=== PATIENT | male | born 1955 | race Caucasian/White ===

== ENCOUNTER 2019-05-08 19:31 | Observation (INO) | payer OTHER ==
[2019-05-08 19:37] VITALS: BMI 27.7
--- NOTE | 2019-05-08 19:37 | PDOC ---
Rapid Medical Evaluation Time Seen by Provider: 05/08/19 19:33 Medical Evaluation: Allergies Allergy/AdvReac Type Severity Reaction Status Date / Time Penicillins Allergy Verified 03/04/16 08:59 05/08/19 19:34 CC: Abdominal pain with SOB x2 days PE: Scattered exp wheezes. Orders: labs, cxr, ekg Patient will proceed to ED for further evaluation. Discharge Disposition - Diagnosis SOB (shortness of breath) - Referrals - Patient Instructions - Post Discharge Activity
--- NOTE | 2019-05-08 20:37 | PDOC ---
Attending Attestation - Resident Resident Name: Virgilio Norris - ED Attending Attestation I have performed the following: I have examined & evaluated the patient, The case was reviewed & discussed with the resident, I agree w/resident's findings & plan - HPI HPI: 05/08/19 23:26 see resident hpi - Physicial Exam PE: 05/08/19 23:27 see resident exam - Medical Decision Making 05/08/19 23:28 64-year-old male with dyspnea, worsening as well as intermittent chest pain Patient does have an extensive history including valve replacement secondary to endocarditis/IV drug use Due to hypoxia a CTA of the chest has been ordered EKG shows a sinus rhythm at 75 bpm with a right bundle branch block Patient symptoms improved after albuterol We will admit to medical service for serial troponins and further management
--- NOTE | 2019-05-08 20:38 | PDOC ---
History of Present Illness - General Chief Complaint: Pain Stated Complaint: SOB Time Seen by Provider: 05/08/19 19:33 - History of Present Illness Initial Comments: 05/08/19 20:38 64 yo M with h/o DM, Mitral valve replacement, IV heroin abuse, Hep C who p/w SOB. Patient reports two days of intermittent sob at rest and with exertion. States that he feel likes he occasionally gasps for air, with no identifiable triggers. Also endorses intermittent lightheadedness at rest and with exertion. Recent evaluation at [facility] for epigastria pain. Patient denies MILNER, LOC, vision change, palpitations, cough, wheezing, PND, leg swelling/pain, N/V, F,C, CP, urinary complaints, hematuria, BPR, diarrhea, constipation, weakness, sensory changes. PMHx: as noted above. Denies h/Anibal, stent placement, CABG, PE/DVT. Denies hormone therapy, recent surgery, travel, or immobilization. ROS: as noted SHx: + daily tobacco use 1/4 ppd. Denies IVDA. Allergies: PCN PMD: Alli Ayers Past History - Past Medical History Allergies/Adverse Reactions: Allergies Allergy/AdvReac Type Severity Reaction Status Date / Time Penicillins Allergy Verified 05/08/19 19:37 Home Medications: Ambulatory Orders Famotidine [Pepcid] 40 mg PO DAILY #30 tablet 03/04/16 metFORMIN HCL [Metformin HCl ER] 1,000 mg PO BID 03/04/16 Aripiprazole [Abilify] 5 mg PO DAILY #30 tablet 03/29/18 Aripiprazole [Abilify] 5 mg PO DAILY #30 tablet 05/03/18 Buspirone HCl [Buspar -] 15 mg PO BID #60 tablet 05/03/18 Sertraline HCl [Zoloft -] 50 mg PO DAILY #30 tablet 05/03/18 Buspirone HCl [Buspar -] 15 mg PO BID #60 tablet 07/05/18 Sertraline HCl [Zoloft -] 50 mg PO DAILY #30 tablet 07/05/18 Aripiprazole [Abilify] 5 mg PO HS #30 tablet 08/16/18 Buspirone HCl [Buspar -] 15 mg PO BID #60 tablet 08/16/18 Sertraline HCl [Zoloft -] 50 mg PO DAILY #30 tablet 08/16/18 Aripiprazole [Abilify] 10 mg PO HS #30 tablet 09/13/18 Buspirone HCl [Buspar -] 15 mg PO BID #60 tablet 09/13/18 Sertraline HCl [Zoloft -] 50 mg PO DAILY #30 tablet 09/13/18 Buspirone HCl [Buspar -] 15 mg PO BID #60 tablet 11/08/18 Sertraline HCl [Zoloft -] 50 mg PO DAILY #30 tablet 11/08/18 Buspirone HCl [Buspar -] 15 mg PO BID #60 tablet 12/06/18 Sertraline HCl [Zoloft -] 50 mg PO DAILY #30 tablet 12/06/18 Buspirone HCl [Buspar -] 15 mg PO BID #60 tablet 01/03/19 Sertraline HCl [Zoloft -] 50 mg PO DAILY #30 tablet 01/03/19 Buspirone HCl [Buspar -] 15 mg PO BID #60 tablet 03/12/19 Sertraline HCl [Zoloft -] 50 mg PO DAILY #30 tablet 03/12/19 Asthma: Yes Cancer: No Cardiac Disorders: Yes (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 4 years ago [facility]) CVA: No COPD: Yes CHF: No Diabetes: Yes HTN: No Hypercholesterolemia: No Seizures: No Thyroid Disease: No - Surgical History Cardiac Surgery: Yes (PIV valve mitral 4 years ago) Orthopedic Surgery: Yes (Spinal fusion L2 L3) - Psycho Social/Smoking Cessation Hx Smoking History: Current every day smoker Have you smoked in the past 12 months: Yes Number of Cigarettes Smoked Daily: 3 Information on smoking cessation initiated: Yes 'Breaking Loose' booklet given: 03/04/16 Hx Alcohol Use: No Drug/Substance Use Hx: Yes (Methadone) Substance Use Type: None Review of Systems - Review of Systems Comments:: 05/08/19 20:38 GENERAL/CONSTITUTIONAL: No fever or chills. No weakness. HEAD, EYES, EARS, NOSE AND THROAT: No change in vision. No ear pain or discharge. No sore throat. CARDIOVASCULAR: No chest pain. RESPIRATORY: + SOB. No cough, wheezing, or hemoptysis. GASTROINTESTINAL: No nausea, vomiting, diarrhea or constipation. GENITOURINARY: No dysuria, frequency, or change in urination. MUSCULOSKELETAL: No joint or muscle swelling or pain. No neck or back pain. SKIN: No rash NEUROLOGIC: No headache, vertigo, loss of consciousness, or change in strength/sensation. ENDOCRINE: No increased thirst. No abnormal weight change HEMATOLOGIC/LYMPHATIC: No anemia, easy bleeding, or history of blood clots. ALLERGIC/IMMUNOLOGIC: No hives or skin allergy. *Physical Exam - Vital Signs Last Vital Signs Temp Pulse Resp BP Pulse Ox 98.1 F 84 18 145/76 92 L 05/08/19 19:34 05/08/19 19:34 05/08/19 19:34 05/08/19 19:34 05/08/19 19:34 - Physical Exam 05/08/19 20:38 GENERAL: Awake, alert, and fully oriented, in no acute distress HEAD: No signs of trauma, normocephalic, atraumatic EYES: PERRLA, EOMI, sclera anicteric, conjunctiva clear ENT: Auricles normal inspection, hearing grossly normal, nares patent, oropharynx clear without exudates. Moist mucosa NECK: Normal ROM, supple, no lymphadenopathy, JVD, or masses LUNGS: No distress, speaks full sentences, clear to auscultation bilaterally HEART: Regular rate and rhythm, normal S1 and S2, no murmurs, rubs or gallops, peripheral pulses normal and equal bilaterally. ABDOMEN: + nontender, midline abdominal portrusion. Soft, nontender, n ormoactive bowel sounds. No guarding, no rebound. EXTREMITIES : Normal inspection, Normal range of motion, no edema. No clubbing or cyanosis NEUROLOGICAL: Cranial nerves II through XII grossly intact. Normal speech, normal gait, no focal sensorimotor deficits SKIN: Warm, Dry, normal turgor, no rashes or lesions noted ED Treatment Course - LABORATORY CBC & Chemistry Diagram: 05/08/19 21:28 05/08/19 21:28 - ADDITIONAL ORDERS Additional order review: 05/09/19 00:52 Patient Information: : 1955 Order Type: Preliminary Name: DAJA SLOAN Sex: M Study Description: CT CTA CHEST Modality: CT Location: [facility] Referring Physician: BASIA GEE Comments: Abdi Veliz MD wrote on May 09, 2019 at 12:48 AM: Referring Physician: BASIA GEE Patient Name: LUTHER FARNSWORTH THIS IS A PRELIMINARY REPORT FROM [facility] DATE OF SERVICE: 2019-05-08 23:12:07 IMAGES: [id number] EXAM: CTA CHEST HISTORY: Rule out PE. COMPARISON: None. FINDINGS: Unremarkable imaged thyroid gland. Normal caliber aorta with atherosclerotic calcifications in the aorta, coronary arteries, and great vessels. Heart is the upper limits of normal in size with trace pericardial fluid versus pericardial thickening. Enlarged right atrium. Benign-appearing axillary, mediastinal, and hilar lymph nodes. Evaluation for PE very limited due to suboptimal opacification of the pulmonary arteries. No obvious filling defect seen in the pulmonary trunk and right and left main pulmonary arteries. CONFIDENTIALITY NOTICE: This information is intended only for the use of the recipient(s) named above. If you are not the intended recipient, or a person responsible for delivering it to the intended recipient, you are hereby notified that any disclosure, copying, distribution or use of any of the information contained in or attached to this transmission is STRICTLY PROHIBITED. If you have received this transmission in error, please immediately notify [facility] and destroy the original transmission and its attachments without saving them in any manner [address] [facility] [address] [place] [address] Phone: [phone] ([phone]) Fax: Email: [email or web address] Web: [email or web address] Patient Information: : 1955 Order Type: Preliminary Name: DAJA SLOAN Sex: M Study Description: CT CTA CHEST Modality: CT Location: [facility] Referring Physician: BASIA GEE Scattered areas of atelectasis versus scarring in both lungs. Biapical pleural/parenchymal scarring with emphysematous changes. No infiltrates or effusions. Bilateral renal cysts. Fatty replaced pancreas. No acute osseous changes. IMPRESSION: 1. Limited study for PE due to suboptimal opacification of the pulmonary arteries without any gross PE seen in the pulmonary trunk and right and left main pulmonary arteries. 2. ASVD. 3. Scattered areas of atelectasis versus scarring in both lungs. 4. Heart at the upper limits of normal in size with right atrial enlargement. Other findings as above. One or more of the following dose reduction techniques were used: automated exposure control, adjustment of the mA and/or kV according to patient size, use of iterative re constructive technique. THIS DOCUMENT HAS BEEN ELECTRONICALLY SIGNED Abdi Veliz MD 05/09/2019 00:47 EST M.D. Please call [facility] [phone]) with questions Medical Decision Making - Medical Decision Making 05/08/19 20:41 64 yo M with h/o DM, Mitral valve replacement, IV heroin abuse, Hep C who p/w SOB. 92 % O2 on RA, vitals otherwise wnl, AF, A&Ox3. Physical exam unremarkable. Patient Denies LOC, vision change, palpitations, cough, wheezing, leg swelling/pain, N/V, F,C, CP, urinary complaints, hematuria, BPR, diarrhea, constipation, weakness, sensory changes. ACS RI r/o. Will consider CHF, PNA, COPD/Asthma. Perc + PE based on O2 sat. Low risk PE per Wells criteria. Will reassess. Ed Course: EKG: RBBB, NSR with absent KIT, STD. QTc 495, Otherwise nml interval duration and axis. Nml R wave progression. Absent Q waves. Similar to interval EKG 2015. 05/09/19 00:52 CTAP IMPRESSION: 1. Limited study for PE due to suboptimal opacification of the pulmonary arteries without any gross PE seen in the pulmonary trunk and right and left main pulmonary arteries. 2. ASVD. 3. Scattered areas of atelectasis versus scarring in both lungs. 4. Heart at the upper limits of normal in size with right atrial enlargement. Other findings as above. One or more of the following dose reduction techniques were used: automated exposure control, adjustment of the mA and/or kV according to patient size, use of iterative reconstructive technique. 05/09/19 02:30 Patient endorsed to Alicia Yee NP. Admitted to tele. Discharge - Discharge Information Problems reviewed: Yes Clinical Impression/Diagnosis: SOB (shortness of breath), Chest pain at rest Dyspnea Qualifiers: Dyspnea type: unspecified Qualified Code(s): R06.00 - Dyspnea, unspecified Condition: Stable - Admission Yes - Follow up/Referral Referrals: Alli Ayers [Primary Care Provider] - - Patient Discharge Instructions Additional Instructions: Please return to the emergency department with any new or worsening symptoms or concerns. Please follow up with your primary care physician within 72 hours. - Post Discharge Activity
[2019-05-08] MEDS ORDERED: ALBUTEROL SO4 2.5/IPRATROPIUM 0.5 INH SOL 3 ML VIAL.NEB. NEB ONE (21:08)
[2019-05-08] MEDS: ALBUTEROL SO4 2.5/IPRATROPIUM 0.5 INH SOL 3 ML VIAL.NEB. NEB SCH ×4 (21:31→22:11)
[2019-05-08 21:42] LABS: BASO % 0.5 % (0-2.0); EOS % 0.4 % (0-4.5); HEMATOCRIT 41.1 % (35.4-49); HEMOGLOBIN 13.6 GM/dL (11.7-16.9); LYMPH % 17.5 % (8-40); MCH 30.4 pg (25.7-33.7); MEAN CELL VOLUME 91.9 fl (80-96); MEAN PLT VOLUME 9.3 fl (7.5-11.1); MONO % 8.6 % (3.8-10.2); PLATELET COUNT 145 K/MM3 (134-434); RBC 4.47 M/mm3 (4.00-5.60); RDW 13.3 % (11.9-15.9); WHITE BLOOD COUNT 10.8 K/mm3 (4.0-10.0)
[2019-05-08 22:18] LABS: ALBUMIN 3.3 g/dl (3.4-5.0); BILIRUBIN,TOTAL 0.5 mg/dL (0.2-1); CALCIUM 9.1 mg/dL (8.5-10.1); CREATININE 1.2 mg/dL (0.55-1.3); MAGNESIUM 2.1 mg/dL (1.8-2.4); POTASSIUM 4.2 mmol/L (3.5-5.1); TOT PROT 6.6 g/dl (6.4-8.2)
[2019-05-08] MEDS ORDERED: methylPREDNISolone NA SUCC 125 MG/2 ML VIAL IVPUSH ONE (23:38)
--- NOTE | 2019-05-09 02:33 | HP ---
Admitting History and Physical - Primary Care Physician PCP: Alli Ayers - Admission Chief Complaint: SOB History of Present Illness: This is a 64 y/o male with a PMHx of DM, Mitral Valve Replacement, IV heroin abuse, Hep C, Tobacco Smoker. Who presents to the ED with SOB x 2 days. Patient reports intermittent sob at rest and with exertion. He reports periods of gasping for air, with no identifiable triggers. He reports having intermittent lightheadedness at rest and with exertion. Recent evaluation at [facility] for epigastric pain. Patient denies visual changes, parasthesias, facial droop. Patient denies fever, chills, cough, MILNER, CP, palpitations, AP, N/V/D, constipation, dysuria. History Source: Patient Limitations to Obtaining History: No Limitations - Past Medical History Cardiovascular: Yes: Mitral Insufficiency (no AC) Pulmonary: Yes: COPD Hepatobiliary: Yes: Hepatitis C Endocrine: Yes: Diabetes Mellitus - Past Surgical History Past Surgical History: Yes: Valve Replacement - Smoking History Smoking history: Current every day smoker Have you smoked in the past 12 months: Yes Aproximately how many cigarettes per day: 5 - Alcohol/Substance Use Hx Alcohol Use: No History of Substance Use: reports: Heroin - Social History Usual Living Arrangement: Yes: Alone ADL: Independent History of Recent Travel: No Home Medications - Allergies Allergies/Adverse Reactions: Allergies Allergy/AdvReac Type Severity Reaction Status Date / Time Penicillins Allergy Verified 05/08/19 19:37 - Home Medications Home Medications: Ambulatory Orders Albuterol 0.083% Nebulizer Anastasia [Ventolin 0.083% Nebulizer Soln -] 1 amp NEB PRN PRN 05/09/19 Famotidine 20 mg PO DAILY 05/09/19 Methadone [Dolophine -] 60 mg PO DAILY 05/09/19 Sitagliptin Phosphate [Januvia -] 50 mg PO DAILY 05/09/19 Family Medical History Family Hx Cardiac Disorders: Father () Family Hx Respiratory Disorders: Mother (TB, ) Other Family History: Sister Alive and Well Review of Systems - Review of Systems Constitutional: reports: No Symptoms Eyes: reports: No Symptoms HENT: reports: No Symptoms Neck: reports: No Symptoms Cardiovascular: reports: Shortness of Breath Respiratory: reports: Orthopnea, SOB, SOB on Exertion Gastrointestinal: reports: No Symptoms Genitourinary: reports: No Symptoms Breasts: reports: No Symptoms Reported Musculoskeletal: reports: No Symptoms Integumentary: reports: No Symptoms Neurological: reports: Dizziness Endocrine: reports: No Symptoms Hematology/Lymphatic: reports: No Symptoms Psychiatric: reports: No Symptoms Physical Examination Vital Signs: Vital Signs Temperature 98.5 F 05/08/19 20:45 Pulse Rate 76 05/08/19 20:45 Respiratory Rate 21 H 05/08/19 20:45 Blood Pressure 122/91 05/08/19 20:45 O2 Sat by Pulse Oximetry (%) 100 05/08/19 20:45 Constitutional: Yes: No Distress, Anxious Eyes: Yes: WNL, Conjunctiva Clear, EOM Intact, PERRL HENT: Yes: WNL, Atraumatic, Normocephalic Neck: Yes: WNL, Supple, Trachea Midline Cardiovascular: Yes: WNL, Regular Rate and Rhythm, S1, S2 Respiratory: Yes: Diminished (bases) Gastrointestinal: Yes: Normal Bowel Sounds, Abdomen, Obese, Hernia ...Rectal Exam: Yes: Deferred Renal/: Yes: WNL Breast(s): Yes: WNL Musculoskeletal: Yes: WNL Extremities: Yes: WNL Edema: No Peripheral Pulses WNL: Yes Neurological: Yes: WNL, Alert, Oriented, Cran Nerves II-XII Intact ...Motor Strength: WNL Psychiatric: Yes: WNL, Alert, Oriented Labs: CBC, BMP 05/08/19 21:28 05/08/19 21:28 Laboratory Results - last 24 hr 05/08/19 05/08/19 05/08/19 21:28 21:28 21:28 WBC 10.8 H RBC 4.47 Hgb 13.6 Hct 41.1 MCV 91.9 MCH 30.4 MCHC 33.0 RDW 13.3 Plt Count 145 MPV 9.3 Absolute Neuts (auto) 7.9 Neutrophils % 73.0 Lymphocytes % 17.5 D Monocytes % 8.6 Eosinophils % 0.4 D Basophils % 0.5 Nucleated RBC % 0 Sodium 139 Potassium 4.2 Chloride 100 Carbon Dioxide 35 H Anion Gap 4 L BUN 22.0 H Creatinine 1.2 Est GFR (CKD-EPI)AfAm 73.62 Est GFR (CKD-EPI)NonAf 63.52 Random Glucose 108 H Calcium 9.1 Magnesium 2.1 Total Bilirubin 0.5 AST 22 ALT 23 Alkaline Phosphatase 92 Creatine Kinase 84 Troponin I 0.02 Total Protein 6.6 Albumin 3.3 L Urine Color Urine Appearance Urine pH Ur Specific [place] Urine Protein Urine Glucose (UA) Urine Ketones Urine Blood Urine Nitrite Urine Bilirubin Urine Urobilinogen Ur Leukocyte Esterase Urine WBC (Auto) Urine RBC (Auto) Opiates Screen Methadone Screen Barbiturate Screen Phencyclidine Screen Ur Amphetamines Screen MDMA (Ecstasy) Screen Benzodiazepines Screen Cocaine Screen U Marijuana (THC) Screen 05/09/19 05/09/19 02:20 02:20 WBC RBC Hgb Hct MCV MCH MCHC RDW Plt Count MPV Absolute Neuts (auto) Neutrophils % Lymphocytes % Monocytes % Eosinophils % Basophils % Nucleated RBC % Sodium Potassium Chloride Carbon Dioxide Anion Gap BUN Creatinine Est GFR (CKD-EPI)AfAm Est GFR (CKD-EPI)NonAf Random Glucose Calcium Magnesium Total Bilirubin AST ALT Alkaline Phosphatase Creatine Kinase Troponin I Total Protein Albumin Urine Color Colorless Urine Appearance Clear Urine pH 5.0 Ur Specific [place] 1.006 L Urine Protein Negative Urine Glucose (UA) Negative Urine Ketones Negative Urine Blood Negative Urine Nitrite Negative Urine Bilirubin Negative Urine Urobilinogen 0.2 Ur Leukocyte Esterase Negative Urine WBC (Auto) 1 Urine RBC (Auto) 2 Opiates Screen Negative Methadone Screen Positive A* Barbiturate Screen Negative Phencyclidine Screen Negative Ur Amphetamines Screen Negative MDMA (Ecstasy) Screen Negative Benzodiazepines Screen Negative Cocaine Screen Negative U Marijuana (THC) Screen Negative Intake & Output 05/06/19 05/07/19 05/08/19 05/09/19 23:59 23:59 23:59 23:59 Weight 78.018 kg Current Medications Generic Name Dose Route Start Last Admin Trade Name Freq PRN Reason Stop Dose Admin Albuterol/Ipratropium 1 amp 05/09/19 05:48 Duoneb - NEB Q6H PRN SHORTNESS OF BREATH Budesonide/Formoterol Fumarate 2 puff 05/09/19 10:00 Symbicort 160/4.5mcg - IH BID FIONA Heparin Sodium (Porcine) 5,000 unit 05/09/19 10:00 Heparin - SQ BID FIONA Melatonin 5 mg 05/09/19 05:46 Melatonin PO HS PRN INSOMNIA Imaging - Results Chest X-ray: Image Reviewed Cat Scan: Image Reviewed EKG: Image Reviewed Problem List - Problems (1) COPD with acute exacerbation Code(s): J44.1 - CHRONIC OBSTRUCTIVE PULMONARY DISEASE W (ACUTE) EXACERBATION (2) Respiratory failure with hypoxia Code(s): J96.91 - RESPIRATORY FAILURE, UNSPECIFIED WITH HYPOXIA (3) SOB (shortness of breath) Code(s): R06.02 - SHORTNESS OF BREATH (4) Diabetes 1.5, managed as type 2 Code(s): E13.9 - OTHER SPECIFIED DIABETES MELLITUS WITHOUT COMPLICATIONS (5) H/O mitral valve replacement Code(s): Z95.2 - PRESENCE OF PROSTHETIC HEART VALVE (6) History of heroin abuse Code(s): F11.11 - OPIOID ABUSE, IN REMISSION (7) Tobacco dependence Code(s): F17.200 - NICOTINE DEPENDENCE, UNSPECIFIED, UNCOMPLICATED Assessment/Plan This is a 64 y/o man with a PMHx of Mitral Valve Repair, DM, Heroin Abuse, Hepatitis C, Tobacco Dependence. Admitted to M/S for Acute COPD Exacerbation, Acute Respiratory Failure with Hypoxia for further evaluation of their emergent condition. Plan: Admit Likely COPD vs Emphysema vs PE vs Pneumonia WELLS Score 0-3 PERC Rule 2 CURB65 1 Chest Xray- reviewed CTA- neg PE, no infiltrate Appreciate Pulmonology consult Continue O2 Solumderol given in ED, will continue Duonebs Continue home meds when verified in am Monitor CBC, BMP EKG- reviewed BGMs ISS Smoking Cessation discussed FEN- PO fluids as tolerated, replete lytes prn, Low Na, Diabetic Diet DVT ppx- OOB, SCDs, Heparin SQ Dispo: Requires Inpatient Care Visit type - Emergency Visit Emergency Visit: Yes ED Registration Date: 05/08/19 Care time: The patient presented to the Emergency Department on the above date and was hospitalized for further evaluation of their emergent condition. - New Patient This patient is new to me today: Yes Date on this admission: 05/09/19 - Critical Care Critical Care patient: No
[2019-05-09 03:09] LABS: COCAINE, UR NEGATIVE ng/ml (CUTOFF=300); OPIATES, URI NEGATIVE ng/ml (CUTOFF=300); PHENCYCLIDINE,URINE NEGATIVE ng/ml (CUTOFF=25); URINE AMPHETAMINES NEGATIVE ng/ml (CUTOFF=500); URINE BARBITURATES NEGATIVE ng/ml (CUTOFF=200); URINE BENZODIAZEPINES NEGATIVE ng/ml (CUTOFF=200)
[2019-05-09 03:28] LABS: METHADONE, UR POSITIVE ng/ml (CUTOFF=300)
[2019-05-09 05:29] LABS: URINE APPEARANCE CLEAR; URINE BILIRUBIN NEGATIVE (NEGATIVE); URINE COLOR COLORLESS; URINE GLUCOSE (UA) NEGATIVE (NEGATIVE); URINE KETONE NEGATIVE (NEGATIVE)
[2019-05-09 05:30] LABS: URINE LEUK ESTERASE NEGATIVE (NEGATIVE); URINE NITRITE NEGATIVE (NEGATIVE); URINE PROTEIN NEGATIVE (NEGATIVE); URINE RBC 2 /hpf (0-4); URINE UROBILINOGEN 0.2 mg/dL (0.2-1.0); URINE WBC 1 /hpf (0-5)
[2019-05-09] MEDS ORDERED: ALBUTEROL SO4 2.5/IPRATROPIUM 0.5 INH SOL 3 ML VIAL.NEB. NEB PRN (05:48)
[2019-05-09] MEDS ORDERED: FAMOTIDINE 20 MG/50 ML IVPB 20 MG/50 ML MG IVPB ONE ×2 (06:17→06:38)
[2019-05-09] MEDS ORDERED: METHADONE HCL 40 MG DISPERSABLE TABLET PO SCH (06:30)
[2019-05-09] MEDS ORDERED: METHADONE HCL 10 MG TABLET ONE (06:37)
[2019-05-09] MEDS ORDERED: METHADONE HCL 40 MG DISPERSABLE TABLET ONE (06:38)
[2019-05-09 06:44] LABS: BASO % 0.2 % (0-2.0); HEMATOCRIT 43.4 % (35.4-49); HEMOGLOBIN 14.4 GM/dL (11.7-16.9); MCH 30.5 pg (25.7-33.7); MCHC 33.2 g/dl (32.0-35.9); MEAN CELL VOLUME 91.8 fl (80-96); MEAN PLT VOLUME 9.6 fl (7.5-11.1); NEUT % 92.8 % (42.8-82.8); PLATELET COUNT 152 K/MM3 (134-434); RBC 4.73 M/mm3 (4.00-5.60); RDW 13.5 % (11.9-15.9); WHITE BLOOD COUNT 6.8 K/mm3 (4.0-10.0)
[2019-05-09] MEDS: METHADONE 40 MG, METHADONE 20 MG PO SCH (06:46)
[2019-05-09 07:18] LABS: ALBUMIN 3.8 g/dl (3.4-5.0); BILIRUBIN,TOTAL 0.8 mg/dL (0.2-1); BLOOD UREA NITROGEN 19.1 mg/dL (7-18); CALCIUM 9.6 mg/dL (8.5-10.1); CREATININE 1.3 mg/dL (0.55-1.3); POTASSIUM 4.3 mmol/L (3.5-5.1); TOT PROT 7.7 g/dl (6.4-8.2)
--- NOTE | 2019-05-09 08:43 | EKG ---
Test Reason : Blood Pressure : / mmHG Vent. Rate : 075 BPM Atrial Rate : 075 BPM P-R Int : 156 ms QRS Dur : 148 ms QT Int : 444 ms P-R-T Axes : 054 036 039 degrees QTc Int : 495 ms NORMAL SINUS RHYTHM RIGHT BUNDLE BRANCH BLOCK ABNORMAL ECG WHEN COMPARED WITH ECG OF 04-MAR-2016 10:01, VENT. RATE HAS INCREASED BY 26 BPM NONSPECIFIC T WAVE ABNORMALITY NOW EVIDENT IN INFERIOR LEADS T WAVE INVERSION NOW EVIDENT IN ANTERIOR LEADS Confirmed by MD FITZ, KANE ([id number]) on 05/09/2019 8:43:20 AM Referred By: Confirmed By:KANE BYRNES MD
[2019-05-09] MEDS ORDERED: HEPARIN NA (PORCINE) 5,000 UNITS/ML 1ML VIAL ONE (09:25)
[2019-05-09] MEDS: HEPARIN NA (PORCINE) 5,000 UNITS/ML 1ML VIAL SQ SCH ×2 (09:31→21:53)
[2019-05-09] MEDS: BUDESONIDE/FORMETEROL FUMARATE 160/4.5 mcg INHALER IH SCH ×2 (09:31→21:44)
[2019-05-09 10:22] LABS: ANISOCYTOSIS 0; MACROCYTOSIS 0; PLATELET ESTIMATE NORMAL
--- NOTE | 2019-05-09 11:09 | PN ---
Progress Note (short form) - Note Progress Note: ID consult dictated imp/reccd 64 yo man admitted with 3 to 4 weeks of worsening sob- intermittent LE edema no fevers, no cough chest CTA- no infiltrate hep c treated reports HIV negative on methadone no need for antibiotics consider pulmonary/cardiology evaluations please call back if needed
--- NOTE | 2019-05-09 12:27 | CONS ---
DATE OF CONSULTATION: DATE OF DICTATION: 05/09/2019 INFECTIOUS DISEASE CONSULTATION REQUESTING PHYSICIAN: Mauricio Upton MD HISTORY OF PRESENT ILLNESS: This is a 64-year-old man presented to the ER with a several week history; he describes 2 to 3 weeks, of worsening shortness of breath when he ambulates. He also notes that he has had some abdominal discomfort for the last several months. He has a history of COPD and asthma. He is an active smoker, as well as he has a bioprosthetic mitral valve that was done in 2009 at [facility]. He denies any fevers. He has no cough. He notes he has increased shortness of breath at rest. He has occasional lower extremity edema and worsening dyspnea with exercise. He has no chills. He has no headache. He has no nausea, vomiting, diarrhea, constipation, or dysuria. He denies any chest pain. He is followed by Dr. Ayers in the community. 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 PAST MEDICAL HISTORY: Notable for COPD. He has a history of asthma. He has a history of hepatitis C that was treated 3 years ago with success and diabetes. He is a former substance user. He has been on methadone now since 2004. His last heroin use was over 25 years ago. PAST SURGICAL HISTORY: Notable for a bioprosthetic mitral valve that was done at [facility] in 2009 for a valve infection. He reports he has been recently tested and is HIV negative. He denies any current substance use. SOCIAL HISTORY: He is a current every day smoker. He smokes 5 cigarettes a day. No history of alcohol, former substance use. He is originally from [place]. He came to this country at age 5. There is no history of any recent travel. ALLERGIES: He is allergic to PENICILLIN. MEDICATIONS: His medications at home include famotidine, albuterol, Januvia and methadone. REVIEW OF SYSTEMS: As per HPI. He notes he saw a doctor for this mid epigastric pain he has and was told there was nothing wrong. PHYSICAL EXAMINATION: Vital Signs: His temperature is 98.3. He has been afebrile since admission. His pulse is 73, blood pressure 117/86, respiratory rate is 18. He is saturating 97% on room air. HEENT: He is normocephalic. His eyes are anicteric. He has no conjuctival hemorrhages. He has no thrush. He is edentulous. He has upper and lower dentures. He has no pharyngitis. Neck: Supple. Lungs: Clear to auscultation. Heart: Is regular rate and rhythm. Abdomen: Soft, nontender. Extremities: Without edema. LABORATORY DATA: White count is 6.8, hemoglobin 14.4, platelets are 152. His U-Tox is notable for methadone. BUN is 19, creatinine 1.3, with normal LFTs. He had a chest CTA done, which shows no evidence of infiltrate, notable for emphysema. SUMMARY: In summary, this is a 64-year-old man who I suspect is having a chronic obstructive pulmonary disease exacerbation. I would be as well concerned about the role of perhaps whether he had some mild heart failure given the leg edema and the shortness of breath. RECOMMENDATIONS: He should be seen by Pulmonary, as well as Cardiology and should maybe have an echo done. I do not suspect he has an infection at this time, no role for antibiotics. He reports he is HIV negative, no history of substance use and his hepatitis C has been treated. Please call back if needed. MELISSA PHELPS M.D. [id number] MTDD
--- NOTE | 2019-05-09 13:18 | CON.PULM ---
Consult Consult Specialty:: PULMONARY Referred by:: Dr Upton Reason for Consultation:: shortness of breath - History of Present Illness Chief Complaint: shortness of breath History of Present Illness: 64yo male with h/o DM, COPD, h/o MVR, Hep C, heroin abuse, smoker who was admitted with worsening shortness of breath x 3 days. Denies chest pain but with chest tightness. No cough or wheezing. No fevers, chills or sweats. No sick contacts or recent travel. Maintained at home on once daily Dulera and Ventolin 5-6x/day. He is an active smoker, wishes to quit. Started as a teenager and smoked as much as 2 PPD. - History Source History Provided By: Patient, Medical Record Limitations to Obtaining History: No Limitations - Past Medical History Cardio/Vascular: Yes: Mitral Insufficiency (no AC) Pulmonary: Yes: COPD Hepatobiliary: Yes: Hepatitis C Endocrine: Yes: Diabetes Mellitus - Past Surgical History Past Surgical History: Yes: Valve Replacement - Alcohol/Substance Use Hx Alcohol Use: No History of Substance Use: reports: Heroin - Smoking History Smoking history: Current every day smoker Have you smoked in the past 12 months: Yes Aproximately how many cigarettes per day: 5 - Social History ADL: Independent History of Recent Travel: No Home Medications - Allergies Allergies/Adverse Reactions: Allergies Allergy/AdvReac Type Severity Reaction Status Date / Time Penicillins Allergy Verified 05/08/19 19:37 - Home Medications Home Medications: Ambulatory Orders Albuterol 0.083% Nebulizer Anastasia [Ventolin 0.083% Nebulizer Soln -] 1 amp NEB PRN PRN 05/09/19 Famotidine 20 mg PO DAILY 05/09/19 Methadone [Dolophine -] 60 mg PO DAILY 05/09/19 Sitagliptin Phosphate [Januvia -] 50 mg PO DAILY 05/09/19 Review of Systems - Review of Systems Constitutional: denies: Chills, Fever Eyes: denies: Recent Change in Vision HENT: denies: Nasal Congestion, Throat Pain Neck: denies: Stiffness, Tenderness Cardiovascular: reports: Shortness of Breath. denies: Chest Pain, Edema, Palpitations Respiratory: reports: Exercise Intolerance, SOB, SOB on Exertion. denies: Cough , Hemoptysis, Wheezing Gastrointestinal: denies: Abdominal Pain, Nausea, Vomiting Genitourinary: denies: Dysuria, Hematuria Neurological: denies: Dizziness, Headache Endocrine: denies: Unexplained Weight Loss Physical Exam Vital Sings: Vital Signs Temperature 98.3 F 05/09/19 07:01 Pulse Rate 73 05/09/19 07:01 Respiratory Rate 18 05/09/19 07:01 Blood Pressure 117/86 05/09/19 07:01 O2 Sat by Pulse Oximetry (%) 97 05/09/19 07:01 Constitutional: Yes: Calm Eyes: Yes: Conjunctiva Clear, EOM Intact HENT: Yes: Atraumatic, Normocephalic Neck: Yes: Supple, Trachea Midline Cardiovascular: Yes: Regular Rate and Rhythm Respiratory: Yes: Poor Air Entry ...Clubbing: No Gastrointestinal: Yes: Normal Bowel Sounds, Soft. No: Tenderness Edema: No Neurological: Yes: Alert, Oriented Labs: CBC, BMP 05/09/19 06:15 05/09/19 06:15 Imaging - Results Chest X-ray: Report Reviewed, Image Reviewed Cat Scan: Report Reviewed, Image Reviewed (emphysematous changes, no infiltrates ) Problem List - Problems (1) COPD with acute exacerbation Code(s): J44.1 - CHRONIC OBSTRUCTIVE PULMONARY DISEASE W (ACUTE) EXACERBATION (2) Smoking Code(s): F17.200 - NICOTINE DEPENDENCE, UNSPECIFIED, UNCOMPLICATED Assessment/Plan Acute COPD Exacerbation Emphysema DM Methadone Maintenance h/o MVR Smoker - IV medrol - inhaled bronchodilators standing and PRN - O2 to keep SpO2 >90% - smoking cessation discussed - outpt PFTs - when ready for discharge, check ambulatory SpO2 on room air to assess for home O2 - DVT prophylaxis Thank you for this consult Alli Beltran MD
[2019-05-09] MEDS ORDERED: ALBUTEROL SO4 0.083% IH SOL 2.5 MG/3 ML VIAL.NEB. NEB PRN (13:19)
[2019-05-09] MEDS: methylPREDNISolone NA SUCC 40 MG/1 ML VIAL IVPUSH SCH ×2 (14:28→17:48)
--- NOTE | 2019-05-09 14:53 | PN ---
Progress Note, Physician Chief Complaint: sob History of Present Illness: 64 year old male with PMH DM, MVR, IV Heroin use, Hep C, tobacco abuse presents to the ED with SOB and chest pain. he states this has been on-going but today was worse. he reports dry cough, no phlegm production. he reports the chest pain resolved in the ED. he lives alone. was recently seen at [facility] for abd pain. - Current Medication List Current Medications: Active Medications Albuterol Sulfate (Ventolin 0.083% Nebulizer Soln -) 1 amp NEB Q4H PRN PRN Reason: SHORT OF BREATH/WHEEZING Albuterol/Ipratropium (Duoneb -) 1 amp NEB RQID [facility] Budesonide/Formoterol Fumarate (Symbicort 160/4.5mcg -) 2 puff IH BID [facility] Last Admin: 05/09/19 09:31 Dose: 2 puff Heparin Sodium (Porcine) (Heparin -) 5,000 unit SQ BID [facility] Last Admin: 05/09/19 09:31 Dose: 5,000 unit Insulin Aspart (Novolog Vial Sliding Scale -) 1 vial SQ ACHS [facility]; Protocol Melatonin (Melatonin) 5 mg PO HS PRN PRN Reason: INSOMNIA Methadone HCl 40 mg/ Methadone (HCl 20 mg) 60 mg PO DAILY@0600 [facility] Last Admin: 05/09/19 06:46 Dose: 60 mg Methylprednisolone Sodium Succinate (Solu-Medrol -) 40 mg IVPUSH Q8H-IV [facility] Last Admin: 05/09/19 14:28 Dose: 40 mg - Objective Vital Signs: Vital Signs Temperature 98.2 F 05/09/19 13:32 Pulse Rate 92 H 05/09/19 13:32 Respiratory Rate 19 05/09/19 13:32 Blood Pressure 120/68 05/09/19 13:32 O2 Sat by Pulse Oximetry (%) 100 05/09/19 13:32 Constitutional: Yes: No Distress HENT: Yes: Atraumatic, Normocephalic Neck: Yes: Supple Cardiovascular: Yes: Regular Rate and Rhythm Respiratory: Yes: Diminished Gastrointestinal: Yes: Normal Bowel Sounds, Hernia Genitourinary: Yes: WNL Musculoskeletal: Yes: WNL Extremities: Yes: WNL Integumentary: Yes: WNL Neurological: Yes: Alert, Oriented Labs: CBC, BMP 05/09/19 06:15 05/09/19 06:15 Problem List - Problems (1) COPD with acute exacerbation Assessment/Plan: pulmonary consult appreciated IV steroids gi prophylaxis neb tx ID eval- no antbx Code(s): J44.1 - CHRONIC OBSTRUCTIVE PULMONARY DISEASE W (ACUTE) EXACERBATION (2) History of heroin abuse Assessment/Plan: methadone maint. Code(s): F11.11 - OPIOID ABUSE, IN REMISSION (3) Respiratory failure with hypoxia Assessment/Plan: on exam, off oxygen monitor maintain sat >92% Code(s): J96.91 - RESPIRATORY FAILURE, UNSPECIFIED WITH HYPOXIA (4) Tobacco dependence Assessment/Plan: offered nicotine patch Code(s): F17.200 - NICOTINE DEPENDENCE, UNSPECIFIED, UNCOMPLICATED (5) Diabetes 1.5, managed as type 2 Assessment/Plan: check a1c sliding scale monitor poc while on IVMP Code(s): E13.9 - OTHER SPECIFIED DIABETES MELLITUS WITHOUT COMPLICATIONS (6) H/O mitral valve replacement Assessment/Plan: cont home meds Code(s): Z95.2 - PRESENCE OF PROSTHETIC HEART VALVE (7) Hepatitis C infection Code(s): B19.20 - UNSPECIFIED VIRAL HEPATITIS C WITHOUT HEPATIC COMA (8) Abdominal pain Assessment/Plan: resolved has hernia, advised to see gen surg as outpatient when cardiac/pulm stable check stool occult Code(s): R10.9 - UNSPECIFIED ABDOMINAL PAIN (9) Chest pain at rest Assessment/Plan: cardiology consult tele monitoring echo check trop, first one last night neg Code(s): R07.9 - CHEST PAIN, UNSPECIFIED
[2019-05-09] MEDS: NICOTINE 14 MG/24 HOURS TOPICAL PATCH TD SCH (16:57)
[2019-05-09] MEDS: INSULIN SLIDING SCALE (NOVOLOG) 1 VIAL SQ SCH ×2 (16:59→21:53)
[2019-05-09] MEDS: ALBUTEROL SO4 2.5/IPRATROPIUM 0.5 INH SOL 3 ML VIAL.NEB. NEB SCH ×2 (17:00→20:19)
--- NOTE | 2019-05-09 17:39 | CON.CARD ---
Consult Consult Specialty:: Cardiology Referred by:: Dr. Upton Reason for Consultation:: Chest pain and SOB - History of Present Illness Chief Complaint: Chest pain and SOB History of Present Illness: 64 year-old man, smoker, with a PMHx of DM, s/p mitral valve surgery, IV heroin abuse, Hep C admitted 05/09/19 with chest pain and SOB. Patient reports progressive SOB and intermittent chest pain for 3 weeks. His chest pain is predominantly exertional, also happens at rest. His exercise tolerance decreased markedly. He reports having intermittent lightheadedness at rest and with exertion. No palpitation, syncope or near syncope. ECG: sinus rhythm. RBBB. Inferior non specific T wave abnormalities. No evidence of DE. CXR 05/09/19 showed cardiomegaly. CTA of chest pain revealed no PE. Emphysema noted. - History Source History Provided By: Patient, Medical Record Limitations to Obtaining History: No Limitations - Past Medical History Cardio/Vascular: Yes: Mitral Insufficiency (no AC) Pulmonary: Yes: COPD Hepatobiliary: Yes: Hepatitis C Endocrine: Yes: Diabetes Mellitus - Past Surgical History Past Surgical History: Yes: Valve Replacement - Alcohol/Substance Use Hx Alcohol Use: No History of Substance Use: reports: Heroin - Smoking History Smoking history: Current every day smoker Have you smoked in the past 12 months: Yes Aproximately how many cigarettes per day: 5 - Social History ADL: Independent History of Recent Travel: No Home Medications - Allergies Allergies/Adverse Reactions: Allergies Allergy/AdvReac Type Severity Reaction Status Date / Time Penicillins Allergy Verified 05/08/19 19:37 - Home Medications Home Medications: Ambulatory Orders Albuterol 0.083% Nebulizer Anastasia [Ventolin 0.083% Nebulizer Soln -] 1 amp NEB PRN PRN 05/09/19 Famotidine 20 mg PO DAILY 05/09/19 Methadone [Dolophine -] 60 mg PO DAILY 05/09/19 Sitagliptin Phosphate [Januvia -] 50 mg PO DAILY 05/09/19 Review of Systems - Review of Systems Constitutional: reports: No Symptoms Eyes: reports: No Symptoms HENT: reports: No Symptoms Neck: reports: No Symptoms Cardiovascular: reports: Chest Pain, Shortness of Breath Respiratory: reports: SOB, SOB on Exertion Gastrointestinal: reports: No Symptoms Genitourinary: reports: No Symptoms Breasts: reports: No Symptoms Reported Musculoskeletal: reports: No Symptoms Integumentary: reports: No Symptoms Vital Signs: Vital Signs Temperature 98 F 05/09/19 14:55 Pulse Rate 76 05/09/19 14:55 Respiratory Rate 18 05/09/19 14:56 Blood Pressure 127/83 05/09/19 14:55 O2 Sat by Pulse Oximetry (%) 93 L 05/09/19 14:56 General: Well developed. Well nourished. No acute distress. Head: Normocephalic. Atraumatic, Eyes: PERRLA, EOMI. Sclerae anicteric. Conjunctivae clear. Neck: Supple. No JVD. No bruits. Heart: Normal S1, S2: Regular rhythm and rate. No murmur. No gallop or rub. Lungs: Symmetrical air entry. Clear to auscultation. No crackles. No wheezing or rhonchi. Abdomen: Soft. Bowel sound positive. Non tender. No masses. Extremities: No edema. No clubbing or cyanosis. PD 2+, equal bilaterally. Neuro: Intact, no focal findings. AAO X3. - Other Data Labs, Other Data: CBC, BMP 05/09/19 06:15 05/09/19 06:15 Troponin, BNP 05/08/19 21:28 Troponin I 0.02 Troponin, BNP 05/08/19 21:28 Troponin I 0.02 Assessment/Plan 64 year-old man, smoker, with a PMHx of DM, s/p mitral valve surgery, IV heroin abuse, Hep C admitted 05/09/19 with chest pain and SOB. ECG: sinus rhythm. RBBB. Inferior non specific T wave abnormalities. No evidence of DE. CXR 05/09/19 showed cardiomegaly. CTA of chest pain revealed no PE. Emphysema noted. 1) Angina pectoris: New onset and progressive - unstable angina. No evidence of DE or acute ECG changes. Regadenoson nuclear stress test to rule our myocardial ischemia. 2) Dyspnea: COPD exacerbation. Dr. Beltran's pulmonary evaluation appreciated. Obtain echo to evaluate his cardiac function and mitral valve status. We will follow the patient with you.
[2019-05-09] MEDS: MELATONIN 5 MG TABLETS PO PRN (23:36)
[2019-05-10] MEDS: methylPREDNISolone NA SUCC 40 MG/1 ML VIAL IVPUSH SCH ×3 (02:50→17:20)
[2019-05-10] MEDS ORDERED: METHADONE HCL 10 MG TABLET ONE (06:42)
[2019-05-10] MEDS ORDERED: METHADONE HCL 40 MG DISPERSABLE TABLET ONE (06:42)
[2019-05-10 07:41] LABS: BASO % 0.1 % (0-2.0); HEMOGLOBIN 12.6 GM/dL (11.7-16.9); LYMPH % 5.8 % (8-40); MCH 30.2 pg (25.7-33.7); MCHC 33.1 g/dl (32.0-35.9); MEAN CELL VOLUME 91.2 fl (80-96); MEAN PLT VOLUME 10.1 fl (7.5-11.1); NEUT % 91.1 % (42.8-82.8); PLATELET COUNT 142 K/MM3 (134-434); RBC 4.16 M/mm3 (4.00-5.60); RDW 13.4 % (11.9-15.9); WHITE BLOOD COUNT 12.2 K/mm3 (4.0-10.0)
[2019-05-10 07:45] LABS: ALBUMIN 3.2 g/dl (3.4-5.0); BILIRUBIN,TOTAL 0.8 mg/dL (0.2-1); BLOOD UREA NITROGEN 24.9 mg/dL (7-18); CALCIUM 9.3 mg/dL (8.5-10.1); POTASSIUM 4.6 mmol/L (3.5-5.1); TOT PROT 6.5 g/dl (6.4-8.2)
[2019-05-10] MEDS: ALBUTEROL SO4 2.5/IPRATROPIUM 0.5 INH SOL 3 ML VIAL.NEB. NEB SCH ×4 (08:40→20:04)
[2019-05-10] MEDS ORDERED: PANTOPRAZOLE SODIUM 40 MG VIAL IVPUSH SCH (10:00)
[2019-05-10 10:12] LABS: ANISOCYTOSIS 0; MACROCYTOSIS 0; PLATELET ESTIMATE DECREASED
--- NOTE | 2019-05-10 10:36 | DS ---
Physical Examination Vital Signs: Vital Signs Temperature 97.7 F 05/10/19 02:00 Pulse Rate 70 05/10/19 02:00 Respiratory Rate 18 05/10/19 02:00 Blood Pressure 131/74 05/10/19 02:00 O2 Sat by Pulse Oximetry (%) 94 L 05/09/19 21:00 Findings/Remarks: PATIENT REFUSING NUCLEAR CARDIAC CATH BECAUSE HE DOES NOT WANT ISOTOPE AND CLAUSTROPHOBIC, CAN NOT PERFORM TREADMILL STRESSTEST BC OF EMPHYSEMA. D/W FAMILY AND PATIENT ALONG WITH DR BYRNES FROM CARDIOLOGY [facility] IS CARDIAC CATH AT [facility]. THE FAMILY AND PATIENT ARE ALL IN AGREEMENT. Constitutional: Yes: No Distress HENT: Yes: WNL Neck: Yes: WNL Cardiovascular: Yes: Regular Rate and Rhythm Respiratory: Yes: Diminished Gastrointestinal: Yes: Soft, Abdomen, Obese Labs: CBC, BMP 05/10/19 06:33 05/10/19 06:33 Discharge Summary Problems reviewed: Yes Reason For Visit: SHORTNESS OF BREATH Current Active Problems Abdominal pain (Acute) COPD with acute exacerbation (Acute) Chest pain at rest (Acute) Dyspnea (Acute) History of heroin abuse (Acute) Respiratory failure with hypoxia (Acute) SOB (shortness of breath) (Acute) Tobacco dependence (Acute) Procedures: Principal: LABS/TELE Hospital Course: ADMITTED CHEST PAIN , TRANSFERRING TO [facility] FOR CARDIAC CATH BC CAN NOT HAVE NUCLEAR STRESS TEST DUE TO PHOBIA AND WITH EMPHYSEMA CAN NOT PERFORM TREADMILL TEST. Condition: Stable - Instructions Referrals: Alli Ayers [Primary Care Provider] - Disposition: TRANSFER ACUTE CARE/OTHER HOSP - Home Medications Comprehensive Discharge Medication List: Ambulatory Orders Albuterol 0.083% Nebulizer Anastasia [Ventolin 0.083% Nebulizer Soln -] 1 amp NEB PRN PRN 05/09/19 Famotidine 20 mg PO DAILY 05/09/19 Methadone [Dolophine -] 60 mg PO DAILY 05/09/19 Sitagliptin Phosphate [Januvia -] 50 mg PO DAILY 05/09/19 Albuterol 0.083% Nebulizer Anastasia [Ventolin 0.083% Nebulizer Soln -] 1 amp NEB Q4H PRN amp 05/10/19 Albuterol 2.5/Ipratropium 0.5 [Duoneb -] 1 amp NEB RQID amp 05/10/19 Budesonide/Formeterol Fumarate [SYMBICORT 160/4.5mcg -] 2 puff IH BID inhaler 05/10/19 Heparin - 5,000 unit SQ BID vial 05/10/19 Insulin Sliding Scale [Novolog Vial Sliding Scale -] 1 vial SQ ACHS units 05/10/19 Melatonin 5 mg PO HS PRN tab 05/10/19 Methadone [Dolophine -] 60 mg PO DAILY@0600 tablet 05/10/19 Methadone [Dolophine -] 60 mg PO DAILY@0600 tablet 05/10/19 Methylprednisolone Na Succ [Solu-Medrol -] 40 mg IVPUSH Q8H-IV vial 05/10/19 Nicotine Patch [Nicoderm Patch -] 14 mg TD DAILY patch 05/10/19 Pantoprazole Sodium [Protonix IV] 40 mg IVPUSH DAILY vial 05/10/19
[2019-05-10] MEDS: HEPARIN NA (PORCINE) 5,000 UNITS/ML 1ML VIAL SQ SCH ×2 (11:12→21:14)
[2019-05-10] MEDS: NICOTINE 14 MG/24 HOURS TOPICAL PATCH TD SCH (11:12)
[2019-05-10] MEDS: METHADONE 40 MG, METHADONE 20 MG PO SCH (11:12)
[2019-05-10] MEDS: BUDESONIDE/FORMETEROL FUMARATE 160/4.5 mcg INHALER IH SCH ×2 (11:13→21:14)
[2019-05-10] MEDS: INSULIN SLIDING SCALE (NOVOLOG) 1 VIAL SQ SCH ×3 (11:16→21:14)
--- NOTE | 2019-05-10 12:59 | ECHO ---
Name: LUTHER FARNSWORTH Exam:Adult Echocardiogram Study Date: 05/10/2019 09:07 AM Age: 64 yrs Reason For Study: Arrhythmia Height: 66 in Weight: 172 lb BSA: 1.9 m2 MMode/2D Measurements & Calculations IVSd: 1.0 cm Ao root diam: 3.1 cm LVIDd: 5.2 cm LA dimension: 4.4 cm LVIDs: 3.9 cm ACS: 1.7 cm LVPWd: 0.99 cm IVSs: 1.2 cm LVPWs: 1.4 cm EDV(Syd): 130.0 ml ESV(Teich): 66.0 ml LVOT diam: 2.0 cm LVLd ap4: 7.0 cm EDV(MOD-sp4): 84.0 ml LVLs ap4: 5.8 cm ESV(MOD-sp4): 47.0 ml SV(MOD-sp4): 37.0 ml LAV (MOD-bp): 43.0 ml TAPSE: 1.9 cm RV S Sal: 12.1 cm/sec Doppler Measurements & Calculations MV E max sal: 80.9 cm/sec Ao V2 max: 111.3 cm/sec MV A max sal: 96.3 cm/sec Ao max P.0 mmHg MV E/A: 0.84 PETEY(V,D): 2.5 cm2 MV dec time: 0.19 sec LV V1 max P.2 mmHg SV(LVOT): 55.2 ml LV V1 mean P.5 mmHg LV V1 max: 89.8 cm/sec LV V1 mean: 57.6 cm/sec LV V1 VTI: 17.7 cm TV V2 max: 181.7 cm/sec TR max sal: 260.5 cm/sec TV max P.3 mmHg TR max P.2 mmHg TV V2 mean: 123.2 cm/sec TV mean P.6 mmHg TV V2 VTI: 58.3 cm PA V2 max: 90.9 cm/sec PI end-d sal: 146.6 cm/sec PA max P.3 mmHg PA acc slope: 607.5 cm/sec2 PA acc time: 0.11 sec Med Peak E' Sal: 4.5 cm/sec PA pr(Accel): 31.5 mmHg Med E/e': 18.1 Lat Peak E' Sal: 7.9 cm/sec Lat E/e': 10.3 Tech Comments TDS. Suboptimal apical views. Procedure A complete two-dimensional transthoracic echocardiogram was performed (2D, M-mode, Doppler and color flow Doppler). The study was technically difficult with many images being suboptimal in quality. Left Ventricle The left ventricle is normal in size. Left ventricular systolic function is moderately reduced. Eject ion Fraction = 35-40%. There is moderate global hypokinesis of the left ventricle. Right Ventricle The right ventricle is normal in size and function. Atria The left atrial size is normal. The right atrium is moderately dilated. Mitral Valve There is no mitral regurgitation noted. Tricuspid Valve There is a bioprosthetic tricuspid valve. There is trace tricuspid regurgitation. Right ventricular s ystolic pressure is normal. Aortic Valve No hemodynamically significant valvular aortic stenosis. No aortic regurgitation is present. Pulmonic Valve There is no pulmonic valvular regurgitation. Great Vessels The aortic root is normal size. Pericardium/Pleura There is no pericardial effusion. Interpretation Summary The study was technically difficult with many images being suboptimal in quality. Left ventricular systolic function is moderately reduced. The right ventricle is normal in size and function. The right atrium is moderately dilated. There is a bioprosthetic tricuspid valve. There is trace tricuspid regurgitation. MD Amrik Parikh 05/10/2019 12:58 PM
--- NOTE | 2019-05-10 15:08 | PN ---
Progress Note (short form) - Note Progress Note: Breathing feels stable. No CP or SOB. For transfer to [facility] for cardiac cath. Intake & Output 05/07/19 05/08/19 05/09/19 05/10/19 23:59 23:59 23:59 23:59 Intake Total 900 Balance 900 Weight 172 lb 172 lb Last Vital Signs Temp Pulse Resp BP Pulse Ox 98 F 78 18 138/74 94 L 05/10/19 11:49 05/10/19 11:49 05/10/19 11:49 05/10/19 11:49 05/10/19 11:49 Active Medications Albuterol Sulfate (Ventolin 0.083% Nebulizer Soln -) 1 amp NEB Q4H PRN PRN Reason: SHORT OF BREATH/WHEEZING Albuterol/Ipratropium (Duoneb -) 1 amp NEB RQID [facility] Last Admin: 05/10/19 11:55 Dose: 1 amp Documented by: Budesonide/Formoterol Fumarate (Symbicort 160/4.5mcg -) 2 puff IH BID [facility] Last Admin: 05/10/19 11:13 Dose: 2 puff Documented by: Heparin Sodium (Porcine) (Heparin -) 5,000 unit SQ BID [facility] Last Admin: 05/10/19 11:12 Dose: Not Given Documented by: Insulin Aspart (Novolog Vial Sliding Scale -) 1 vial SQ ACHS [facility]; Protocol Last Admin: 05/10/19 11:16 Dose: Not Given Documented by: Melatonin (Melatonin) 5 mg PO HS PRN PRN Reason: INSOMNIA Last Admin: 05/09/19 23:36 Dose: 5 mg Documented by: Methadone HCl 40 mg/ Methadone (HCl 20 mg) 60 mg PO DAILY@0600 [facility] Last Admin: 05/10/19 11:12 Dose: Not Given Documented by: Methylprednisolone Sodium Succinate (Solu-Medrol -) 40 mg IVPUSH Q8H-IV [facility] Last Admin: 05/10/19 11:12 Dose: 40 mg Documented by: Nicotine (Nicoderm Patch -) 14 mg TD DAILY [facility] Last Admin: 05/10/19 11:12 Dose: 14 mg Documented by: Pantoprazole Sodium (Protonix Iv) 40 mg IVPUSH DAILY [facility] Last Admin: 05/10/19 11:16 Dose: 40 mg Documented by: Constitutional: Yes: NAD Eyes: Yes: Conjunctiva Clear, EOM Intact HENT: Yes: Atraumatic, Normocephalic Neck: Yes: Supple, Trachea Midline Cardiovascular: Yes: Regular Rate and Rhythm Respiratory: Yes: Clear ...Clubbing: No Gastrointestinal: Yes: Normal Bowel Sounds, Soft. No: Tenderness Edema: No Neurological: Yes: Alert, Oriented Labs: Laboratory Results - last 24 hr 05/09/19 05/09/19 05/09/19 16:29 17:30 17:30 WBC RBC Hgb Hct MCV MCH MCHC RDW Plt Count MPV Absolute Neuts (auto) Neutrophils % Neutrophils % (Manual) Band Neutrophils % Lymphocytes % Lymphocytes % (Manual) Monocytes % Monocytes % (Manual) Eosinophils % Eosinophils % (Manual) Basophils % Basophils % (Manual) Myelocytes % (Man) Promyelocytes % (Man) Blast Cells % (Manual) Nucleated RBC % Metamyelocytes Hypochromia Platelet Estimate Polychromasia Poikilocytosis Anisocytosis Microcytosis Macrocytosis Sodium Potassium Chloride Carbon Dioxide Anion Gap BUN Creatinine Est GFR (CKD-EPI)AfAm Est GFR (CKD-EPI)NonAf POC Glucometer 177 Random Glucose Hemoglobin A1c % Calcium Total Bilirubin AST ALT Alkaline Phosphatase Troponin I < 0.02 B-Natriuretic Peptide 493.7 H Total Protein Albumin 05/09/19 05/10/19 05/10/19 21:48 06:13 06:33 WBC RBC Hgb Hct MCV MCH MCHC RDW Plt Count MPV Absolute Neuts (auto) Neutrophils % Neutrophils % (Manual) Band Neutrophils % Lymphocytes % Lymphocytes % (Manual) Monocytes % Monocytes % (Manual) Eosinophils % Eosinophils % (Manual) Basophils % Basophils % (Manual) Myelocytes % (Man) Promyelocytes % (Man) Blast Cells % (Manual) Nucleated RBC % Metamyelocytes Hypochromia Platelet Estimate Polychromasia Poikilocytosis Anisocytosis Microcytosis Macrocytosis Sodium Potassium Chloride Carbon Dioxide Anion Gap BUN Creatinine Est GFR (CKD-EPI)AfAm Est GFR (CKD-EPI)NonAf POC Glucometer 205 165 Random Glucose Hemoglobin A1c % 7.1 H Calcium Total Bilirubin AST ALT Alkaline Phosphatase Troponin I B-Natriuretic Peptide Total Protein Albumin 05/10/19 05/10/19 06:33 06:33 WBC 12.2 H RBC 4.16 Hgb 12.6 Hct 38.0 MCV 91.2 MCH 30.2 MCHC 33.1 RDW 13.4 Plt Count 142 MPV 10.1 Absolute Neuts (auto) 11.1 H Neutrophils % 91.1 H Neutrophils % (Manual) 92.1 H Band Neutrophils % 0.0 Lymphocytes % 5.8 L Lymphocytes % (Manual) 5.9 L D Monocytes % 3.0 L D Monocytes % (Manual) 0 L D Eosinophils % 0.0 Eosinophils % (Manual) 0.0 Basophils % 0.1 Basophils % (Manual) 0.0 Myelocytes % (Man) 0 D Promyelocytes % (Man) 0 Blast Cells % (Manual) 0 Nucleated RBC % 0 Metamyelocytes 0 Hypochromia 0 Platelet Estimate Decreased Polychromasia 0 Poikilocytosis 0 Anisocytosis 0 Microcytosis 0 Macrocytosis 0 Sodium 137 Potassium 4.6 Chloride 100 Carbon Dioxide 32 Anion Gap 5 L BUN 24.9 H Creatinine 1.0 Est GFR (CKD-EPI)AfAm 91.78 Est GFR (CKD-EPI)NonAf 79.19 POC Glucometer Random Glucose 152 H Hemoglobin A1c % Calcium 9.3 Total Bilirubin 0.8 AST 12 L ALT 20 Alkaline Phosphatase 80 Troponin I B-Natriuretic Peptide Total Protein 6.5 Albumin 3.2 L Imaging - Results Chest X-ray: Report Reviewed, Image Reviewed Cat Scan: Report Reviewed, Image Reviewed (emphysematous changes, no infiltrates) Problem List - Problems (1) COPD with acute exacerbation Code(s): J44.1 - CHRONIC OBSTRUCTIVE PULMONARY DISEASE W (ACUTE) EXACERBATION (2) Smoking Code(s): F17.200 - NICOTINE DEPENDENCE, UNSPECIFIED, UNCOMPLICATED Assessment/Plan Acute COPD Exacerbation Emphysema DM Methadone Maintenance h/o MVR Smoker - IV medrol - inhaled bronchodilators standing and PRN - O2 to keep SpO2 >90% - smoking cessation discussed - outpt PFTs - when ready for discharge, check ambulatory SpO2 on room air to assess for home O2 - DVT prophylaxis - For Cardiac Catherization Dr Ornelas
--- NOTE | 2019-05-10 15:13 | PN ---
Progress Note, Physician Chief Complaint: The patient remains stable without recurrent chest pain. He reports no SOB or palpitation. History of Present Illness: 64 year-old man, smoker, with a PMHx of DM, IV heroin abuse, Hep C, s/p tricuspid valve replacement, admitted 05/09/19 with chest pain and SOB. Patient reports progressive SOB and intermittent chest pain for 3 weeks. His chest pain is predominantly exertional, also happens at rest. His exercise tolerance decreased markedly. He reports having intermittent lightheadedness at rest and with exertion. No palpitation, syncope or near syncope. ECG: sinus rhythm. RBBB. Inferior non specific T wave abnormalities. No evidence of AK. CXR 05/09/19 showed cardiomegaly. CTA of chest pain revealed no PE. Emphysema noted. Echo 05/10/19 showed normal LV size with moderate LV systolic dysfunction. LVEF 35-40%. Normal RV. Normal LA and RA. Normal MV and AV. Bio-TV with normal function. Cardiac cath is scheduled for tomorrow at [facility]. - Current Medication List Current Medications: Active Medications Albuterol Sulfate (Ventolin 0.083% Nebulizer Soln -) 1 amp NEB Q4H PRN PRN Reason: SHORT OF BREATH/WHEEZING Albuterol/Ipratropium (Duoneb -) 1 amp NEB RQID [facility] Last Admin: 05/10/19 11:55 Dose: 1 amp Documented by: Budesonide/Formoterol Fumarate (Symbicort 160/4.5mcg -) 2 puff IH BID [facility] Last Admin: 05/10/19 11:13 Dose: 2 puff Documented by: Heparin Sodium (Porcine) (Heparin -) 5,000 unit SQ BID [facility] Last Admin: 05/10/19 11:12 Dose: Not Given Documented by: Insulin Aspart (Novolog Vial Sliding Scale -) 1 vial SQ [facility]; Protocol Last Admin: 05/10/19 11:16 Dose: Not Given Documented by: Melatonin (Melatonin) 5 mg PO HS PRN PRN Reason: INSOMNIA Last Admin: 05/09/19 23:36 Dose: 5 mg Documented by: Methadone HCl 40 mg/ Methadone (HCl 20 mg) 60 mg PO DAILY@0600 [facility] Last Admin: 05/10/19 11:12 Dose: Not Given Documented by: Methylprednisolone Sodium Succinate (Solu-Medrol -) 40 mg IVPUSH Q8H-IV [facility] Last Admin: 05/10/19 11:12 Dose: 40 mg Documented by: Nicotine (Nicoderm Patch -) 14 mg TD DAILY [facility] Last Admin: 05/10/19 11:12 Dose: 14 mg Documented by: Pantoprazole Sodium (Protonix Iv) 40 mg IVPUSH DAILY [facility] Last Admin: 05/10/19 11:16 Dose: 40 mg Documented by: - Objective Vital Signs: Vital Signs Temperature 98 F 05/10/19 11:49 Pulse Rate 78 05/10/19 11:49 Respiratory Rate 18 05/10/19 11:49 Blood Pressure 138/74 05/10/19 11:49 O2 Sat by Pulse Oximetry (%) 94 L 05/10/19 11:49 General: Well developed. Well nourished. No acute distress. Head: Normocephalic. Atraumatic, Eyes: PERRLA, EOMI. Sclerae anicteric. Conjunctivae clear. Neck: Supple. No JVD. No bruits. Heart: Normal S1, S2: Regular rhythm and rate. No murmur. No gallop or rub. Lungs: Symmetrical air entry. Clear to auscultation. No crackles. No wheezing or rhonchi. Abdomen: Soft. Bowel sound positive. Non tender. No masses. Extremities: No edema. No clubbing or cyanosis. PD 2+, equal bilaterally. Neuro: Intact, no focal findings. AAO X3. Labs: CBC, BMP 05/10/19 06:33 05/10/19 06:33 Assessment/Plan 64 year-old man, smoker, with a PMHx of DM, IV heroin abuse, Hep C, s/p tricuspid valve replacement, admitted 05/09/19 with chest pain and SOB. Patient reports progressive SOB and intermittent chest pain for 3 weeks. His chest pain is predominantly exertional, also happens at rest. His exercise tolerance decreased markedly. He reports having intermittent lightheadedness at rest and with exertion. No palpitation, syncope or near syncope. ECG: sinus rhythm. RBBB. Inferior non specific T wave abnormalities. No evidence of AK. CXR 05/09/19 showed cardiomegaly. CTA of chest pain revealed no PE. Emphysema noted. Echo 05/10/19 showed normal LV size with moderate LV systolic dysfunction. LVEF 35-40%. Normal RV. Normal LA and RA. Normal MV and AV. Bio-TV with normal function. Cardiac cath is scheduled for tomorrow at [facility]. 1) Angina pectoris: New onset and progressive - unstable angina. No evidence of AK or acute ECG changes. Patient refuses Regadenoson nuclear stress test and prefers to cardiac cath. Cardiac cath is scheduled for tomorrow at [facility]. Please keep the patient NPO after midnight. 2) Dyspnea: COPD exacerbation and CHF. No physical signs of fluid overload now. Dr. Beltran's pulmonary evaluation appreciated.
[2019-05-10] MEDS: MELATONIN 5 MG TABLETS PO PRN (21:16)
[2019-05-11] MEDS: methylPREDNISolone NA SUCC 40 MG/1 ML VIAL IVPUSH SCH (02:59)
[2019-05-11] MEDS: METHADONE 40 MG, METHADONE 20 MG PO SCH (05:33)
[2019-05-11 06:52] VITALS: BP 132/77; PULSE 71; TEMP 98.1
== END 2019-05-11 06:00 | disposition short-term general hospital (02) ==
LOC: JER 19:31 → JERBED 05-09 00:54 → J4W 05-09 13:58
PROVIDERS: ADMIT Family Medicine; ATTEND Family Medicine
PROC: 3E0333Z Introduction of Anti-inflammatory into Peripheral Vein, Percutaneous Approach (ICD-10-PCS; principal; 2019-05-09)
PROC: 3E033GC Introduction of Other Therapeutic Substance into Peripheral Vein, Percutaneous Approach (ICD-10-PCS; 2019-05-09)
PROC: 3E0F7GC Introduction of Other Therapeutic Substance into Respiratory Tract, Via Natural or Artificial Opening (ICD-10-PCS; 2019-05-09)
DX: J44.1 Chronic obstructive pulmonary disease with (acute) exacerbation (principal); J96.91 Respiratory failure, unspecified with hypoxia; R06.02 Shortness of breath; R07.89 Other chest pain; E13.9 Other specified diabetes mellitus without complications; F11.11 Opioid abuse, in remission; B19.20 Unspecified viral hepatitis C without hepatic coma; F17.210 Nicotine dependence, cigarettes, uncomplicated; J44.9 Chronic obstructive pulmonary disease, unspecified; Z95.3 Presence of xenogenic heart valve; Z88.0 Allergy status to penicillin; Z79.84 Long term (current) use of oral hypoglycemic drugs; I45.10 Unspecified right bundle-branch block; I20.8 Other forms of angina pectoris
CPT/HCPCS: 36415; 71046-TC-FY; 71275-TC; 80053; 80307; 81003; 82550; 82962; 83036; 83735; 83880; 84443; 84484; 85025; 93005; 93010; 93306-TC; 94150; 94640; 96365; 96375; 96376; 99285-25; G0378; J1644; Q9967

== ENCOUNTER 2019-10-21 05:36 | Emergency (ER) | payer OTHER ==
[2019-10-21 05:54] VITALS: TEMP 98.3; BMI 29.5
[2019-10-21] MEDS ORDERED: FAMOTIDINE 20 MG/50 ML IVPB 20 MG/50 ML MG IVPB ONE ×2 (05:57→06:19)
[2019-10-21] MEDS ORDERED: ALBUTEROL SO4 2.5/IPRATROPIUM 0.5 INH SOL 3 ML VIAL.NEB. NEB ONE ×2 (05:57→06:18)
[2019-10-21] MEDS ORDERED: MAG HYDROX/AL HYDROX/SIMETH 30 ML UNIT-DOSE CUP PO ONE (05:57)
[2019-10-21] MEDS ORDERED: ACETAMINOPHEN 1000 MG/100 ML VIAL (NON FORMULARY) IVPB ONE (05:57)
[2019-10-21 06:15] LABS: BASO % 0.7 % (0-2.0); EOS % 0.4 % (0-4.5); HEMATOCRIT 42.6 % (35.4-49); HEMOGLOBIN 13.8 GM/dL (11.7-16.9); LYMPH % 14.8 % (8-40); MCH 29.8 pg (25.7-33.7); MCHC 32.5 g/dl (32.0-35.9); MEAN CELL VOLUME 91.7 fl (80-96); MEAN PLT VOLUME 9.7 fl (7.5-11.1); MONO % 10.4 % (3.8-10.2); NEUT % 73.7 % (42.8-82.8); PLATELET COUNT 178 K/MM3 (134-434); RBC 4.64 M/mm3 (4.00-5.60); RDW 12.9 % (11.9-15.9)
[2019-10-21] MEDS ORDERED: ACETAMINOPHEN INJECTION 100 ML IVPB ONE (06:18)
[2019-10-21] MEDS ORDERED: MAG HYDROX/AL HYDROX/SIMETH 30 ML UNIT-DOSE CUP ONE (06:19)
--- NOTE | 2019-10-21 06:31 | PDOC ---
History of Present Illness - General Chief Complaint: Pain, Acute Stated Complaint: STOMACH PAIN/DISTENTION Time Seen by Provider: 10/21/19 06:29 Past History - Medical History Allergies/Adverse Reactions: Allergies Allergy/AdvReac Type Severity Reaction Status Date / Time Penicillins Allergy Verified 05/08/19 19:37 Home Medications: Ambulatory Orders Albuterol 0.083% Nebulizer Anastasia [Ventolin 0.083% Nebulizer Soln -] 1 amp NEB PRN PRN 05/09/19 Famotidine 20 mg PO DAILY 05/09/19 Methadone [Dolophine -] 60 mg PO DAILY 05/09/19 Sitagliptin Phosphate [Januvia -] 50 mg PO DAILY 05/09/19 Albuterol 0.083% Nebulizer Anastasia [Ventolin 0.083% Nebulizer Soln -] 1 amp NEB Q4H PRN amp 05/10/19 Albuterol 2.5/Ipratropium 0.5 [Duoneb -] 1 amp NEB RQID amp 05/10/19 Budesonide/Formeterol Fumarate [SYMBICORT 160/4.5mcg -] 2 puff IH BID inhaler 05/10/19 Heparin - 5,000 unit SQ BID vial 05/10/19 Insulin Sliding Scale [Novolog Vial Sliding Scale -] 1 vial SQ ACHS units 05/10/19 Melatonin 5 mg PO HS PRN tab 05/10/19 Methadone [Dolophine -] 60 mg PO DAILY@0600 tablet 05/10/19 Methadone [Dolophine -] 60 mg PO DAILY@0600 tablet 05/10/19 Methylprednisolone Na Succ [Solu-Medrol -] 40 mg IVPUSH Q8H-IV vial 05/10/19 Nicotine Patch [Nicoderm Patch -] 14 mg TD DAILY patch 05/10/19 Pantoprazole Sodium [Protonix IV] 40 mg IVPUSH DAILY vial 05/10/19 Buspirone HCl [Buspar -] 15 mg PO BID #60 tablet 07/11/19 Sertraline HCl [Zoloft -] 50 mg PO DAILY #30 tablet 07/11/19 Buspirone HCl [Buspar -] 15 mg PO BID #60 tablet 09/05/19 Sertraline HCl [Zoloft -] 50 mg PO DAILY #30 tablet 09/05/19 Asthma: Yes Cancer: No Cardiac Disorders: Yes (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 [facility]) CVA: No COPD: Yes CHF: No Diabetes: Yes HTN: No Hypercholesterolemia: No Seizures: No Thyroid Disease: No - Surgical History Cardiac Surgery: Yes (PIG valve mitral 4 years ago) Orthopedic Surgery: Yes (Spinal fusion L2 L3) - Psycho-Social/Smoking History Smoking History: Unknown if ever smoked Have you smoked in the past 12 months: Yes Number of Cigarettes Smoked Daily: 5 'Breaking Loose' booklet given: 05/09/19 - Substance Abuse Hx (Audit-C & DAST Scrn) In the last yr the pt used illegal drug/Rx for NonMed reason: Yes Score: Yes response is considered Positive: 1 Screen Result (Positive result requires Nsg. DAST-10): Positive *Physical Exam - Vital Signs Last Vital Signs Temp Pulse Resp BP Pulse Ox 98.3 F 75 19 160/101 H 95 10/21/19 05:48 10/21/19 05:48 10/21/19 05:48 10/21/19 05:48 10/21/19 05:48 ED Treatment Course - LABORATORY CBC & Chemistry Diagram: 10/21/19 05:50 10/21/19 05:50 - ADDITIONAL ORDERS Additional order review: 10/21/19 05:50 RBC 4.64 MCV 91.7 MCHC 32.5 RDW 12.9 MPV 9.7 Neutrophils % 73.7 Lymphocytes % 14.8 D Monocytes % 10.4 H D Eosinophils % 0.4 D Basophils % 0.7 D - Medications Given in the ED: ED Medications Discontinued Medications Generic Name Dose Route Start Last Admin Trade Name Flex PRN Reason Stop Dose Admin Acetaminophen 1,000 mg 10/21/19 05:57 10/21/19 06:28 Ofirmev Injection - IVPB 10/21/19 05:58 1,000 mg ONCE ONE Administration Al Hydroxide/Mg Hydroxide 30 ml 10/21/19 05:57 10/21/19 06:27 Mylanta Oral Suspension - PO 10/21/19 05:58 30 ml ONCE ONE Administration Albuterol/Ipratropium 3 amp 10/21/19 05:57 10/21/19 06:27 Duoneb - NEB 10/21/19 05:58 3 amp ONCE ONE Administration Famotidine/Sodium Chloride 20 mg in 50 mls @ 100 mls/hr 10/21/19 05:57 10/21/19 06:28 Pepcid 20 Mg Premixed Ivpb - IVPB 10/21/19 06:26 100 mls/hr ONCE ONE Administration Discharge - Follow up/Referral Referrals: Alli Ayers [Primary Care Provider] - - Patient Discharge Instructions - Post Discharge Activity
[2019-10-21 06:33] LABS: INR 0.97 (0.83-1.09); PROTHROMBIN TIME (PATIENT) 11.4 SEC (9.7-13.0)
--- NOTE | 2019-10-21 06:34 | PDOC ---
Attending Attestation - Resident Resident Name: Paul Stevenson - ED Attending Attestation I have performed the following: I have examined & evaluated the patient, The case was reviewed & discussed with the resident, I agree w/resident's findings & plan, Exceptions are as noted - HPI HPI: 10/21/19 06:32 64 M with h/o DM, IV heroin abuse, Hep C, s/p tricuspid valve replacement, presenting to ED with abdominal pain and SOB. Pt notes several days of epigastric abdominal pain. Worse with bending over. Denies N/V/D. Denies F/C. Also reporting SOB. Denies any new leg swelling. - Physicial Exam PE: 10/21/19 06:33 See resident exam - Medical Decision Making 10/21/19 06:33 64 M with SOB and abdominal pain. Wheezing on exam, suspect asthma/COPD flare. Also tender in the RUQ. Will evaluate for gallbladder/liver pathology. - Labs - US - CXR - Nebs, steroids Discharge - Discharge Information Problems reviewed: Yes Clinical Impression/Diagnosis: COPD with acute exacerbation, SOB (shortness of breath) Abdominal pain Qualifiers: Abdominal location: epigastric Qualified Code(s): R10.13 - Epigastric pain Condition: Stable Disposition: HOME - Follow up/Referral Referrals: Alli Ayers [Primary Care Provider] - Xiomara Love MD [Staff Physician] - Martinez Ross MD [Staff Physician] - - Patient Discharge Instructions Patient Printed Discharge Instructions: DI for Abdominal Pain-Adult, GERD Diet Additional Instructions: You were seen in the Emergency Department for evaluation of abdominal pain and nausea. Your symptoms are likely related to stomach inflammation. Review the handouts provided at discharge. Gastroenterology follow up was provided, follow up with them within a month. Follow up with your primary care provider. Bananas, Apples, Rice, and [place] (BRAT) diets may be beneficial to alleviating your symptoms. Avoid heavily flavored foods and spicy foods. Start with water/gatorade sips and advance as tolerated. If you try to incorporate solids and vomit, go back to liquids and try advancing slowly again over several hours. Return to the Emergency Department if you develop fevers/chills, chest pain, trouble breathing, inability to tolerate fluids, blood in your stool/vomit, worsening pain, worsening symptoms, or any new/concerning symptoms. - Post Discharge Activity
--- NOTE | 2019-10-21 06:43 | PDOC ---
History of Present Illness - General Chief Complaint: Pain, Acute Stated Complaint: STOMACH PAIN/DISTENTION Time Seen by Provider: 10/21/19 06:29 History Source: Patient Exam Limitations: No Limitations - History of Present Illness Initial Comments: 10/21/19 06:32 64 yo M with a hx of HTN, DM, HLD, Hep C, Hx of IVDA, and asthma presents to the emergency department with abdominal pain. Per the patient, the pain has been ongoing in the epigastric for the past 2 months with worsening over night. The pain is described as sharp, non radiating, worsens with movement (flexion of the abdomen). Denies fevers, chills, nausea, vomiting, chest pain, SOB, dysuria, hematuria, diarrhea, melena, hematochezia, and leg pain/swelling. 10/21/19 07:03 Past History - Medical History Allergies/Adverse Reactions: Allergies Allergy/AdvReac Type Severity Reaction Status Date / Time Penicillins Allergy Verified 10/21/19 16:22 Home Medications: Ambulatory Orders Budesonide/Formeterol Fumarate [SYMBICORT 160/4.5mcg -] 2 puff IH BID inhaler 05/10/19 Methadone [Dolophine -] 60 mg PO DAILY@0600 tablet 05/10/19 Aspirin [Aspirin EC] 81 mg PO DAILY 10/21/19 Albuterol Sulfate Inhaler - [Ventolin HFA Inhaler -] 2 puff IH Q4H PRN #1 inhaler 10/25/19 Albuterol Sulfate Inhaler - [Ventolin HFA Inhaler -] 2 puff IH RQID inhaler 10/25/19 Furosemide [Lasix -] 40 mg PO DAILY #30 tablet 10/25/19 Methadone [Dolophine -] 60 mg PO DAILY@0600 tablet 10/25/19 Methadone [Dolophine -] 60 mg PO DAILY@0600 tablet 10/25/19 Pantoprazole Sodium [Protonix -] 40 mg PO DAILY #30 tablet.ec 10/25/19 Prednisone See Taper PO ASDIR #42 tablet 10/25/19 Rosuvastatin [Crestor -] 5 mg PO HS #30 tablet 10/25/19 Sertraline HCl [Zoloft -] 50 mg PO DAILY #30 tablet 10/25/19 Sitagliptin Phosphate [Januvia -] 50 mg PO DAILY #30 tablet 10/25/19 Spironolactone [Aldactone -] 25 mg PO BID #60 tablet 10/25/19 Zolpidem Tartrate [Ambien] 5 mg PO HS PRN tablet 10/25/19 Asthma: Yes Cancer: No Cardiac Disorders: Yes (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 4 years ago [facility]) CVA: No COPD: Yes CHF: No Diabetes: Yes HTN: No Hypercholesterolemia: No Seizures: No Thyroid Disease: No - Surgical History Cardiac Surgery: Yes (PIG valve mitral 4 years ago) Orthopedic Surgery: Yes (Spinal fusion L2 L3) - Psycho-Social/Smoking History Smoking History: Unknown if ever smoked Have you smoked in the past 12 months: Yes Number of Cigarettes Smoked Daily: 5 'Breaking Loose' booklet given: 05/09/19 - Substance Abuse Hx (Audit-C & DAST Scrn) In the last yr the pt used illegal drug/Rx for NonMed reason: Yes Score: Yes response is considered Positive: 1 Screen Result (Positive result requires Nsg. DAST-10): Positive Review of Systems - Review of Systems Able to Perform ROS?: Yes Is the patient limited Polish proficient: No Constitutional: No: Chills, Diaphoresis, Fever HEENTM: No: Eye Pain, Ear Pain, Nose Pain, Throat Pain Respiratory: No: Cough, Shortness of Breath Cardiac (ROS): No: Chest Pain, Palpitations ABD/GI: Yes: Abdominal cramping. No: Constipated, Diarrhea, Nausea, Vomiting : No: Burning, Dysuria, Hematuria Musculoskeletal: No: Back Pain Integumentary: No: Erythema Neurological: No: Headache Psychiatric: No: Change in Appetite Endocrine: No: Unexplained Weight Loss Hematologic/Lymphatic: No: Anemia *Physical Exam - Vital Signs Last Vital Signs Temp Pulse Resp BP Pulse Ox 98.3 F 75 19 160/101 H 95 10/21/19 05:48 10/21/19 05:48 10/21/19 05:48 10/21/19 05:48 10/21/19 05:48 - Physical Exam General Appearance: Yes: Nourished, Appropriately Dressed. No: Apparent Distress, Intoxicated HEENT: positive: EOMI, SHAHEEN, Normal Voice, Symmetrical, Pharynx Normal. negative: Pale Conjunctivae, Scleral Icterus (R), Scleral Icterus (L), Muffled/Hoarse voice, Pharyngeal Erythema, Tonsillar Exudate, Tonsillar Erythema Neck: positive: Trachea midline, Supple. negative: Tender, Lymphadenopathy (R), Lymphadenopathy (L) Respiratory/Chest: positive: Lungs Clear, Normal Breath Sounds. negative: Chest Tender, Respiratory Distress, Accessory Muscle Use Cardiovascular: positive: Regular Rhythm, Regular Rate, S1, S2. negative: Systolic Murmur Gastrointestinal/Abdominal: positive: Normal Bowel Sounds, Tender (epigastric region), Flat, Soft. negative: Distended, Guarding, Rebound Lymphatic: negative: Adenopathy Musculoskeletal: positive: Normal Inspection. negative: CVA Tenderness, Vertebral Tenderness Extremity: positive: Normal Capillary Refill, Normal Inspection, Normal Range of Motion. negative: Tender Integumentary: positive: Normal Color, Dry, Warm Neurologic: positive: Fully Oriented, Alert, Normal Mood/Affect ED Treatment Course - LABORATORY CBC & Chemistry Diagram: 10/21/19 05:50 10/21/19 05:50 - ADDITIONAL ORDERS Additional order review: 10/21/19 05:50 RBC 4.64 MCV 91.7 MCHC 32.5 RDW 12.9 MPV 9.7 Neutrophils % 73.7 Lymphocytes % 14.8 D Monocytes % 10.4 H D Eosinophils % 0.4 D Basophils % 0.7 D - RADIOLOGY Radiology Studies Ordered: Category Date Time Status CHEST X-RAY PORTABLE* [RAD] Stat Radiology 10/21/19 05:57 Ordered ABDOMEN US -LIMITED [US] Stat Ultrasound 10/21/19 05:59 Ordered - Medications Given in the ED: ED Medications Discontinued Medications Generic Name Dose Route Start Last Admin Trade Name Flex PRN Reason Stop Dose Admin Acetaminophen 1,000 mg 10/21/19 05:57 10/21/19 06:28 Ofirmev Injection - IVPB 10/21/19 05:58 1,000 mg ONCE ONE Administration Al Hydroxide/Mg Hydroxide 30 ml 10/21/19 05:57 10/21/19 06:27 Mylanta Oral Suspension - PO 10/21/19 05:58 30 ml ONCE ONE Administration Albuterol/Ipratropium 3 amp 10/21/19 05:57 10/21/19 06:27 Duoneb - NEB 10/21/19 05:58 3 amp ONCE ONE Administration Famotidine/Sodium Chloride 20 mg in 50 mls @ 100 mls/hr 10/21/19 05:57 10/21/19 06:28 Pepcid 20 Mg Premixed Ivpb - IVPB 10/21/19 06:26 100 mls/hr ONCE ONE Administration Medical Decision Making - Medical Decision Making 64 yo M with a hx of HTN, DM, HLD, Hep C, Hx of IVDA, and asthma presents to the emergency department with abdominal pain. Per the patient, the pain has been ongoing in the epigastric for the past 2 months with worsening over night. Initial vitals: Initial Vital Signs Temp Pulse Resp BP Pulse Ox 98.3 F 75 19 160/101 H 95 10/21/19 05:48 10/21/19 05:48 10/21/19 05:48 10/21/19 05:48 10/21/19 05:48 Work up: patient presents with epigastric pain that worsens at night that has been ongoing for 2 months,. ddx: gastritis vs GERD vs acs vs pericarditis vs pna vs pleuritis vs pericarditis Laboratory Tests 10/21/19 10/21/19 10/21/19 05:50 05:50 05:50 WBC 12.0 H RBC 4.64 Hgb 13.8 Hct 42.6 MCV 91.7 MCH 29.8 MCHC 32.5 RDW 12.9 Plt Count 178 D MPV 9.7 Absolute Neuts (auto) 8.9 H Neutrophils % 73.7 Lymphocytes % 14.8 D Monocytes % 10.4 H D Eosinophils % 0.4 D Basophils % 0.7 D Nucleated RBC % 0 PT with INR 11.40 INR 0.97 Sodium 140 Potassium 4.5 Chloride 98 Carbon Dioxide 35 H Anion Gap 7 L BUN 18.4 H Creatinine 1.0 Est GFR (CKD-EPI)AfAm 91.78 Est GFR (CKD-EPI)NonAf 79.19 Random Glucose 113 H Calcium 9.1 Magnesium 2.1 Total Bilirubin 0.4 AST 24 ALT 22 Alkaline Phosphatase 107 Creatine Kinase 51 Troponin I 0.03 Total Protein 7.2 Albumin 3.6 Lipase 45 L patient has a pending US to be signed out to day team lipase negative - unlikely to be pancreatitis. cxr negative for acute process ekg shows twi and rbbb. no st elevations or depressions. patient has pending US Patient signed out Discharge - Discharge Information Problems reviewed: Yes Clinical Impression/Diagnosis: COPD with acute exacerbation, SOB (shortness of breath) Abdominal pain Qualifiers: Abdominal location: epigastric Qualified Code(s): R10.13 - Epigastric pain - Follow up/Referral Referrals: Alli Ayers [Primary Care Provider] - Xiomara Love MD [Staff Physician] - Martinez Ross MD [Staff Physician] - - Patient Discharge Instructions Patient Printed Discharge Instructions: DI for Abdominal Pain-Adult, GERD Diet Additional Instructions: You were seen in the Emergency Department for evaluation of abdominal pain and nausea. Your symptoms are likely related to stomach inflammation. Review the handouts provided at discharge. Gastroenterology follow up was provided, follow up with them within a month. Follow up with your primary care provider. Bananas, Apples, Rice, and [place] (BRAT) diets may be beneficial to alleviating your symptoms. Avoid heavily flavored foods and spicy foods. Start with water/gatorade sips and advance as tolerated. If you try to incorporate solids and vomit, go back to liquids and try advancing slowly again over several hours. Return to the Emergency Department if you develop fevers/chills, chest pain, trouble breathing, inability to tolerate fluids, blood in your stool/vomit, worsening pain, worsening symptoms, or any new/concerning symptoms. - Post Discharge Activity
[2019-10-21 06:45] LABS: ALBUMIN 3.6 g/dl (3.4-5.0); BILIRUBIN,TOTAL 0.4 mg/dL (0.2-1); BLOOD UREA NITROGEN 18.4 mg/dL (7-18); CALCIUM 9.1 mg/dL (8.5-10.1); MAGNESIUM 2.1 mg/dL (1.8-2.4); POTASSIUM 4.5 mmol/L (3.5-5.1); TOT PROT 7.2 g/dl (6.4-8.2)
--- NOTE | 2019-10-21 08:47 | PDOC ---
*Physical Exam - Vital Signs Last Vital Signs Temp Pulse Resp BP Pulse Ox 98.3 F 71 18 144/78 97 10/21/19 05:48 10/21/19 07:51 10/21/19 07:51 10/21/19 07:51 10/21/19 07:51 ED Treatment Course - LABORATORY CBC & Chemistry Diagram: 10/21/19 05:50 10/21/19 05:50 - ADDITIONAL ORDERS Additional order review: Laboratory Results 10/21/19 10/21/19 05:50 05:50 PT with INR 11.40 INR 0.97 Sodium 140 Potassium 4.5 Chloride 98 Carbon Dioxide 35 H Anion Gap 7 L BUN 18.4 H Creatinine 1.0 Est GFR (CKD-EPI)AfAm 91.78 Est GFR (CKD-EPI)NonAf 79.19 Random Glucose 113 H Calcium 9.1 Magnesium 2.1 Total Bilirubin 0.4 AST 24 ALT 22 Alkaline Phosphatase 107 Creatine Kinase 51 Troponin I 0.03 Total Protein 7.2 Albumin 3.6 Lipase 45 L 10/21/19 05:50 RBC 4.64 MCV 91.7 MCHC 32.5 RDW 12.9 MPV 9.7 Neutrophils % 73.7 Lymphocytes % 14.8 D Monocytes % 10.4 H D Eosinophils % 0.4 D Basophils % 0.7 D - Medications Given in the ED: ED Medications Discontinued Medications Generic Name Dose Route Start Last Admin Trade Name Flex PRN Reason Stop Dose Admin Acetaminophen 1,000 mg 10/21/19 05:57 10/21/19 06:28 Ofirmev Injection - IVPB 10/21/19 05:58 1,000 mg ONCE ONE Administration Al Hydroxide/Mg Hydroxide 30 ml 10/21/19 05:57 10/21/19 06:27 Mylanta Oral Suspension - PO 10/21/19 05:58 30 ml ONCE ONE Administration Albuterol/Ipratropium 3 amp 10/21/19 05:57 10/21/19 06:27 Duoneb - NEB 10/21/19 05:58 3 amp ONCE ONE Administration Famotidine/Sodium Chloride 20 mg in 50 mls @ 100 mls/hr 10/21/19 05:57 10/21/19 06:28 Pepcid 20 Mg Premixed Ivpb - IVPB 10/21/19 06:26 100 mls/hr ONCE ONE Administration Medical Decision Making - Medical Decision Making Pt received as sign out Pt pending US, XR Lipase neg for evidence of pancreatitis Labs overall unremarkable No anemia Lytes overall unremarkable No TOMASA Trop I neg LFTs unremarkable Plan for D/C w/ PCP/GI f/u Discharge instructions and return precautions given Patient in agreement and verbalized understanding Dispo: Home 10/21/19 08:44 Discharge - Discharge Information Problems reviewed: Yes Clinical Impression/Diagnosis: Abdominal pain Qualifiers: Abdominal location: epigastric Qualified Code(s): R10.13 - Epigastric pain Condition: Stable Disposition: HOME - Admission No - Follow up/Referral Referrals: Alli Ayers [Primary Care Provider] - Martinez Ross MD [Staff Physician] - Xiomara Love MD [Staff Physician] - - Patient Discharge Instructions Patient Printed Discharge Instructions: DI for Abdominal Pain-Adult, GERD Diet Additional Instructions: You were seen in the Emergency Department for evaluation of abdominal pain and nausea. Your symptoms are likely related to stomach inflammation. Review the handouts provided at discharge. Gastroenterology follow up was provided, follow up with them within a month. Follow up with your primary care provider. Bananas, Apples, Rice, and [place] (BRAT) diets may be beneficial to alleviating your symptoms. Avoid heavily flavored foods and spicy foods. Start with water/gatorade sips and advance as tolerated. If you try to incorporate solids and vomit, go back to liquids and try advancing slowly again over several hours. Return to the Emergency Department if you develop fevers/chills, chest pain, trouble breathing, inability to tolerate fluids, blood in your stool/vomit, worsening pain, worsening symptoms, or any new/concerning symptoms. - Post Discharge Activity
[2019-10-21 10:59] VITALS: BP 138/72; PULSE 69
--- NOTE | 2019-10-21 17:59 | EKG ---
Test Reason : Blood Pressure : / mmHG Vent. Rate : 063 BPM Atrial Rate : 063 BPM P-R Int : 158 ms QRS Dur : 150 ms QT Int : 434 ms P-R-T Axes : 047 030 -15 degrees QTc Int : 444 ms NORMAL SINUS RHYTHM RIGHT BUNDLE BRANCH BLOCK T WAVE ABNORMALITY, CONSIDER LATERAL ISCHEMIA ABNORMAL ECG Confirmed by MD ALEENA, JERMAINE ([id number]) on 10/21/2019 5:59:38 PM Referred By: Confirmed By:JERMAINE FLOOD MD
== END 2019-10-21 11:08 | disposition home or self-care (01) ==
LOC: JER 05:36
PROC: 3E0F7GC Introduction of Other Therapeutic Substance into Respiratory Tract, Via Natural or Artificial Opening (ICD-10-PCS; principal; 2019-10-21)
PROC: 3E0333Z Introduction of Anti-inflammatory into Peripheral Vein, Percutaneous Approach (ICD-10-PCS; 2019-10-21)
PROC: 3E033GC Introduction of Other Therapeutic Substance into Peripheral Vein, Percutaneous Approach (ICD-10-PCS; 2019-10-21)
DX: J44.1 Chronic obstructive pulmonary disease with (acute) exacerbation (principal); R06.02 Shortness of breath; R10.13 Epigastric pain
CPT/HCPCS: 36415; 71045-TC-FY; 76705-TC; 80053; 82550; 83690; 83735; 84484; 85025; 85610; 93005; 93010; 99285-25; J0131

== ENCOUNTER 2019-10-21 16:03 | Inpatient (IN) | payer OTHER ==
[2019-10-21 16:22] VITALS: BMI 29.3
--- NOTE | 2019-10-21 16:52 | PDOC ---
Attending Attestation - Resident Resident Name: Vargas Cedillo - ED Attending Attestation I have performed the following: I have examined & evaluated the patient, The case was reviewed & discussed with the resident, I agree w/resident's findings & plan - HPI HPI: 10/21/19 21:41 see resident hpi - Physicial Exam PE: 10/21/19 21:41 see resident exam - Medical Decision Making 10/21/19 21:41 64-year-old male with history of valve replacement secondary to endocarditis in the past now complaining of substernal/epigastric pain recently DC'd in the morning now with worsening symptoms after eating CTA of the chest abdomen and pelvis shows no significant acute abnormality, of note there are coronary artery calcifications noted Patient labs also suggestive of mild CHF EKG shows no acute ST segment abnormalities Patient is feeling better at this time though in light of patient's age and history will hold for serial troponins and observation Discharge - Discharge Information Problems reviewed: Yes Clinical Impression/Diagnosis: Substernal chest pain, CHF (congestive heart failure) Condition: Fair - Follow up/Referral Referrals: Alli Ayers [Primary Care Provider] - - Patient Discharge Instructions - Post Discharge Activity
[2019-10-21] MEDS ORDERED: ALBUTEROL SO4 HFA INHALER IH ONE ×2 (17:16→17:56)
--- NOTE | 2019-10-21 17:16 | PDOC ---
History of Present Illness - General Chief Complaint: Pain Stated Complaint: ABDOMINAL PAIN Time Seen by Provider: 10/21/19 16:48 - History of Present Illness Initial Comments: 10/21/19 17:14 64 yo M with a hx of HTN, DM, HLD, Hep C, Hx of IVDA, and COPD, as well as a PSH of biprosthetic tricuspid valve for endocarditis, umbilical hernia repair, and spine surgery, presents to the emergency department with worsening abdominal pain after being discharged this morning for with abdominal pain. Per the patient, the pain has been ongoing in the epigastric for the past 2 months with worsening over night. The pain is described as sharp, non radiating, worsens with movement (flexion of the abdomen). Endorses nausea, which he did not at last ED visit. Normal BM and passing gas. Denies fevers, chills, vomiting. Also endorses SOB which he attributes to his COPD. No change in exercise tolerance. No orthopnea. No leg swelling. PMH/PSH: as above Home Medication List Medication Instructions Recorded Confirmed Type Albuterol 0.083% Nebulizer Anastasia 1 amp NEB PRN PRN 05/09/19 05/09/19 History [Ventolin 0.083% Nebulizer Soln -] Famotidine 20 mg PO DAILY 05/09/19 05/09/19 History Methadone [Dolophine -] 60 mg PO DAILY 05/09/19 05/09/19 History Sitagliptin Phosphate [Januvia -] 50 mg PO DAILY 05/09/19 05/09/19 History Allergies Allergy/AdvReac Type Severity Reaction Status Date / Time Penicillins Allergy Verified 10/21/19 16:22 ROS GENERAL/CONSTITUTIONAL: No fever or chills. No weakness. HEAD, EYES, EARS, NOSE AND THROAT: No change in vision. No ear pain or discharge. No sore throat. CARDIOVASCULAR: No chest pain. + shortness of breath RESPIRATORY: No cough, wheezing, or hemoptysis. GASTROINTESTINAL: +nausea and epigastric pain. No vomiting, diarrhea or constipation. GENITOURINARY: No dysuria, frequency, or change in urination. MUSCULOSKELETAL: No joint or muscle swelling or pain. No neck or back pain. SKIN: No rash NEUROLOGIC: No headache, vertigo, loss of consciousness, or change in strength/sensation. ENDOCRINE: No increased thirst. No abnormal weight change HEMATOLOGIC/LYMPHATIC: No anemia, easy bleeding, or history of blood clots. ALLERGIC/IMMUNOLOGIC: No hives or skin allergy. PE GENERAL: Awake, alert, and fully oriented, in no acute distress HEAD: No signs of trauma, normocephalic, atraumatic EYES: PERRLA, EOMI, sclera anicteric, conjunctiva clear ENT: Auricles normal inspection, hearing grossly normal, nares patent, oropharynx clear without exudates. Moist mucosa NECK: Normal ROM, supple, no lymphadenopathy, JVD, or masses LUNGS: No distress, speaks full sentences, expiratory wheezing in all lung reddy HEART: Regular rate and rhythm, normal S1 and S2, no murmurs, rubs or gallops, peripheral pulses normal and equal bilaterally. ABDOMEN: Periumbilical and epigastric tenderness with guarding. Normoactive bowel sounds. EXTREMITIES : Normal inspection, Normal range of motion, no edema. No clubbing or cyanosis. NEUROLOGICAL: Cranial nerves II through XII grossly intact. Normal speech no focal sensorimotor deficits SKIN: Warm, Dry, normal turgor, no rashes or lesions noted MDM 64 yo M with a hx of HTN, DM, HLD, Hep C, Hx of IVDA, and COPD, as well as a PSH of biprosthetic tricuspid valve for endocarditis, umbilical hernia repair, and spine surgery, presents to the emergency department with worsening abdominal pain after being discharged this morning for with abdominal pain. Also endorsed SOB and nausea. PE notable for expiratory wheezing in all lung reddy and periumbilical and epigastric tenderness with guarding. ED workup yesterday nota ble for unremarkable CBC, CMP, trops, lipase, coags, CXR and normal RUQ U/S with the exception of borderline CBD diameter. Given cardiac history, differential includes aortic dissection and AAA. Differential also includes ACS, bowel obstruction, mesenteric ischemia. Differential for SOB/wheezing includes COPD and asthmatic CHF. -EKG: NSR, RBBB seen on prior EKG from 05/08/2019 -CT C/A/P dissection protocol also with oral contrast to eval dissection, AAA, and abdominal pathology -CBC, CMP, lactic, lipase, BNP, troponin -albuterol inhaler Dispo pending labs and imaging Signed out to night team. 10/21/19 19:00 Past History - Medical History Allergies/Adverse Reactions: Allergies Allergy/AdvReac Type Severity Reaction Status Date / Time Penicillins Allergy Verified 10/21/19 16:22 Home Medications: Ambulatory Orders Sitagliptin Phosphate [Januvia -] 50 mg PO DAILY 05/09/19 Albuterol 0.083% Nebulizer Anastasia [Ventolin 0.083% Nebulizer Soln -] 1 amp NEB Q4H PRN amp 05/10/19 Budesonide/Formeterol Fumarate [SYMBICORT 160/4.5mcg -] 2 puff IH BID inhaler 05/10/19 Methadone [Dolophine -] 60 mg PO DAILY@0600 tablet 05/10/19 Sertraline HCl [Zoloft -] 50 mg PO DAILY #30 tablet 07/11/19 Aspirin [Aspirin EC] 81 mg PO DAILY 10/21/19 Omeprazole 20 mg PO DAILY 10/21/19 Asthma: Yes Cancer: No Cardiac Disorders: Yes (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 4 years ago [facility]) CVA: No COPD: Yes CHF: No Diabetes: Yes HTN: No Hypercholesterolemia: No Seizures: No Thyroid Disease: No - Surgical History Cardiac Surgery: Yes (PIG valve mitral 4 years ago) Orthopedic Surgery: Yes (Spinal fusion L2 L3) - Psycho-Social/Smoking History Smoking History: Current every day smoker Have you smoked in the past 12 months: Yes Number of Cigarettes Smoked Daily: 5 Information on smoking cessation initiated: No 'Breaking Loose' booklet given: 05/09/19 - Substance Abuse Hx (Audit-C & DAST Scrn) How often the patient has a drink containing alcohol: Never Score: In Men: 4 or > Positive; In Women: 3 or > Positive: 0 Screen Result (Pos requires Nsg. Audit-10AR): Negative *Physical Exam - Vital Signs Last Vital Signs Temp Pulse Resp BP Pulse Ox 98 F 70 18 141/85 99 10/21/19 16:19 10/21/19 16:19 10/21/19 16:19 10/21/19 16:19 10/21/19 16:19 ED Treatment Course - LABORATORY CBC & Chemistry Diagram: 10/21/19 18:10 10/21/19 17:33 Discharge - Discharge Information Problems reviewed: Yes Clinical Impression/Diagnosis: Abdominal pain Qualifiers: Abdominal location: epigastric Qualified Code(s): R10.13 - Epigastric pain Condition: Fair - Follow up/Referral Referrals: Alli Ayers [Primary Care Provider] - - Patient Discharge Instructions - Post Discharge Activity
[2019-10-21 18:31] LABS: BASO % 0.8 % (0-2.0); EOS % 0.4 % (0-4.5); HEMATOCRIT 47.2 % (35.4-49); HEMOGLOBIN 15.5 GM/dL (11.7-16.9); LYMPH % 16.5 % (8-40); MCH 30.5 pg (25.7-33.7); MCHC 32.9 g/dl (32.0-35.9); MEAN CELL VOLUME 92.7 fl (80-96); MEAN PLT VOLUME 9.7 fl (7.5-11.1); MONO % 9.1 % (3.8-10.2); NEUT % 73.2 % (42.8-82.8); PLATELET COUNT 176 K/MM3 (134-434); RBC 5.09 M/mm3 (4.00-5.60); RDW 13.3 % (11.9-15.9); WHITE BLOOD COUNT 13.6 K/mm3 (4.0-10.0)
--- NOTE | 2019-10-21 19:04 | PDOC ---
*Physical Exam - Vital Signs Last Vital Signs Temp Pulse Resp BP Pulse Ox 98 F 70 18 141/85 99 10/21/19 16:19 10/21/19 16:19 10/21/19 16:19 10/21/19 16:19 10/21/19 16:19 ED Treatment Course - LABORATORY CBC & Chemistry Diagram: 10/21/19 18:10 10/21/19 17:33 - ADDITIONAL ORDERS Additional order review: Laboratory Results 10/21/19 17:33 Lactic Acid 1.9 10/21/19 18:10 RBC 5.09 MCV 92.7 MCHC 32.9 RDW 13.3 MPV 9.7 Neutrophils % 73.2 Lymphocytes % 16.5 Monocytes % 9.1 Eosinophils % 0.4 Basophils % 0.8 - Medications Given in the ED: ED Medications Discontinued Medications Generic Name Dose Route Start Last Admin Trade Name Freq PRN Reason Stop Dose Admin Albuterol Sulfate 2 puff 10/21/19 17:16 10/21/19 18:01 Ventolin Hfa Inhaler - IH 10/21/19 17:17 2 puff ONCE ONE Administration Medical Decision Making - Medical Decision Making 10/21/19 19:03 signed out from day team 64M PMH HTN, DM, HLD, HCV, h/o IVDA, COPD, TVR after endocarditis c/o worsening abd pain w/ nausea; seen and DC'd from ED earlier in the AM c/o substernal cp sx worsened after eating [] CTA r/o AoD; CT A/P [] f/u labs [] dispo 10/21/19 20:22 labs reviewed BNP elevated 1370 from 500 on 05/09/19 10/21/19 21:28 states he has had this abd pain x [address] result 10/21/19 21:38 EXAM: ABDOMEN CTA AOR \T\ BLE RUNOFF HISTORY: Rule out dissection COMPARISON: CTA chest 05/08/19 FINDINGS: CTA- Normal course and caliber of the thoracic and abdominal aorta without aneurysmal without dissection. Mild atherosclerotic calcifications throughout the aorta with mild atheromatous plaque in the descending and infrarenal aorta. The major thoracic and abdominal branches are widely patent No evidence of pulmonary embolism Atresia of the left lower lobe pulmonary arteries Chest- No airspace consolidation or pleural effusions. Scattered areas of subsegmental atelectasis and/or scarring bilaterally There are a few patchy groundglass densities in the superior segment of the left lower lobe potentially a developing infiltrate Pleural thickening and scarring with subpleural blebs at the lung apices The tracheobronchial tree is patent The heart is enlarged. There are coronary artery calcifications. Tricuspid valve prosthesis. No pericardial effusion Benign-appearing enlarged precarinal lymph node, possibly reactive Abdomen and pelvis- Fatty changes of the pancreas The liver, gallbladder and biliary tree, spleen and adrenal glands are unremarkable Bilateral simple renal cysts. The kidneys are otherwise unremarkable No bowel distention or thickening. Nonvisualized appendix The pelvic organs are grossly normal Small left inguinal hernia containing fat No intra-abdominal free air, free fluid or loculated collections One or more of the following dose reduction techniques were used: automated exposure control, adjustment of the mA and/or kV according to patient size, use of iterative reconstructive technique. THIS DOCUMENT HAS BEEN ELECTRONICALLY SIGNED Shayne Mahajan MD 10/21/2019 21:28 EST M.D. Please call Imaging Clinical Scientist [phone]) with questions. INTERPRETING RADIOLOGIST: Shayne Mahajan MD Electronically Signed: Oct 21, 2019 09:30PM EDT 10/21/19 21:41 will admit for tele 10/21/19 22:23 endorsed to hospitalist SURGICAL SUPPLY ASSISTANT for admission Discharge - Discharge Information Problems reviewed: Yes Clinical Impression/Diagnosis: Substernal chest pain, CHF (congestive heart failure) Condition: Fair - Follow up/Referral - Patient Discharge Instructions - Post Discharge Activity
[2019-10-21 19:05] LABS: ALBUMIN 3.9 g/dl (3.4-5.0); BILIRUBIN,TOTAL 0.7 mg/dL (0.2-1); BLOOD UREA NITROGEN 18.6 mg/dL (7-18); CALCIUM 9.4 mg/dL (8.5-10.1); N-TERMINAL BNP 1373.1 pg/ml (5-125); POTASSIUM 4.3 mmol/L (3.5-5.1); TOT PROT 7.8 g/dl (6.4-8.2)
[2019-10-21] MEDS ORDERED: ACETAMINOPHEN 1000 MG/100 ML VIAL (NON FORMULARY) IVPB ONE (21:27)
[2019-10-21] MEDS ORDERED: ACETAMINOPHEN INJECTION 100 ML IVPB ONE (21:45)
[2019-10-21] MEDS ORDERED: ALBUTEROL SO4 HFA INHALER IH PRN (22:34)
[2019-10-21] MEDS ORDERED: ZOLPIDEM TARTRATE 5 MG TABLET PO PRN (22:37)
--- NOTE | 2019-10-21 22:47 | HP ---
Admitting History and Physical - Primary Care Physician PCP: Alli Ayers - Admission Chief Complaint: Wheezing, SOB, Abdominal Pain, Chest Pain History of Present Illness: This is a 64 y/o male with significant medical history of COPD, HTN, HLD, Biprosthetic Ticupsid Valve (2/2 Endocarditiis), 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 Who presents to the ED 2nd visit for wheezing, SOB, CP, abdominal pain. Patient reports continued abdominal pain. He reports using his inhaler without relief. Patient reports current tobacco use. He denies using illicit drugs. Patient denies fever, chills, dizziness, MILNER, palpitations, N/V/D, constipation, dysuria. History Source: Patient, Medical Record Limitations to Obtaining History: Poor Historian - Past Medical History Cardiovascular: Yes: HTN, Hyperlipdemia, Mitral Insufficiency (no AC) Pulmonary: Yes: COPD Hepatobiliary: Yes: Hepatitis C Endocrine: Yes: Diabetes Mellitus - Past Surgical History Past Surgical History: Yes: Valve Replacement - Smoking History Smoking history: Current every day smoker Have you smoked in the past 12 months: Yes Aproximately how many cigarettes per day: 5 - Alcohol/Substance Use Hx Alcohol Use: No History of Substance Use: reports: Heroin - Social History Usual Living Arrangement: Yes: Alone ADL: Independent History of Recent Travel: No Home Medications - Allergies Allergies/Adverse Reactions: Allergies Allergy/AdvReac Type Severity Reaction Status Date / Time Penicillins Allergy Verified 10/21/19 16:22 - Home Medications Home Medications: Ambulatory Orders Sitagliptin Phosphate [Januvia -] 50 mg PO DAILY 05/09/19 Albuterol 0.083% Nebulizer Anastasia [Ventolin 0.083% Nebulizer Soln -] 1 amp NEB Q4H PRN amp 05/10/19 Budesonide/Formeterol Fumarate [SYMBICORT 160/4.5mcg -] 2 puff IH BID inhaler 05/10/19 Methadone [Dolophine -] 60 mg PO DAILY@0600 tablet 05/10/19 Sertraline HCl [Zoloft -] 50 mg PO DAILY #30 tablet 07/11/19 Aspirin [Aspirin EC] 81 mg PO DAILY 10/21/19 Omeprazole 20 mg PO DAILY 10/21/19 Family Medical History Family History: As Documented Family Hx Congestive Heart Failure: Father Family Hx Respiratory Disorders: Mother (TB- ) Review of Systems - Review of Systems Constitutional: reports: No Symptoms Eyes: reports: No Symptoms HENT: reports: No Symptoms Neck: reports: No Symptoms Cardiovascular: reports: Chest Pain, Shortness of Breath Respiratory: reports: Cough, SOB, Wheezing Gastrointestinal: reports: Abdominal Pain Genitourinary: reports: No Symptoms Breasts: reports: No Symptoms Reported Musculoskeletal: reports: No Symptoms Integumentary: reports: No Symptoms Neurological: reports: No Symptoms Endocrine: reports: No Symptoms Hematology/Lymphatic: reports: No Symptoms Psychiatric: reports: No Symptoms Pain Intensity: 6 Physical Examination Vital Signs: Vital Signs Temperature 98 F 10/21/19 16:19 Pulse Rate 70 10/21/19 16:19 Respiratory Rate 18 10/21/19 16:19 Blood Pressure 141/85 10/21/19 16:19 O2 Sat by Pulse Oximetry (%) 99 10/21/19 16:19 Constitutional: Yes: Well Nourished, Mild Distress, Obese, Other (crying) Eyes: Yes: Conjunctiva Clear, EOM Intact, PERRL HENT: Yes: Atraumatic, Normocephalic Neck: Yes: Supple, Trachea Midline Cardiovascular: Yes: Regular Rate and Rhythm, Murmur, S1, S2 Respiratory: Yes: Cough, Rhonchi, SOB, Wheezes Gastrointestinal: Yes: Normal Bowel Sounds, Soft, Abdomen, Obese, Hernia, Tenderness, Epigastrium ...Rectal Exam: Yes: Deferred Renal/: Yes: WNL Breast(s): Yes: WNL Musculoskeletal: Yes: WNL Extremities: Yes: WNL Edema: No Peripheral Pulses WNL: Yes Integumentary: Yes: Venous Stasis Changes (b/l LE) Neurological: Yes: Alert, Oriented, Cran Nerves II-XII Intact ...Motor Strength: WNL Psychiatric: Yes: WNL, Alert, Oriented Labs: CBC, BMP 10/21/19 18:10 10/21/19 17:33 Laboratory Results - last 24 hr 10/21/19 10/21/19 10/21/19 17:33 17:33 18:10 WBC 13.6 H RBC 5.09 Hgb 15.5 Hct 47.2 MCV 92.7 MCH 30.5 MCHC 32.9 RDW 13.3 Plt Count 176 MPV 9.7 Absolute Neuts (auto) 10.0 H Neutrophils % 73.2 Lymphocytes % 16.5 Monocytes % 9.1 Eosinophils % 0.4 Basophils % 0.8 Nucleated RBC % 0 Sodium 139 Potassium 4.3 Chloride 96 L Carbon Dioxide 37 H Anion Gap 6 L BUN 18.6 H Creatinine 1.0 Est GFR (CKD-EPI)AfAm 91.78 Est GFR (CKD-EPI)NonAf 79.19 Random Glucose 90 Lactic Acid 1.9 Calcium 9.4 Total Bilirubin 0.7 AST 21 ALT 22 Alkaline Phosphatase 110 Troponin I 0.03 B-Natriuretic Peptide 1373.1 H Total Protein 7.8 Albumin 3.9 Lipase 74 Intake & Output 10/18/19 10/19/19 10/20/19 10/21/19 23:59 23:59 23:59 23:59 Weight 82.554 kg Current Medications Generic Name Dose Route Start Last Admin Trade Name Freq PRN Reason Stop Dose Admin Albuterol Sulfate 2 puff 10/21/19 22:34 Ventolin Hfa Inhaler - IH Q4H PRN SHORT OF BREATH/WHEEZING Aspirin 81 mg 10/22/19 10:00 Ecotrin - PO DAILY [facility] Budesonide/Formoterol Fumarate 2 puff 10/22/19 10:00 Symbicort 160/4.5mcg - IH BID [facility] Pantoprazole Sodium 20 mg 10/22/19 10:00 Protonix - PO DAILY [facility] Zolpidem Tartrate 5 mg 10/21/19 22:37 Ambien - PO HS PRN INSOMNIA Imaging - Results Chest X-ray: Report Reviewed, Image Reviewed Cat Scan: Report Reviewed, Image Reviewed Ultrasound: Report Reviewed, Image Reviewed EKG: Image Reviewed Problem List - Problems (1) Chest pain Code(s): R07.9 - CHEST PAIN, UNSPECIFIED (2) Abdominal pain Code(s): R10.9 - UNSPECIFIED ABDOMINAL PAIN Qualifiers: Abdominal location: epigastric Qualified Code(s): R10.13 - Epigastric pain (3) COPD with acute exacerbation Code(s): J44.1 - CHRONIC OBSTRUCTIVE PULMONARY DISEASE W (ACUTE) EXACERBATION (4) SOB (shortness of breath) Code(s): R06.02 - SHORTNESS OF BREATH (5) CHF (congestive heart failure) Code(s): I50.9 - HEART FAILURE, UNSPECIFIED (6) Diabetes 1.5, managed as type 2 Code(s): E13.9 - OTHER SPECIFIED DIABETES MELLITUS WITHOUT COMPLICATIONS (7) H/O mitral valve replacement Assessment/Plan: medtronic model [id number] Code(s): Z95.2 - PRESENCE OF PROSTHETIC HEART VALVE (8) Hepatitis C infection Code(s): B19.20 - UNSPECIFIED VIRAL HEPATITIS C WITHOUT HEPATIC COMA (9) History of heroin abuse Code(s): F11.11 - OPIOID ABUSE, IN REMISSION (10) Tobacco dependence Code(s): F17.200 - NICOTINE DEPENDENCE, UNSPECIFIED, UNCOMPLICATED Assessment/Plan This is a 64 y/o male with significant medical history of COPD, HTN, HLD, Biprosthetic Ticupsid Valve (2/2 Endocarditiis), Former IVDU (on Methadone), Hep C. Admitted to Telemetry for Chest Pain r/o ACS, COPD Exacerbation, CHF Exacerbation, Intractable Abdominal Pain. Plan: Will r/o ACS Cardiac monitoring Serial Enzymes Appreciate Cardiology consult Echo 05/10/19- EF 35-40%, lvsf mod reduced, mod dilated ra, trace tr CTAP- reviewed Chest Xray-reviewed Albuterol MDI Continue home meds Verified methadone dose with ([facility]- Nurse Abigail) Continue Methadone 60mg po Counseled on smoking cessation Nicotine patch PPI f/u with GI and Surgeon outpatient [facility] [place] Covid Screening- Smart-Extrusion Press Adjuster 1, Low Risk, Covid PCR-pending, Isolation Precautions FEN- PO fluids as tolerated, replete lytes prn, Low Na Diet DVT ppx- OOB, SCDs, Heparin SQ Dispo: Requires Inpatient Care Visit type - Emergency Visit Emergency Visit: Yes ED Registration Date: 10/21/19 Care time: The patient presented to the Emergency Department on the above date and was hospitalized for further evaluation of their emergent condition. - New Patient This patient is new to me today: Yes Date on this admission: 10/21/19 - Critical Care Critical Care patient: No
[2019-10-22] MEDS ORDERED: ZOLPIDEM TARTRATE 5 MG TABLET ONE (00:58)
[2019-10-22] MEDS ORDERED: METHADONE HCL 40 MG DISPERSABLE TABLET PO SCH (06:30)
[2019-10-22] MEDS ORDERED: METHADONE HCL 10 MG TABLET ONE (06:48)
[2019-10-22 08:23] LABS: BASO % 0.4 % (0-2.0); EOS % 0.6 % (0-4.5); HEMATOCRIT 43.1 % (35.4-49); LYMPH % 17.4 % (8-40); MCH 29.6 pg (25.7-33.7); MCHC 32.5 g/dl (32.0-35.9); MEAN PLT VOLUME 9.4 fl (7.5-11.1); MONO % 10.7 % (3.8-10.2); NEUT % 70.9 % (42.8-82.8); PLATELET COUNT 180 K/MM3 (134-434); RBC 4.74 M/mm3 (4.00-5.60); WHITE BLOOD COUNT 11.2 K/mm3 (4.0-10.0)
[2019-10-22 08:51] LABS: ALBUMIN 3.5 g/dl (3.4-5.0); BLOOD UREA NITROGEN 20.6 mg/dL (7-18); CALCIUM 9.1 mg/dL (8.5-10.1); CREATININE 0.9 mg/dL (0.55-1.3); POTASSIUM 4.5 mmol/L (3.5-5.1)
[2019-10-22 08:55] LABS: TOT PROT 7.2 g/dl (6.4-8.2)
--- NOTE | 2019-10-22 09:16 | EKG ---
Test Reason : Blood Pressure : / mmHG Vent. Rate : 070 BPM Atrial Rate : 070 BPM P-R Int : 164 ms QRS Dur : 146 ms QT Int : 468 ms P-R-T Axes : 061 101 -34 degrees QTc Int : 505 ms NORMAL SINUS RHYTHM RIGHT BUNDLE BRANCH BLOCK ABNORMAL ECG WHEN COMPARED WITH ECG OF 21-OCT-2019 06:13, QT HAS LENGTHENED Confirmed by ANGEL LORENZ MD ([id number]) on 10/22/2019 9:16:33 AM Referred By: Confirmed By:ANGEL LORENZ MD
--- NOTE | 2019-10-22 09:42 | PN ---
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 Who presents to the ED 2nd visit for wheezing, SOB, CP, abdominal pain. Patient reports continued abdominal pain. He reports using his inhaler without relief. Patient reports current tobacco use. He denies using illicit drugs. Patient denies fever, chills, dizziness, MILNER, palpitations, N/V/D, constipation, dysuria. This am pt states no cp at this time - Current Medication List Current Medications: Active Medications Albuterol Sulfate (Ventolin Hfa Inhaler -) 2 puff IH Q4H PRN PRN Reason: SHORT OF BREATH/WHEEZING Aspirin (Ecotrin -) 81 mg PO DAILY [facility] Budesonide/Formoterol Fumarate (Symbicort 160/4.5mcg -) 2 puff IH BID [facility] Methadone HCl (Dolophine -) 60 mg PO DAILY@0600 [facility] Last Admin: 10/22/19 06:50 Dose: 60 mg Documented by: Pantoprazole Sodium (Protonix -) 20 mg PO DAILY [facility] Zolpidem Tartrate (Ambien -) 5 mg PO HS PRN PRN Reason: INSOMNIA - Objective Vital Signs: Vital Signs Temperature 98 F 10/21/19 16:19 Pulse Rate 76 10/22/19 07:01 Respiratory Rate 14 10/22/19 07:01 Blood Pressure 160/89 10/22/19 07:01 O2 Sat by Pulse Oximetry (%) 95 10/22/19 07:01 Cardiovascular: Yes: S1, S2 Respiratory: Yes: Regular, CTA Bilaterally Gastrointestinal: Yes: Normal Bowel Sounds, Soft. No: Tenderness Edema: No Labs: CBC, BMP 10/22/19 08:00 10/22/19 08:00 Problem List - Problems (1) Abdominal pain Assessment/Plan: await results of ct GI consult Abnormal Lab Results 10/21/19 10/21/19 10/22/19 17:33 18:10 08:00 WBC 13.6 H 11.2 H Absolute Neuts (auto) 10.0 H Monocytes % 10.7 H Chloride 96 L Carbon Dioxide 37 H Anion Gap 6 L BUN 18.6 H B-Natriuretic Peptide 1373.1 H Cholesterol Total LDL Cholesterol 10/22/19 08:00 WBC Absolute Neuts (auto) Monocytes % Chloride 97 L Carbon Dioxide 33 H Anion Gap BUN 20.6 H B-Natriuretic Peptide Cholesterol 203 H Total LDL Cholesterol 131 H Code(s): R10.9 - UNSPECIFIED ABDOMINAL PAIN Qualifiers: Abdominal location: epigastric Qualified Code(s): R10.13 - Epigastric pain (2) Diabetes Assessment/Plan: bgm with Code(s): E11.9 - TYPE 2 DIABETES MELLITUS WITHOUT COMPLICATIONS (3) COPD (chronic obstructive pulmonary disease) Assessment/Plan: Pulm consult nebs and steroids per pulm Code(s): J44.9 - CHRONIC OBSTRUCTIVE PULMONARY DISEASE, UNSPECIFIED (4) CHF (congestive heart failure) Assessment/Plan: cxr ordered ' Troponin, BNP 10/21/19 10/22/19 17:33 08:00 Troponin I 0.03 0.03 B-Natriuretic Peptide 1373.1 H cardio lasix per cxr Code(s): I50.9 - HEART FAILURE, UNSPECIFIED (5) H/O mitral valve replacement Code(s): Z95.2 - PRESENCE OF PROSTHETIC HEART VALVE
[2019-10-22] MEDS ORDERED: PANTOPRAZOLE 20 MG TABLET PO SCH (10:00)
[2019-10-22] MEDS ORDERED: BUDESONIDE/FORMETEROL FUMARATE 160/4.5 mcg INHALER IH SCH (10:00)
[2019-10-22] MEDS ORDERED: ASPIRIN COATED 81 MG TABLET.EC PO SCH (10:00)
--- NOTE | 2019-10-22 10:03 | CON.CARD ---
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 who presents to the ED 2nd visit for wheezing, SOB, CP, abdominal pain and distension. No orthopnea or pnd, mild ankle edema. CTA negative for aortic dissection. Cardiac cath [facility] 05/11/19: Widely patent coronary arteries with mild luminal irregularities. Right dominant system. Estimated LVEF 50-55%, LVEDP 11 mmHg. 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 CTA [facility] 05/13/19: IMPRESSION: No suspicious lung nodule or parenchymal consolidation. Emphysema. Marked attenuation of the left interlobar pulmonary artery which is probably the cause of collateral lung circulation originating from the coronary arteries seen on recent cardiac catheterization. The underlying pulmonary artery abnormality could be from chronic pulmonary embolism or theoretically prior indwelling catheter/instrumentation. Cardiomegaly with right heart predominant enlargement post bioprosthetic tricuspid valve replacement. - Past Medical History Cardio/Vascular: Yes: HTN, Hyperlipdemia, Mitral Insufficiency (no AC) Pulmonary: Yes: COPD Hepatobiliary: Yes: Hepatitis C Endocrine: Yes: Diabetes Mellitus - Past Surgical History Past Surgical History: Yes: Valve Replacement - Alcohol/Substance Use Hx Alcohol Use: No History of Substance Use: reports: Heroin - Smoking History Smoking history: Current every day smoker Have you smoked in the past 12 months: Yes Aproximately how many cigarettes per day: 5 - Social History ADL: Independent History of Recent Travel: No Home Medications - Allergies Allergies/Adverse Reactions: Allergies Allergy/AdvReac Type Severity Reaction Status Date / Time Penicillins Allergy Verified 10/21/19 16:22 - Home Medications Home Medications: Ambulatory Orders Sitagliptin Phosphate [Januvia -] 50 mg PO DAILY 05/09/19 Albuterol 0.083% Nebulizer Anastasia [Ventolin 0.083% Nebulizer Soln -] 1 amp NEB Q4H PRN amp 05/10/19 Budesonide/Formeterol Fumarate [SYMBICORT 160/4.5mcg -] 2 puff IH BID inhaler 05/10/19 Methadone [Dolophine -] 60 mg PO DAILY@0600 tablet 05/10/19 Sertraline HCl [Zoloft -] 50 mg PO DAILY #30 tablet 07/11/19 Aspirin [Aspirin EC] 81 mg PO DAILY 10/21/19 Omeprazole 20 mg PO DAILY 10/21/19 Family Medical History Family Hx Cardiac Disorders: Father () Family Hx Congestive Heart Failure: Father Family Hx Respiratory Disorders: Mother (TB- ) Vital Signs: Vital Signs Temperature 98 F 10/21/19 16:19 Pulse Rate 76 10/22/19 07:01 Respiratory Rate 14 10/22/19 07:01 Blood Pressure 160/89 10/22/19 07:01 O2 Sat by Pulse Oximetry (%) 95 10/22/19 07:01 - Other Data Labs, Other Data: CBC, BMP 10/22/19 08:00 10/22/19 08:00 Troponin, BNP 10/21/19 10/22/19 17:33 08:00 Troponin I 0.03 0.03 B-Natriuretic Peptide 1373.1 H Troponin, BNP 10/21/19 10/22/19 17:33 08:00 Troponin I 0.03 0.03 B-Natriuretic Peptide 1373.1 H Imaging - Results Chest X-ray: Report Reviewed EKG: Report Reviewed Assessment/Plan 64 y/o male with a history of COPD, HTN, HLD, 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 who presents to the ED 2nd visit for wheezing, SOB, CP, abdominal pain and distension. No orthopnea or pnd, mild ankle edema. CTA negative for aortic dissection. Cardiac cath [facility] 05/11/19: Widely patent coronary arteries with mild luminal irregularities. Right dominant system. Estimated LVEF 50-55%, LVEDP 11 mmHg. 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 CTA [facility] 05/13/19: IMPRESSION: No suspicious lung nodule or parenchymal consolidation. Emphysema. Marked attenuation of the left interlobar pulmonary artery which is probably the cause of collateral lung circulation originating from the coronary arteries seen on recent cardiac catheterization. The underlying pulmonary artery abnormality could be from chronic pulmonary embolism or theoretically prior indwelling catheter/instrumentation. Cardiomegaly with right heart predominant enlargement post bioprosthetic tricuspid valve replacement. IMP -no evidence of ACS, known recent cath normal coronaries. -likely a combination of hepatic disease and right heart failure. The fistula is nonclinical. -would start lasix 40 mg IV daily, consider spironolactone 25 bid as well. -daily wts. -no need for telemetry monitoring. -follow electrolytes. -GI to see -will follow with you.
[2019-10-22] MEDS ORDERED: ASPIRIN COATED 81 MG TABLET.EC ONE (10:18)
[2019-10-22] MEDS ORDERED: PANTOPRAZOLE 20 MG TABLET PO ONE (10:20)
--- NOTE | 2019-10-22 10:49 | PN ---
Progress Note (short form) - Note Progress Note: patient is patient of Dr. Ross's. Advise calling his service for consultation. I let Dr. Ross be aware of the consult
[2019-10-22] MEDS ORDERED: METHADONE 40 MG, METHADONE 20 MG PO SCH (11:45)
--- NOTE | 2019-10-22 14:51 | CON.PULM ---
Consult Consult Specialty:: PULM/CCM Referred by:: SANJAY Reason for Consultation:: SOB - History of Present Illness Chief Complaint: SOB History of Present Illness: 64 M, COPD due to previous smoking history, HTN, HLD, Biprosthetic Ticupsid Valve (2/2 Endocarditiis), former IVDU (on Methadone), and Hep C. Admitted via the ER due to progressive SOB and CP. Also reports non-specific abdominal pain. He has not found relief of his SOB with is Albuterol inhaler. Denies fever, chills, dizziness, [place], palpitations, etc. CT Chest: minimal chronic appearing atelectasis - History Source History Provided By: Patient Limitations to Obtaining History: No Limitations - Past Medical History Cardio/Vascular: Yes: HTN, Hyperlipdemia, Mitral Insufficiency (no AC) Pulmonary: Yes: Asthma, Bronchitis, COPD, Pneumonia. No: Cancer, Previously Intubated, Pulmonary Embolus, Pulmonary Fibrosis Hepatobiliary: Yes: Hepatitis C Endocrine: Yes: Diabetes Mellitus - Past Surgical History Past Surgical History: Yes: Valve Replacement - Alcohol/Substance Use Hx Alcohol Use: No History of Substance Use: reports: Heroin - Smoking History Smoking history: Current every day smoker Have you smoked in the past 12 months: Yes Aproximately how many cigarettes per day: 5 - Social History ADL: Independent History of Recent Travel: No Home Medications - Allergies Allergies/Adverse Reactions: Allergies Allergy/AdvReac Type Severity Reaction Status Date / Time Penicillins Allergy Verified 10/21/19 16:22 - Home Medications Home Medications: Ambulatory Orders Sitagliptin Phosphate [Januvia -] 50 mg PO DAILY 05/09/19 Albuterol 0.083% Nebulizer Anastasia [Ventolin 0.083% Nebulizer Soln -] 1 amp NEB Q4H PRN amp 05/10/19 Budesonide/Formeterol Fumarate [SYMBICORT 160/4.5mcg -] 2 puff IH BID inhaler 05/10/19 Methadone [Dolophine -] 60 mg PO DAILY@0600 tablet 05/10/19 Sertraline HCl [Zoloft -] 50 mg PO DAILY #30 tablet 07/11/19 Aspirin [Aspirin EC] 81 mg PO DAILY 10/21/19 Omeprazole 20 mg PO DAILY 10/21/19 Family Medical History Family Hx Cardiac Disorders: Father () Family Hx Congestive Heart Failure: Father Family Hx Respiratory Disorders: Mother (TB- ) Review of Systems - Review of Systems Constitutional: reports: Malaise. denies: Chills, Fever, Loss of Appetite, Night Sweats Eyes: reports: No Symptoms HENT: reports: No Symptoms Neck: reports: No Symptoms Cardiovascular: reports: Chest Pain, Shortness of Breath. denies: Edema, Palpitations Respiratory: reports: Cough, Snoring, SOB, SOB on Exertion, Wheezing. denies: Hemoptysis, Orthopnea, PND Gastrointestinal: reports: Abdominal Pain, Rectal Bleeding, Vomiting, Vomiting Blood Genitourinary: reports: No Symptoms Breasts: reports: No Symptoms Reported Musculoskeletal: reports: No Symptoms Integumentary: reports: No Symptoms Neurological: reports: No Symptoms Endocrine: reports: No Symptoms Hematology/Lymphatic: reports: No Symptoms Psychiatric: reports: No Symptoms Physical Exam Vital Sings: Vital Signs Temperature 98.1 F 10/22/19 10:32 Pulse Rate 74 10/22/19 10:32 Respiratory Rate 16 10/22/19 10:32 Blood Pressure 129/77 10/22/19 10:32 O2 Sat by Pulse Oximetry (%) 97 10/22/19 10:32 Constitutional: Yes: No Distress Eyes: Yes: Conjunctiva Clear, EOM Intact HENT: Yes: Atraumatic, Normocephalic Neck: Yes: Supple, Trachea Midline Cardiovascular: Yes: Regular Rate and Rhythm Respiratory: Yes: Cough, Diminished, On Nasal O2, Rhonchi, SOB, SOB on Exertion, Tachypnea, Wheezes. No: Accessory Muscle Use, Rales, Stridor ...Inspection: Yes: WNL ...Clubbing: No Gastrointestinal: Yes: Normal Bowel Sounds, Soft Renal/: Yes: WNL Musculoskeletal: Yes: WNL Extremities: Yes: WNL Edema: No Peripheral Pulses WNL: Yes Integumentary: Yes: WNL Neurological: Yes: WNL, Alert, Oriented ...Motor Strength: WNL Psychiatric: Yes: WNL, Alert, Oriented Labs: CBC, BMP 10/22/19 08:00 10/22/19 08:00 Imaging - Results Chest X-ray: Report Reviewed, Image Reviewed Cat Scan: Report Reviewed, Image Reviewed Problem List - Problems (1) Abdominal pain Code(s): R10.9 - UNSPECIFIED ABDOMINAL PAIN Qualifiers: Abdominal location: epigastric Qualified Code(s): R10.13 - Epigastric pain (2) CHF (congestive heart failure) Code(s): I50.9 - HEART FAILURE, UNSPECIFIED (3) COPD (chronic obstructive pulmonary disease) Code(s): J44.9 - CHRONIC OBSTRUCTIVE PULMONARY DISEASE, UNSPECIFIED (4) Chest pain Code(s): R07.9 - CHEST PAIN, UNSPECIFIED (5) Diabetes Code(s): E11.9 - TYPE 2 DIABETES MELLITUS WITHOUT COMPLICATIONS (6) COPD with acute exacerbation Code(s): J44.1 - CHRONIC OBSTRUCTIVE PULMONARY DISEASE W (ACUTE) EXACERBATION (7) Dyspnea Code(s): R06.00 - DYSPNEA, UNSPECIFIED Qualifiers: Dyspnea type: unspecified Qualified Code(s): R06.00 - Dyspnea, unspecified (8) H/O mitral valve replacement Code(s): Z95.2 - PRESENCE OF PROSTHETIC HEART VALVE (9) Hepatitis C infection Code(s): B19.20 - UNSPECIFIED VIRAL HEPATITIS C WITHOUT HEPATIC COMA (10) History of heroin abuse Code(s): F11.11 - OPIOID ABUSE, IN REMISSION (11) SOB (shortness of breath) Code(s): R06.02 - SHORTNESS OF BREATH (12) Tobacco dependence Code(s): F17.200 - NICOTINE DEPENDENCE, UNSPECIFIED, UNCOMPLICATED Assessment/Plan PLAN: Medrol Albuterol PRN & Standing Check COVID19 (low suspicion) No smoking PFTs after discharge Sleep screen VTE prophylaxis Monitor off ABX Symbicort BID Will follow Thank you. Dr Ornelas HUDSON Screen - HUDSON History Previously diagnosed with Sleep Apnea: No If Yes, currently using CPAP to treat your HUDSON: No - SNORING Do you snore loudly (enough to be heard thru closed doors)?: Yes - TIRED Do you often feel tired, fatigued, or sleepy during daytime?: Yes - OBSERVED Has anyone observed you stop breathing during your sleep?: Yes - BLOOD PRESSURE Do you have or are being treated for high blood pressure?: Yes - BMI Answer Y if weight exceeds amount listed for your height: No .: HEIGHT & WEIGHT (lbs): 4'10" 167lbs; 4'11" 175 lbs; 5'0" 179lbs;. 5'1" 185lbs; 5'2" 191lbs; 5'3" 197lbs;. 5'4" 204lbs; 5'5" 210lbs; 5'6" 216lbs;. 5'7" 223lbs; 5'8" 230lbs; 5'9" 237lbs;. 5'10" 243lbs; 5'11" 250lbs; 6' 258lbs;. 6'1" 265lbs; 6'2" 272lbs; 6'3" 279lbs;. 6'4" 287lbs; 6'5" 295lbs - AGE Is your age over 50 yrs old?: Yes - NECK CIRCUMFERENCE Neck Circumference 40cm: No - GENDER Male: Yes - SCORE Total Score: 6 Score Interpretation: High Risk of HUDSON .: Interpretation: Score 0-2: Low Risk HUDSON. Score 3-4: Intermediate Risk HUDSON. Score 5-8: High Risk HUDSON
[2019-10-22] MEDS ORDERED: methylPREDNISolone NA SUCC 40 MG/1 ML VIAL ONE (15:33)
[2019-10-22] MEDS: methylPREDNISolone NA SUCC 40 MG/1 ML VIAL IVPUSH SCH ×3 (15:41→17:41)
[2019-10-22] MEDS ORDERED: ALBUTEROL SO4 HFA INHALER IH PRN (17:31)
[2019-10-22] MEDS ORDERED: ALBUTEROL SO4 HFA INHALER IH SCH (18:00)
[2019-10-22] MEDS: BUDESONIDE/FORMETEROL FUMARATE 160/4.5 mcg INHALER IH SCH (21:55)
[2019-10-22] MEDS: ALBUTEROL SO4 HFA INHALER IH SCH (21:56)
[2019-10-22] MEDS: ZOLPIDEM TARTRATE 5 MG TABLET PO PRN (21:57)
[2019-10-22] MEDS: FUROSEMIDE 40 MG/4 ML INJECTABLE VIAL IVPUSH SCH (21:57)
[2019-10-23] MEDS: methylPREDNISolone NA SUCC 40 MG/1 ML VIAL IVPUSH SCH ×3 (02:26→17:00)
[2019-10-23] MEDS ORDERED: METHADONE HCL 10 MG TABLET ONE (05:53)
[2019-10-23] MEDS ORDERED: METHADONE HCL 40 MG DISPERSABLE TABLET ONE (05:54)
[2019-10-23] MEDS: METHADONE 40 MG, METHADONE 20 MG PO SCH (06:08)
[2019-10-23 07:48] LABS: BASO % 0.2 % (0-2.0); HEMATOCRIT 44.7 % (35.4-49); HEMOGLOBIN 14.6 GM/dL (11.7-16.9); LYMPH % 6.8 % (8-40); MCH 29.7 pg (25.7-33.7); MCHC 32.7 g/dl (32.0-35.9); MEAN CELL VOLUME 90.9 fl (80-96); MEAN PLT VOLUME 9.6 fl (7.5-11.1); MONO % 1.7 % (3.8-10.2); NEUT % 91.3 % (42.8-82.8); PLATELET COUNT 185 K/MM3 (134-434); RBC 4.92 M/mm3 (4.00-5.60); WHITE BLOOD COUNT 12.3 K/mm3 (4.0-10.0)
[2019-10-23 08:18] LABS: ALBUMIN 3.4 g/dl (3.4-5.0); BILIRUBIN,TOTAL 0.9 mg/dL (0.2-1); BLOOD UREA NITROGEN 34.2 mg/dL (7-18); CALCIUM 9.3 mg/dL (8.5-10.1); CREATININE 1.2 mg/dL (0.55-1.3); POTASSIUM 4.6 mmol/L (3.5-5.1); TOT PROT 7.1 g/dl (6.4-8.2)
--- NOTE | 2019-10-23 08:35 | PN ---
Progress Note, Physician Chief Complaint: AWAKE ALERT EATING BREAKFAST DENIES CHEST PAIN - Current Medication List Current Medications: Active Medications Albuterol Sulfate (Ventolin Hfa Inhaler -) 2 puff IH Q4H PRN PRN Reason: SHORT OF BREATH/WHEEZING Albuterol Sulfate (Ventolin Hfa Inhaler -) 2 puff IH RQID [facility] Last Admin: 10/22/19 21:56 Dose: 2 puff Documented by: Aspirin (Ecotrin -) 81 mg PO DAILY [facility] Budesonide/Formoterol Fumarate (Symbicort 160/4.5mcg -) 2 puff IH BID [facility] Last Admin: 10/22/19 21:55 Dose: 2 puff Documented by: Furosemide (Lasix Injection -) 40 mg IVPUSH DAILY [facility] Last Admin: 10/22/19 21:57 Dose: 40 mg Documented by: Methadone HCl 40 mg/ Methadone (HCl 20 mg) 60 mg PO DAILY@0600 [facility] Last Admin: 10/23/19 06:08 Dose: 60 mg Documented by: Methylprednisolone Sodium Succinate (Solu-Medrol -) 40 mg IVPUSH Q8H-IV [facility] Last Admin: 10/23/19 02:26 Dose: 40 mg Documented by: Pantoprazole Sodium (Protonix -) 20 mg PO DAILY [facility] Zolpidem Tartrate (Ambien -) 5 mg PO HS PRN PRN Reason: INSOMNIA Last Admin: 10/22/19 21:57 Dose: 5 mg Documented by: - Objective Vital Signs: Vital Signs Temperature 96.8 F L 10/23/19 06:00 Pulse Rate 75 10/23/19 06:00 Respiratory Rate 18 10/23/19 06:00 Blood Pressure 132/81 10/23/19 06:00 O2 Sat by Pulse Oximetry (%) 96 10/23/19 06:00 Constitutional: Yes: No Distress Cardiovascular: Yes: Regular Rate and Rhythm Respiratory: Yes: Regular Gastrointestinal: Yes: Soft Genitourinary: Yes: WNL Extremities: Yes: WNL Edema: Yes Labs: CBC, BMP 10/23/19 07:25 Problem List - Problems (1) CHF (congestive heart failure) Code(s): I50.9 - HEART FAILURE, UNSPECIFIED (2) COPD (chronic obstructive pulmonary disease) Code(s): J44.9 - CHRONIC OBSTRUCTIVE PULMONARY DISEASE, UNSPECIFIED (3) Chest pain Code(s): R07.9 - CHEST PAIN, UNSPECIFIED (4) Diabetes Code(s): E11.9 - TYPE 2 DIABETES MELLITUS WITHOUT COMPLICATIONS (5) Substernal chest pain Code(s): R07.2 - PRECORDIAL PAIN (6) COPD with acute exacerbation Code(s): J44.1 - CHRONIC OBSTRUCTIVE PULMONARY DISEASE W (ACUTE) EXACERBATION Assessment/Plan CARDIAC WORKUP IN PROGRESS IV DIURETICS/02 SUPPORT OOB TO CHAIR MONITOR LABS DC PLANNING TOMORROW
--- NOTE | 2019-10-23 09:28 | PN ---
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 who presents to the ED 2nd visit for wheezing, SOB, CP, abdominal pain and distension. No orthopnea or pnd, mild ankle edema. CTA negative for aortic dissection. Cardiac cath [facility] 05/11/19: Widely patent coronary arteries with mild luminal irregularities. Right dominant system. Estimated LVEF 50-55%, LVEDP 11 mmHg. 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 CTA [facility] 05/13/19: IMPRESSION: No suspicious lung nodule or parenchymal consolidation. Emphysema. Marked attenuation of the left interlobar pulmonary artery which is probably the cause of collateral lung circulation originating from the coronary arteries seen on recent cardiac catheterization. The underlying pulmonary artery abnormality could be from chronic pulmonary embolism or theoretically prior indwelling catheter/instrumentation. Cardiomegaly with right heart predominant enlargement post bioprosthetic tricuspid valve replacement. - Current Medication List Current Medications: Active Medications Albuterol Sulfate (Ventolin Hfa Inhaler -) 2 puff IH Q4H PRN PRN Reason: SHORT OF BREATH/WHEEZING Albuterol Sulfate (Ventolin Hfa Inhaler -) 2 puff IH RQID [facility] Last Admin: 10/22/19 21:56 Dose: 2 puff Documented by: Aspirin (Ecotrin -) 81 mg PO DAILY [facility] Budesonide/Formoterol Fumarate (Symbicort 160/4.5mcg -) 2 puff IH BID [facility] Last Admin: 10/22/19 21:55 Dose: 2 puff Documented by: Furosemide (Lasix Injection -) 40 mg IVPUSH DAILY [facility] Last Admin: 10/22/19 21:57 Dose: 40 mg Documented by: Methadone HCl 40 mg/ Methadone (HCl 20 mg) 60 mg PO DAILY@0600 [facility] Last Admin: 10/23/19 06:08 Dose: 60 mg Documented by: Methylprednisolone Sodium Succinate (Solu-Medrol -) 40 mg IVPUSH Q8H-IV [facility] Last Admin: 10/23/19 02:26 Dose: 40 mg Documented by: Pantoprazole Sodium (Protonix -) 20 mg PO DAILY [facility] Zolpidem Tartrate (Ambien -) 5 mg PO HS PRN PRN Reason: INSOMNIA Last Admin: 10/22/19 21:57 Dose: 5 mg Documented by: - Objective Vital Signs: Vital Signs Temperature 96.8 F L 10/23/19 06:00 Pulse Rate 75 10/23/19 06:00 Respiratory Rate 18 10/23/19 06:00 Blood Pressure 132/81 10/23/19 06:00 O2 Sat by Pulse Oximetry (%) 96 10/23/19 06:00 Constitutional: Yes: No Distress, Calm Eyes: Yes: EOM Intact HENT: Yes: Normocephalic Neck: Yes: Trachea Midline Cardiovascular: Yes: Regular Rate and Rhythm Respiratory: Yes: CTA Bilaterally Gastrointestinal: Yes: Normal Bowel Sounds, Distention (mild) Genitourinary: Yes: WNL Musculoskeletal: Yes: WNL Extremities: Yes: WNL Edema: No Peripheral Pulses WNL: Yes Labs: CBC, BMP 10/23/19 07:25 Assessment/Plan 64 y/o male with a history of COPD, HTN, HLD, 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 who presents to the ED 2nd visit for wheezing, SOB, CP, abdominal pain and distension. No orthopnea or pnd, mild ankle edema. CTA negative for aortic dissection. Cardiac cath [facility] 05/11/19: Widely patent coronary arteries with mild luminal irregularities. Right dominant system. Estimated LVEF 50-55%, LVEDP 11 mmHg. 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 CTA [facility] 05/13/19: IMPRESSION: No suspicious lung nodule or parenchymal consolidation. Emphysema. Marked attenuation of the left interlobar pulmonary artery which is probably the cause of collateral lung circulation originating from the coronary arteries seen on recent cardiac catheterization. The underlying pulmonary artery abnormality could be from chronic pulmonary embolism or theoretically prior indwelling catheter/instrumentation. Cardiomegaly with right heart predominant enlargement post bioprosthetic tricuspid valve replacement. IMP -no evidence of ACS, known recent cath normal coronaries. -likely a combination of hepatic disease and right heart failure. The fistula is nonclinical. -would continue lasix 40 mg IV daily, consider spironolactone 25 bid as well. -daily wts. -no need for telemetry monitoring. -follow electrolytes. -GI to see -will follow with you.
[2019-10-23] MEDS: PANTOPRAZOLE 20 MG TABLET PO SCH (09:42)
[2019-10-23] MEDS: FUROSEMIDE 40 MG/4 ML INJECTABLE VIAL IVPUSH SCH (09:42)
[2019-10-23] MEDS: ASPIRIN COATED 81 MG TABLET.EC PO SCH (09:42)
[2019-10-23] MEDS: ALBUTEROL SO4 HFA INHALER IH SCH ×4 (09:42→20:08)
[2019-10-23] MEDS: BUDESONIDE/FORMETEROL FUMARATE 160/4.5 mcg INHALER IH SCH ×2 (09:42→21:28)
[2019-10-23 12:27] LABS: ANISOCYTOSIS 0; MACROCYTOSIS 0; PLATELET ESTIMATE NORMAL
--- NOTE | 2019-10-23 14:05 | PN ---
Progress Note, Physician History of Present Illness: pulmonary alert,comfortable,-sob,-cp - Current Medication List Current Medications: Active Medications Albuterol Sulfate (Ventolin Hfa Inhaler -) 2 puff IH Q4H PRN PRN Reason: SHORT OF BREATH/WHEEZING Albuterol Sulfate (Ventolin Hfa Inhaler -) 2 puff IH RQID [facility] Last Admin: 10/23/19 11:22 Dose: 2 puff Documented by: Aspirin (Ecotrin -) 81 mg PO DAILY [facility] Last Admin: 10/23/19 09:42 Dose: 81 mg Documented by: Budesonide/Formoterol Fumarate (Symbicort 160/4.5mcg -) 2 puff IH BID [facility] Last Admin: 10/23/19 09:42 Dose: 2 puff Documented by: Furosemide (Lasix Injection -) 40 mg IVPUSH DAILY [facility] Last Admin: 10/23/19 09:42 Dose: 40 mg Documented by: Methadone HCl 40 mg/ Methadone (HCl 20 mg) 60 mg PO DAILY@0600 [facility] Last Admin: 10/23/19 06:08 Dose: 60 mg Documented by: Methylprednisolone Sodium Succinate (Solu-Medrol -) 40 mg IVPUSH Q8H-IV [facility] Last Admin: 10/23/19 09:42 Dose: 40 mg Documented by: Pantoprazole Sodium (Protonix -) 20 mg PO DAILY [facility] Last Admin: 10/23/19 09:42 Dose: 20 mg Documented by: Zolpidem Tartrate (Ambien -) 5 mg PO HS PRN PRN Reason: INSOMNIA Last Admin: 10/22/19 21:57 Dose: 5 mg Documented by: - Objective Vital Signs: Vital Signs Temperature 95.5 F L 10/23/19 09:29 Pulse Rate 82 10/23/19 09:29 Respiratory Rate 18 10/23/19 09:29 Blood Pressure 146/89 10/23/19 09:29 O2 Sat by Pulse Oximetry (%) 97 10/23/19 09:29 Constitutional: Yes: Well Nourished, Calm Eyes: Yes: WNL HENT: Yes: WNL Neck: Yes: WNL Cardiovascular: Yes: Regular Rate and Rhythm, S1, S2 Respiratory: Yes: Diminished Gastrointestinal: Yes: Normal Bowel Sounds, Soft Extremities: Yes: WNL Edema: No Labs: CBC, BMP 10/23/19 07:25 10/23/19 07:25 Assessment/Plan Problem List - Problems (1) Abdominal pain Code(s): R10.9 - UNSPECIFIED ABDOMINAL PAIN Qualifiers: Abdominal location: epigastric Qualified Code(s): R10.13 - Epigastric pain (2) CHF (congestive heart failure) Code(s): I50.9 - HEART FAILURE, UNSPECIFIED (3) COPD (chronic obstructive pulmonary disease) Code(s): J44.9 - CHRONIC OBSTRUCTIVE PULMONARY DISEASE, UNSPECIFIED (4) Chest pain Code(s): R07.9 - CHEST PAIN, UNSPECIFIED (5) Diabetes Code(s): E11.9 - TYPE 2 DIABETES MELLITUS WITHOUT COMPLICATIONS (6) COPD with acute exacerbation Code(s): J44.1 - CHRONIC OBSTRUCTIVE PULMONARY DISEASE W (ACUTE) EXACERBATION (7) Dyspnea Code(s): R06.00 - DYSPNEA, UNSPECIFIED Qualifiers: Dyspnea type: unspecified Qualified Code(s): R06.00 - Dyspnea, unspecified (8) H/O mitral valve replacement Code(s): Z95.2 - PRESENCE OF PROSTHETIC HEART VALVE (9) Hepatitis C infection Code(s): B19.20 - UNSPECIFIED VIRAL HEPATITIS C WITHOUT HEPATIC COMA (10) History of heroin abuse Code(s): F11.11 - OPIOID ABUSE, IN REMISSION (11) SOB (shortness of breath) Code(s): R06.02 - SHORTNESS OF BREATH (12) Tobacco dependence Code(s): F17.200 - NICOTINE DEPENDENCE, UNSPECIFIED, UNCOMPLICATED Assessment/Plan PLAN: Medrol Albuterol PRN & Standing COVID19 NEGATIVE No smoking PFTs after discharge Sleep screen VTE prophylaxis Symbicort BID DR GARZA
--- NOTE | 2019-10-23 14:26 | CON.GI ---
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 Who pre sents to the ED 2nd visit for wheezing, SOB, CP, abdominal pain. Patient reports continued abdominal pain. He reports using his inhaler without relief. Patient reports current tobacco use He takes Aspirin daily. The last EGD was 2017 shich revealed mild gastritis. S/p Ct 04/2018 which was normal. - Past Medical History Cardio/Vascular: Yes: HTN, Hyperlipdemia, Mitral Insufficiency (no AC) Pulmonary: Yes: Asthma, Bronchitis, COPD, Pneumonia. No: Cancer, Previously Intubated, Pulmonary Embolus, Pulmonary Fibrosis Hepatobiliary: Yes: Hepatitis C Endocrine: Yes: Diabetes Mellitus - Past Surgical History Past Surgical History: Yes: Valve Replacement - Alcohol/Substance Use Hx Alcohol Use: No History of Substance Use: reports: Heroin - Smoking History Smoking history: Current every day smoker Have you smoked in the past 12 months: Yes Aproximately how many cigarettes per day: 10 - Social History ADL: Independent History of Recent Travel: No Home Medications - Allergies Allergies/Adverse Reactions: Allergies Allergy/AdvReac Type Severity Reaction Status Date / Time Penicillins Allergy Verified 10/21/19 16:22 - Home Medications Home Medications: Ambulatory Orders Sitagliptin Phosphate [Januvia -] 50 mg PO DAILY 05/09/19 Albuterol 0.083% Nebulizer Anastasia [Ventolin 0.083% Nebulizer Soln -] 1 amp NEB Q4H PRN amp 05/10/19 Budesonide/Formeterol Fumarate [SYMBICORT 160/4.5mcg -] 2 puff IH BID inhaler 05/10/19 Methadone [Dolophine -] 60 mg PO DAILY@0600 tablet 05/10/19 Sertraline HCl [Zoloft -] 50 mg PO DAILY #30 tablet 07/11/19 Aspirin [Aspirin EC] 81 mg PO DAILY 10/21/19 Omeprazole 20 mg PO DAILY 10/21/19 Family Medical History Family Hx Cardiac Disorders: Father () Family Hx Congestive Heart Failure: Father Family Hx Respiratory Disorders: Mother (TB- ) Physical Exam-GI Vital Signs: Vital Signs Temperature 97.5 F L 10/23/19 13:00 Pulse Rate 89 10/23/19 13:00 Respiratory Rate 18 10/23/19 13:00 Blood Pressure 113/63 10/23/19 13:00 O2 Sat by Pulse Oximetry (%) 94 L 10/23/19 13:00 Labs: CBC, BMP 10/23/19 07:25 10/23/19 07:25 CBCD WBC 12.3 K/mm3 (4.0-10.0) H 10/23/19 07:25 RBC 4.92 M/mm3 (4.00-5.60) 10/23/19 07:25 Hgb 14.6 GM/dL (11.7-16.9) 10/23/19 07:25 Hct 44.7 % (35.4-49) 10/23/19 07:25 MCV 90.9 fl (80-96) 10/23/19 07:25 MCHC 32.7 g/dl (32.0-35.9) 10/23/19 07:25 RDW 13.0 % (11.9-15.9) 10/23/19 07:25 Plt Count 185 K/MM3 (134-434) 10/23/19 07:25 MPV 9.6 fl (7.5-11.1) 10/23/19 07:25 CMP Sodium 135 mmol/L (136-145) L 10/23/19 07:25 Potassium 4.6 mmol/L (3.5-5.1) 10/23/19 07:25 Chloride 95 mmol/L (98-107) L 10/23/19 07:25 Carbon Dioxide 32 mmol/L (21-32) 10/23/19 07:25 Anion Gap 8 MMOL/L (8-16) 10/23/19 07:25 BUN 34.2 mg/dL (7-18) H 10/23/19 07:25 Creatinine 1.2 mg/dL (0.55-1.3) 10/23/19 07:25 Calcium 9.3 mg/dL (8.5-10.1) 10/23/19 07:25 Total Bilirubin 0.9 mg/dL (0.2-1) 10/23/19 07:25 AST 11 U/L (15-37) L 10/23/19 07:25 ALT 22 U/L (13-61) 10/23/19 07:25 Alkaline Phosphatase 115 U/L (45-117) 10/23/19 07:25 Total Protein 7.1 g/dl (6.4-8.2) 10/23/19 07:25 Albumin 3.4 g/dl (3.4-5.0) 10/23/19 07:25
[2019-10-23] MEDS: ZOLPIDEM TARTRATE 5 MG TABLET PO PRN (21:28)
[2019-10-24] MEDS: methylPREDNISolone NA SUCC 40 MG/1 ML VIAL IVPUSH SCH (01:10)
[2019-10-24] MEDS ORDERED: METHADONE HCL 40 MG DISPERSABLE TABLET ONE (05:43)
[2019-10-24] MEDS ORDERED: METHADONE HCL 10 MG TABLET ONE (05:43)
[2019-10-24] MEDS: METHADONE 40 MG, METHADONE 20 MG PO SCH (05:58)
--- NOTE | 2019-10-24 08:26 | PN ---
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 Who presents to the ED 2nd visit for wheezing, SOB, CP, abdominal pain. Patient reports continued abdominal pain. He reports using his inhaler without relief. Patient reports current tobacco use. He denies using illicit drugs. Patient denies fever, chills, dizziness, MILNER, palpitations, N/V/D, constipation, dysuria. This am pt states no cp at this time no abd pain breathing better - Current Medication List Current Medications: Active Medications Albuterol Sulfate (Ventolin Hfa Inhaler -) 2 puff IH Q4H PRN PRN Reason: SHORT OF BREATH/WHEEZING Albuterol Sulfate (Ventolin Hfa Inhaler -) 2 puff IH RQID [facility] Last Admin: 10/23/19 20:08 Dose: 2 puff Documented by: Aspirin (Ecotrin -) 81 mg PO DAILY [facility] Last Admin: 10/23/19 09:42 Dose: 81 mg Documented by: Budesonide/Formoterol Fumarate (Symbicort 160/4.5mcg -) 2 puff IH BID [facility] Last Admin: 10/23/19 21:28 Dose: 2 puff Documented by: Furosemide (Lasix Injection -) 40 mg IVPUSH DAILY [facility] Last Admin: 10/23/19 09:42 Dose: 40 mg Documented by: Methadone HCl 40 mg/ Methadone (HCl 20 mg) 60 mg PO DAILY@0600 [facility] Last Admin: 10/24/19 05:58 Dose: 60 mg Documented by: Methylprednisolone Sodium Succinate (Solu-Medrol -) 40 mg IVPUSH Q8H-IV [facility] Last Admin: 10/24/19 01:10 Dose: 40 mg Documented by: Pantoprazole Sodium (Protonix -) 20 mg PO DAILY [facility] Last Admin: 10/23/19 09:42 Dose: 20 mg Documented by: Zolpidem Tartrate (Ambien -) 5 mg PO HS PRN PRN Reason: INSOMNIA Last Admin: 10/23/19 21:28 Dose: 5 mg Documented by: - Objective Vital Signs: Vital Signs Temperature 97.6 F 10/24/19 05:00 Pulse Rate 70 10/24/19 05:00 Respiratory Rate 20 08/19/20 05:00 Blood Pressure 137/75 10/24/19 05:00 O2 Sat by Pulse Oximetry (%) 95 10/24/19 05:00 Cardiovascular: Yes: Regular Rate and Rhythm Respiratory: Yes: Regular, CTA Bilaterally Gastrointestinal: Yes: Normal Bowel Sounds, Soft Labs: CBC, BMP 10/23/19 07:25 10/23/19 07:25 Problem List - Problems (1) Abdominal pain Assessment/Plan: Resolved GI consult Abnormal Lab Results 10/21/19 10/21/19 10/22/19 17:33 18:10 08:00 WBC 13.6 H 11.2 H Absolute Neuts (auto) 10.0 H Monocytes % 10.7 H Chloride 96 L Carbon Dioxide 37 H Anion Gap 6 L BUN 18.6 H B-Natriuretic Peptide 1373.1 H Cholesterol Total LDL Cholesterol 10/22/19 08:00 WBC Absolute Neuts (auto) Monocytes % Chloride 97 L Carbon Dioxide 33 H Anion Gap BUN 20.6 H B-Natriuretic Peptide Cholesterol 203 H Total LDL Cholesterol 131 H Code(s): R10.9 - UNSPECIFIED ABDOMINAL PAIN Qualifiers: Abdominal location: epigastric Qualified Code(s): R10.13 - Epigastric pain (2) Diabetes Assessment/Plan: bgm with ss Code(s): E11.9 - TYPE 2 DIABETES MELLITUS WITHOUT COMPLICATIONS (3) COPD (chronic obstructive pulmonary disease) Assessment/Plan: Pulm consult nebs steroids to po Code(s): J44.9 - CHRONIC OBSTRUCTIVE PULMONARY DISEASE, UNSPECIFIED (4) CHF (congestive heart failure) Assessment/Plan: ' Troponin, BNP 10/21/19 10/22/19 17:33 08:00 Troponin I 0.03 0.03 B-Natriuretic Peptide 1373.1 H cardio lasix to po add spironolactone 25 qd Code(s): I50.9 - HEART FAILURE, UNSPECIFIED (5) H/O mitral valve replacement Assessment/Plan: cardio on board Code(s): Z95.2 - PRESENCE OF PROSTHETIC HEART VALVE
--- NOTE | 2019-10-24 10:03 | PN ---
Progress Note, Physician Chief Complaint: much improved. 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 who presents to the ED 2nd visit for wheezing, SOB, CP, abdominal pain and distension. No orthopnea or pnd, mild ankle edema. CTA negative for aortic dissection. seen by Dr Vandana RIVERA. Cardiac cath [facility] 05/11/19: Widely patent coronary arteries with mild luminal irregularities. Right dominant system. Estimated LVEF 50-55%, LVEDP 11 mmHg. 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 CTA [facility] 05/13/19: IMPRESSION: No suspicious lung nodule or parenchymal consolidation. Emphysema. Marked attenuation of the left interlobar pulmonary artery which is probably the cause of collateral lung circulation originating from the coronary arteries seen on recent cardiac catheterization. The underlying pulmonary artery abnormality could be from chronic pulmonary embolism or theoretically prior indwelling catheter/instrumentation. Cardiomegaly with right heart predominant enlargement post bioprosthetic tricuspid valve replacement. - Current Medication List Current Medications: Active Medications Albuterol Sulfate (Ventolin Hfa Inhaler -) 2 puff IH Q4H PRN PRN Reason: SHORT OF BREATH/WHEEZING Albuterol Sulfate (Ventolin Hfa Inhaler -) 2 puff IH RQID [facility] Last Admin: 10/23/19 20:08 Dose: 2 puff Documented by: Aspirin (Ecotrin -) 81 mg PO DAILY [facility] Last Admin: 10/23/19 09:42 Dose: 81 mg Documented by: Budesonide/Formoterol Fumarate (Symbicort 160/4.5mcg -) 2 puff IH BID [facility] Last Admin: 10/23/19 21:28 Dose: 2 puff Documented by: Furosemide (Lasix Injection -) 40 mg IVPUSH DAILY [facility] Last Admin: 10/23/19 09:42 Dose: 40 mg Documented by: Furosemide (Lasix -) 40 mg PO DAILY [facility] Methadone HCl 40 mg/ Methadone (HCl 20 mg) 60 mg PO DAILY@0600 [facility] Last Admin: 10/24/19 05:58 Dose: 60 mg Documented by: Pantoprazole Sodium (Protonix -) 20 mg PO DAILY [facility] Last Admin: 10/23/19 09:42 Dose: 20 mg Documented by: Prednisone (Deltasone -) 40 mg PO DAILY [facility] Spironolactone (Aldactone -) 25 mg PO DAILY [facility] Zolpidem Tartrate (Ambien -) 5 mg PO HS PRN PRN Reason: INSOMNIA Last Admin: 10/23/19 21:28 Dose: 5 mg Documented by: - Objective Vital Signs: Vital Signs Temperature 97.6 F 10/24/19 05:00 Pulse Rate 70 10/24/19 05:00 Respiratory Rate 10/24/19 05:00 Blood Pressure 137/75 10/24/19 05:00 O2 Sat by Pulse Oximetry (%) 95 10/24/19 05:00 Constitutional: Yes: No Distress, Calm Eyes: Yes: Conjunctiva Clear, EOM Intact HENT: Yes: Normocephalic Neck: Yes: Trachea Midline Cardiovascular: Yes: Regular Rate and Rhythm, S1, S2 Respiratory: Yes: CTA Bilaterally Gastrointestinal: Yes: Normal Bowel Sounds, Soft Musculoskeletal: Yes: WNL Extremities: Yes: WNL Edema: No Labs: CBC, BMP 10/23/19 07:25 10/23/19 07:25 Assessment/Plan 64 y/o male with a history of COPD, HTN, HLD, 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 who presents to the ED 2nd visit for wheezing, SOB, CP, abdominal pain and distension. No orthopnea or pnd, mild ankle edema. CTA negative for aortic dissection. Cardiac cath [facility] 05/11/19: Widely patent coronary arteries with mild luminal irreg ularities. Right dominant system. Estimated LVEF 50-55%, LVEDP 11 mmHg. 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 CTA [facility] 05/13/19: IMPRESSION: No suspicious lung nodule or parenchymal consolidation. Emphysema. Marked attenuation of the left interlobar pulmonary artery which is probably the cause of collateral lung circulation originating from the coronary arteries seen on recent cardiac catheterization. The underlying pulmonary artery abnormality could be from chronic pulmonary embolism or theoretically prior indwelling ca theter/instrumentation. Cardiomegaly with right heart predominant enlargement post bioprosthetic tri cuspid valve replacement. IMP -no evidence of ACS, known recent cath normal coronaries. -likely a combination of hepatic disease and right heart failure. The fistula is nonclinical. -would continue lasix 40 mg IV daily, consider spironolactone 25 bid as well. -daily wts. -no need for telemetry monitoring. -follow electrolytes. -GI full note pending. -CV status is much improved. change lasix to PO. -will follow with you.
[2019-10-24] MEDS: ALBUTEROL SO4 HFA INHALER IH SCH ×4 (10:37→22:11)
[2019-10-24] MEDS: ASPIRIN COATED 81 MG TABLET.EC PO SCH (10:38)
[2019-10-24] MEDS: SPIRONOLACTONE 25 MG TABLET PO SCH (10:38)
[2019-10-24] MEDS: PANTOPRAZOLE 20 MG TABLET PO SCH (10:38)
[2019-10-24] MEDS: predniSONE 20 MG TABLET (UD) PO SCH (10:39)
[2019-10-24] MEDS: FUROSEMIDE 40 MG TABLET (FP) PO SCH (10:39)
[2019-10-24] MEDS: BUDESONIDE/FORMETEROL FUMARATE 160/4.5 mcg INHALER IH SCH ×2 (10:41→22:11)
--- NOTE | 2019-10-24 10:46 | PN ---
Progress Note, Physician History of Present Illness: pulmonary alert,comfortable,-sob - Current Medication List Current Medications: Active Medications Albuterol Sulfate (Ventolin Hfa Inhaler -) 2 puff IH Q4H PRN PRN Reason: SHORT OF BREATH/WHEEZING Albuterol Sulfate (Ventolin Hfa Inhaler -) 2 puff IH RQID [facility] Last Admin: 10/24/19 10:37 Dose: 2 puff Documented by: Aspirin (Ecotrin -) 81 mg PO DAILY [facility] Last Admin: 10/24/19 10:38 Dose: 81 mg Documented by: Budesonide/Formoterol Fumarate (Symbicort 160/4.5mcg -) 2 puff IH BID [facility] Last Admin: 10/24/19 10:41 Dose: 2 puff Documented by: Furosemide (Lasix -) 40 mg PO DAILY [facility] Last Admin: 10/24/19 10:39 Dose: 40 mg Documented by: Methadone HCl 40 mg/ Methadone (HCl 20 mg) 60 mg PO DAILY@0600 [facility] Last Admin: 10/24/19 05:58 Dose: 60 mg Documented by: Pantoprazole Sodium (Protonix -) 20 mg PO DAILY [facility] Last Admin: 10/24/19 10:38 Dose: 20 mg Documented by: Prednisone (Deltasone -) 40 mg PO DAILY [facility] Last Admin: 10/24/19 10:39 Dose: 40 mg Documented by: Spironolactone (Aldactone -) 25 mg PO DAILY [facility] Last Admin: 10/24/19 10:38 Dose: 25 mg Documented by: Zolpidem Tartrate (Ambien -) 5 mg PO HS PRN PRN Reason: INSOMNIA Last Admin: 10/23/19 21:28 Dose: 5 mg Documented by: - Objective Vital Signs: Vital Signs Temperature 97.6 F 10/24/19 05:00 Pulse Rate 70 10/24/19 05:00 Respiratory Rate 20 10/24/19 05:00 Blood Pressure 137/75 10/24/19 05:00 O2 Sat by Pulse Oximetry (%) 95 10/24/19 05:00 Constitutional: Yes: Well Nourished, Calm Eyes: Yes: WNL HENT: Yes: WNL Neck: Yes: WNL Cardiovascular: Yes: Regular Rate and Rhythm, S1, S2 Respiratory: Yes: CTA Bilaterally Gastrointestinal: Yes: Normal Bowel Sounds, Soft Extremities: Yes: WNL Edema: No Assessment/Plan Problem List - Problems (1) Abdominal pain Code(s): R10.9 - UNSPECIFIED ABDOMINAL PAIN Qualifiers: Abdominal location: epigastric Qualified Code(s): R10.13 - Epigastric pain (2) CHF (congestive heart failure) Code(s): I50.9 - HEART FAILURE, UNSPECIFIED (3) COPD (chronic obstructive pulmonary disease) Code(s): J44.9 - CHRONIC OBSTRUCTIVE PULMONARY DISEASE, UNSPECIFIED (4) Chest pain Code(s): R07.9 - CHEST PAIN, UNSPECIFIED (5) Diabetes Code(s): E11.9 - TYPE 2 DIABETES MELLITUS WITHOUT COMPLICATIONS (6) COPD with acute exacerbation Code(s): J44.1 - CHRONIC OBSTRUCTIVE PULMONARY DISEASE W (ACUTE) EXACERBATION (7) Dyspnea Code(s): R06.00 - DYSPNEA, UNSPECIFIED Qualifiers: Dyspnea type: unspecified Qualified Code(s): R06.00 - Dyspnea, unspecified (8) H/O mitral valve replacement Code(s): Z95.2 - PRESENCE OF PROSTHETIC HEART VALVE (9) Hepatitis C infection Code(s): B19.20 - UNSPECIFIED VIRAL HEPATITIS C WITHOUT HEPATIC COMA (10) History of heroin abuse Code(s): F11.11 - OPIOID ABUSE, IN REMISSION (11) SOB (shortness of breath) Code(s): R06.02 - SHORTNESS OF BREATH (12) Tobacco dependence Code(s): F17.200 - NICOTINE DEPENDENCE, UNSPECIFIED, UNCOMPLICATED Assessment/Plan PLAN: Prednisone taper as outpatient Albuterol PRN & Standing COVID19 NEGATIVE No smoking PFTs after discharge VTE prophylaxis Symbicort BID DR GARZA
[2019-10-24] MEDS: FUROSEMIDE 40 MG/4 ML INJECTABLE VIAL IVPUSH SCH (10:47)
[2019-10-24 10:49] LABS: BASO % 0.3 % (0-2.0); HEMATOCRIT 47.4 % (35.4-49); HEMOGLOBIN 15.3 GM/dL (11.7-16.9); LYMPH % 5.5 % (8-40); MCH 30.1 pg (25.7-33.7); MCHC 32.3 g/dl (32.0-35.9); MEAN CELL VOLUME 93.1 fl (80-96); MEAN PLT VOLUME 10.3 fl (7.5-11.1); MONO % 5.2 % (3.8-10.2); PLATELET COUNT 194 K/MM3 (134-434); RBC 5.09 M/mm3 (4.00-5.60); RDW 13.2 % (11.9-15.9)
[2019-10-24 11:12] LABS: ALBUMIN 3.6 g/dl (3.4-5.0); BILIRUBIN,TOTAL 0.5 mg/dL (0.2-1); BLOOD UREA NITROGEN 49.7 mg/dL (7-18); CALCIUM 9.1 mg/dL (8.5-10.1); CREATININE 1.3 mg/dL (0.55-1.3); POTASSIUM 5.1 mmol/L (3.5-5.1); TOT PROT 7.5 g/dl (6.4-8.2)
[2019-10-24] MEDS: ZOLPIDEM TARTRATE 5 MG TABLET PO PRN (22:11)
[2019-10-25] MEDS ORDERED: METHADONE HCL 40 MG DISPERSABLE TABLET ONE (05:39)
[2019-10-25] MEDS ORDERED: METHADONE HCL 10 MG TABLET ONE (05:40)
[2019-10-25] MEDS: METHADONE 40 MG, METHADONE 20 MG PO SCH (05:45)
[2019-10-25 08:09] LABS: BLOOD UREA NITROGEN 48.5 mg/dL (7-18); CALCIUM 9.2 mg/dL (8.5-10.1); CREATININE 1.2 mg/dL (0.55-1.3); POTASSIUM 4.6 mmol/L (3.5-5.1)
[2019-10-25 08:18] LABS: BASO % 0.3 % (0-2.0); EOS % 0.1 % (0-4.5); HEMATOCRIT 45.7 % (35.4-49); HEMOGLOBIN 14.9 GM/dL (11.7-16.9); LYMPH % 10.8 % (8-40); MCH 30.1 pg (25.7-33.7); MCHC 32.7 g/dl (32.0-35.9); MEAN CELL VOLUME 92.3 fl (80-96); MEAN PLT VOLUME 9.8 fl (7.5-11.1); MONO % 7.8 % (3.8-10.2); PLATELET COUNT 175 K/MM3 (134-434); RBC 4.95 M/mm3 (4.00-5.60); RDW 13.3 % (11.9-15.9); WHITE BLOOD COUNT 16.4 K/mm3 (4.0-10.0)
[2019-10-25] MEDS: ASPIRIN COATED 81 MG TABLET.EC PO SCH (09:04)
[2019-10-25] MEDS: FUROSEMIDE 40 MG TABLET (FP) PO SCH (09:04)
[2019-10-25] MEDS: predniSONE 20 MG TABLET (UD) PO SCH (09:04)
[2019-10-25] MEDS: SPIRONOLACTONE 25 MG TABLET PO SCH (09:04)
[2019-10-25] MEDS: PANTOPRAZOLE 20 MG TABLET PO SCH (09:05)
[2019-10-25] MEDS: BUDESONIDE/FORMETEROL FUMARATE 160/4.5 mcg INHALER IH SCH (09:08)
[2019-10-25 09:18] VITALS: BP 130/93; PULSE 88; TEMP 98.3
[2019-10-25] MEDS: ALBUTEROL SO4 HFA INHALER IH SCH (09:19)
[2019-10-25 10:00] LABS: ANISOCYTOSIS 0; MACROCYTOSIS 0; PLATELET ESTIMATE NORMAL
--- NOTE | 2019-10-25 10:32 | DS ---
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 Who presents to the ED 2nd visit for wheezing, SOB, CP, abdominal pain. Patient reports continued abdominal pain. He reports using his inhaler without relief. Patient reports current tobacco use. He denies using illicit drugs. Patient denies fever, chills, dizziness, MILNER, palpitations, N/V/D, constipation, dysuria. Cardiac cath [facility] 05/11/19: Widely patent coronary arteries with mild luminal irregularities. Right dominant system. Estimated LVEF 50-55%, LVEDP 11 mmHg. 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 CTA [facility] 05/13/19: IMPRESSION: No suspicious lung nodule or parenchymal consolidation. Emphysema. Marked attenuation of the left interlobar pulmonary artery which is probably the cause of collateral lung circulation originating from the coronary arteries seen on recent cardiac catheterization. The underlying pulmonary artery abnormality could be from chronic pulmonary embolism or theoretically prior indwelling catheter/instrumentation. Cardiomegaly with right heart predominant enlargement post bioprosthetic tricuspid valve replacement. NAD self ambulatory Wants to go home Constitutional: Yes: Well Nourished, No Distress, Calm Cardiovascular: Yes: Regular Rate and Rhythm Respiratory: Yes: Regular, CTA Bilaterally Gastrointestinal: Yes: Normal Bowel Sounds, Soft Renal/: Yes: WNL Musculoskeletal: Yes: WNL Extremities: Yes: WNL Edema: No Peripheral Pulses WNL: Yes Neurological: Yes: Alert, Oriented Psychiatric: Yes: Alert, Oriented Labs: CBC, BMP 10/25/19 06:40 10/25/19 06:40 Discharge Summary Problems reviewed: Yes Reason For Visit: CONGESTIVE HEART FAILURE,ABDOMINAL PAIN Current Active Problems Abdominal pain (Acute) CHF (congestive heart failure) (Acute) COPD (chronic obstructive pulmonary disease) (Acute) Chest pain (Acute) Diabetes (Acute) Substernal chest pain (Acute) Condition: Stable - Instructions Referrals: Azam Chavez MD [Staff Physician] - Alli Ayers [Primary Care Provider] - Disposition: HOME - Home Medications Comprehensive Discharge Medication List: Ambulatory Orders Sitagliptin Phosphate [Januvia -] 50 mg PO DAILY 05/09/19 Albuterol 0.083% Nebulizer Anastasia [Ventolin 0.083% Nebulizer Soln -] 1 amp NEB Q4H PRN amp 05/10/19 Budesonide/Formeterol Fumarate [SYMBICORT 160/4.5mcg -] 2 puff IH BID inhaler 05/10/19 Methadone [Dolophine -] 60 mg PO DAILY@0600 tablet 05/10/19 Sertraline HCl [Zoloft -] 50 mg PO DAILY #30 tablet 07/11/19 Aspirin [Aspirin EC] 81 mg PO DAILY 10/21/19 Omeprazole 20 mg PO DAILY 10/21/19 Prescription Drug Monitoring Program (I-STOP) results: I-STOP reviewed and no issues identified
--- NOTE | 2019-10-25 10:49 | PN ---
Progress Note, Physician Chief Complaint: much improved. 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 who presents to the ED 2nd visit for wheezing, SOB, CP, abdominal pain and distension. No orthopnea or pnd, mild ankle edema. CTA negative for aortic dissection. seen by Dr Vandana RIVERA. Cardiac cath [facility] 05/11/19: Widely patent coronary arteries with mild luminal irregularities. Right dominant system. Estimated LVEF 50-55%, LVEDP 11 mmHg. 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 CTA [facility] 05/13/19: IMPRESSION: No suspicious lung nodule or parenchymal consolidation. Emphysema. Marked attenuation of the left interlobar pulmonary artery which is probably the cause of collateral lung circulation originating from the coronary arteries seen on recent cardiac catheterization. The underlying pulmonary artery abnormality could be from chronic pulmonary embolism or theoretically prior indwelling catheter/instrumentation. Cardiomegaly with right heart predominant enlargement post bioprosthetic tricuspid valve replacement. - Current Medication List Current Medications: Active Medications Albuterol Sulfate (Ventolin Hfa Inhaler -) 2 puff IH Q4H PRN PRN Reason: SHORT OF BREATH/WHEEZING Albuterol Sulfate (Ventolin Hfa Inhaler -) 2 puff IH RQID [facility] Last Admin: 10/25/19 09:19 Dose: 2 puff Documented by: Aspirin (Ecotrin -) 81 mg PO DAILY [facility] Last Admin: 10/25/19 09:04 Dose: 81 mg Documented by: Budesonide/Formoterol Fumarate (Symbicort 160/4.5mcg -) 2 puff IH BID [facility] Last Admin: 10/25/19 09:08 Dose: 2 puff Documented by: Furosemide (Lasix -) 40 mg PO DAILY [facility] Last Admin: 10/25/19 09:04 Dose: 40 mg Documented by: Methadone HCl 40 mg/ Methadone (HCl 20 mg) 60 mg PO DAILY@0600 [facility] Last Admin: 10/25/19 05:45 Dose: 60 mg Documented by: Pantoprazole Sodium (Protonix -) 20 mg PO DAILY [facility] Last Admin: 10/25/19 09:05 Dose: 20 mg Documented by: Prednisone (Deltasone -) 40 mg PO DAILY [facility] Last Admin: 10/25/19 09:04 Dose: 40 mg Documented by: Spironolactone (Aldactone -) 25 mg PO BID [facility] Zolpidem Tartrate (Ambien -) 5 mg PO HS PRN PRN Reason: INSOMNIA Last Admin: 10/24/19 22:11 Dose: 5 mg Documented by: - Objective Vital Signs: Vital Signs Temperature 98.3 F 10/25/19 09:15 Pulse Rate 88 10/25/19 09:15 Respiratory Rate 10/25/19 09:15 Blood Pressure 130/93 10/25/19 09:15 O2 Sat by Pulse Oximetry (%) 92 L 10/25/19 09:15 Constitutional: Yes: No Distress, Calm Eyes: Yes: Conjunctiva Clear, EOM Intact HENT: Yes: Atraumatic, Normocephalic Neck: Yes: Trachea Midline Cardiovascular: Yes: Regular Rate and Rhythm Respiratory: Yes: CTA Bilaterally Gastrointestinal: Yes: Normal Bowel Sounds, Soft Breast(s): Yes: Gynecomastia Extremities: Yes: WNL Edema: No Labs: CBC, BMP 10/25/19 06:40 10/25/19 06:40 Assessment/Plan 64 y/o male with a history of COPD, HTN, HLD, 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 who presents to the ED 2nd visit for wheezing, SOB, CP, abdominal pain and distension. No orthopnea or pnd, mild ankle edema. CTA negative for aortic dissection. Cardiac cath [facility] 05/11/19: Widely patent coronary arteries with mild luminal irregularities. Right dominant system. Estimated LVEF 50-55%, LVEDP 11 mmHg. 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 CTA [facility] 05/13/19: IMPRESSION: No suspicious lung nodule or parenchymal consolidation. Emphysema. Marked attenuation of the left interlobar pulmonary artery which is probably the cause of collateral lung circulation originating from the coronary arteries seen on recent cardiac catheterization. The underlying pulmonary artery abnormality could be from chronic pulmonary embolism or theoretically prior indwelling catheter/instrumentation. Cardiomegaly with right heart predominant enlargement post bioprosthetic tricuspid valve replacement. IMP -no evidence of ACS, known recent cath normal coronaries. -likely a combination of hepatic disease and right heart failure. The fistula is nonclinical. -would continue lasix 40 mg IV daily, consider spironolactone 25 bid as well. -daily wts. -no need for telemetry monitoring. -follow electrolytes. -GI full note pending. -CV status is much improved. change lasix to PO. -will follow as outpatient with Dr Castro.
[2019-10-25] MEDS ORDERED: SPIRONOLACTONE 25 MG TABLET PO SCH (22:00)
== END 2019-10-25 11:28 | disposition home or self-care (01) | DRG 140 ==
LOC: JER 16:03 → JERBED 21:41 → J6WEST-2 10-22 16:45 → J5S 10-24 14:06
PROVIDERS: ADMIT Internal Medicine; ATTEND Family Medicine
DX: J44.1 Chronic obstructive pulmonary disease with (acute) exacerbation (principal); R10.13 Epigastric pain; B19.20 Unspecified viral hepatitis C without hepatic coma; F17.200 Nicotine dependence, unspecified, uncomplicated; I11.0 Hypertensive heart disease with heart failure; I50.810 Right heart failure, unspecified; F11.20 Opioid dependence, uncomplicated; I28.0 Arteriovenous fistula of pulmonary vessels; E78.5 Hyperlipidemia, unspecified; I34.0 Nonrheumatic mitral (valve) insufficiency; E11.9 Type 2 diabetes mellitus without complications; Z95.2 Presence of prosthetic heart valve
CPT/HCPCS: 36415; 71045-TC-FY; 75635-TC; 80048; 80053; 80061; 82962; 83605; 83690; 83721; 83880; 84484; 85025; 93005; 93010; 99285-25; J0131; Q9967; U0003

== ENCOUNTER 2020-07-06 23:58 | Inpatient (IN) | payer OTHER ==
[2020-07-07] MEDS ORDERED: DEXAMETHASONE SOD PHOSPHATE 10 MG/1 ML VIAL IVPUSH ONE (00:16)
[2020-07-07] MEDS ORDERED: MAGNESIUM SULF 50% (8.12 MEQ/2 ML-1 GM VIAL) IVPB ONE (00:16)
[2020-07-07] MEDS ORDERED: ALBUTEROL SO4 2.5/IPRATROPIUM 0.5 INH SOL 3 ML VIAL.NEB. NEB ONE (00:17)
[2020-07-07] MEDS ORDERED: ACETAMINOPHEN 1000 MG/100 ML VIAL (NON FORMULARY) IVPB ONE (00:22)
[2020-07-07] MEDS ORDERED: DEXAMETHASONE SOD PHOSPHATE 10 MG/1 ML VIAL ONE (00:24)
[2020-07-07] MEDS ORDERED: MAGNESIUM SULFATE IN WATER 2 GM/50 ML IVPB IVPB ONE (00:24)
[2020-07-07] MEDS: ALBUTEROL SO4 2.5/IPRATROPIUM 0.5 INH SOL 3 ML VIAL.NEB. NEB SCH ×5 (00:35→22:01)
[2020-07-07] MEDS ORDERED: ONDANSETRON 4 MG/2 ML VIAL IVPUSH ONE (00:39)
[2020-07-07] MEDS ORDERED: ACETAMINOPHEN INJECTION 100 ML IVPB ONE (00:43)
[2020-07-07 00:45] LABS: BASO % 0.5 % (0-2.0); EOS % 1.5 % (0-4.5); HEMOGLOBIN 13.8 GM/dL (11.7-16.9); LYMPH % 16.7 % (8-40); MCH 30.5 pg (25.7-33.7); MCHC 32.2 g/dl (32.0-35.9); MEAN CELL VOLUME 94.7 fl (80-96); MEAN PLT VOLUME 10.1 fl (7.5-11.1); MONO % 10.6 % (3.8-10.2); NEUT % 70.7 % (42.8-82.8); PLATELET COUNT 200 K/MM3 (134-434); RBC 4.53 M/mm3 (4.00-5.60); RDW 14.4 % (11.9-15.9); WHITE BLOOD COUNT 12.2 K/mm3 (4.0-10.0)
[2020-07-07 00:54] LABS: INR 0.97 (0.83-1.09)
[2020-07-07 00:56] LABS: ACTIVATED PTT 26.9 SECONDS (25.2-36.5)
[2020-07-07 01:04] LABS: CALCIUM 8.6 mg/dL (8.5-10.1)
[2020-07-07 01:05] LABS: ALBUMIN 3.5 g/dl (3.4-5.0); BLOOD UREA NITROGEN 25.8 mg/dL (7-18)
[2020-07-07 01:07] LABS: BILIRUBIN,DIRECT 0.1 mg/dL (0.0-0.2)
[2020-07-07 01:08] LABS: CREATININE 1.2 mg/dL (0.55-1.3)
[2020-07-07 01:09] LABS: BILIRUBIN,TOTAL 0.3 mg/dL (0.2-1); TOT PROT 7.1 g/dl (6.4-8.2)
[2020-07-07 01:17] LABS: VENOUS BASE EXCESS 0.9 mmol/L (-2-2); VENOUS O2 SATURATION 72.9 % (70-80); VENOUS PCO2 64.1 mmHg (38-52); VENOUS PH 7.28 (7.310-7.410)
[2020-07-07 14:51] LABS: EPI CELLS 1 /uL (0-25.1); HYALINE CASTS 0 /uL (0-3.1); URINE APPEARANCE CLEAR; URINE BACTERIA 4 /uL (0-1359); URINE BILIRUBIN NEGATIVE (NEGATIVE); URINE COLOR YELLOW; URINE GLUCOSE (UA) TRACE (NEGATIVE); URINE KETONE NEGATIVE (NEGATIVE); URINE LEUK ESTERASE NEGATIVE (NEGATIVE); URINE NITRITE NEGATIVE (NEGATIVE); URINE PROTEIN NEGATIVE (NEGATIVE); URINE RBC 27 /uL (0-23.9); URINE UROBILINOGEN 0.2 mg/dL (0.2-1.0); URINE WBC 3 /uL (0-25.8)
[2020-07-07] MEDS ORDERED: FUROSEMIDE 40 MG/4 ML INJECTABLE VIAL IVPUSH SCH (16:15)
[2020-07-07] MEDS ORDERED: methylPREDNISolone NA SUCC 40 MG/1 ML VIAL IVPUSH SCH (16:15)
[2020-07-07] MEDS ORDERED: METHADONE HCL 10 MG TABLET PO ONE (16:44)
[2020-07-07] MEDS ORDERED: METHADONE 40 MG, METHADONE 20 MG PO ONE (17:00)
[2020-07-07] MEDS ORDERED: METHADONE HCL 10 MG TABLET ONE (17:15)
[2020-07-07] MEDS ORDERED: METHADONE HCL 40 MG DISPERSABLE TABLET ONE (17:15)
[2020-07-07] MEDS ORDERED: METHADONE HCL 40 MG DISPERSABLE TABLET PO SCH (20:29)
[2020-07-07] MEDS ORDERED: ALBUTEROL SO4 0.083% IH SOL 2.5 MG/3 ML VIAL.NEB. NEB PRN ×2 (20:29)
[2020-07-07] MEDS ORDERED: ACETAMINOPHEN 325 MG TABLET (FP) PO PRN ×2 (20:29)
[2020-07-07] MEDS: sitaGLIPtin PHOSPHATE 50 MG TABLET PO SCH (20:50)
[2020-07-07] MEDS: DULoxetine HCL 30 MG CAPSULE.DR PO SCH (21:21)
[2020-07-07] MEDS: methylPREDNISolone NA SUCC 40 MG/1 ML VIAL IVPUSH SCH (21:21)
[2020-07-07] MEDS: metoPROLOL SUCCINATE 25 MG TAB.SR.24H (FP) PO SCH (21:21)
[2020-07-07] MEDS: amLODIPine BESYLATE 10 MG TABLET (FP) PO SCH (21:21)
[2020-07-07] MEDS: ROSUVASTATIN CA 5 MG TABLET (FP) PO SCH (21:22)
[2020-07-07] MEDS: BUDESONIDE/FORMETEROL FUMARATE 160/4.5 mcg INHALER IH SCH (23:05)
[2020-07-08] MEDS: methylPREDNISolone NA SUCC 40 MG/1 ML VIAL IVPUSH SCH ×4 (02:47→21:30)
[2020-07-08] MEDS ORDERED: METHADONE HCL 10 MG TABLET ONE (06:01)
[2020-07-08] MEDS ORDERED: METHADONE HCL 40 MG DISPERSABLE TABLET ONE (06:01)
[2020-07-08] MEDS: METHADONE 40 MG, METHADONE 20 MG PO SCH (06:08)
[2020-07-08] MEDS: INSULIN SLIDING SCALE (NOVOLOG) 1 VIAL SQ SCH ×3 (06:16→16:36)
[2020-07-08] MEDS: sitaGLIPtin PHOSPHATE 50 MG TABLET PO SCH (06:16)
[2020-07-08 07:25] LABS: BASO % 0.1 % (0-2.0); HEMATOCRIT 37.7 % (35.4-49); HEMOGLOBIN 12.3 GM/dL (11.7-16.9); LYMPH % 4.1 % (8-40); MCH 30.7 pg (25.7-33.7); MCHC 32.7 g/dl (32.0-35.9); MEAN CELL VOLUME 93.9 fl (80-96); MEAN PLT VOLUME 10.2 fl (7.5-11.1); MONO % 4.3 % (3.8-10.2); NEUT % 91.5 % (42.8-82.8); PLATELET COUNT 163 K/MM3 (134-434); RBC 4.02 M/mm3 (4.00-5.60); RDW 14.3 % (11.9-15.9); WHITE BLOOD COUNT 12.7 K/mm3 (4.0-10.0)
[2020-07-08 07:45] LABS: ALBUMIN 2.9 g/dl (3.4-5.0); BLOOD UREA NITROGEN 38.8 mg/dL (7-18); CALCIUM 8.4 mg/dL (8.5-10.1)
[2020-07-08 07:48] LABS: BILIRUBIN,TOTAL 0.4 mg/dL (0.2-1); CREATININE 1.4 mg/dL (0.55-1.3); TOT PROT 6.3 g/dl (6.4-8.2)
[2020-07-08 07:53] LABS: N-TERMINAL BNP 881.9 pg/ml (5-125)
[2020-07-08] MEDS: ALBUTEROL SO4 2.5/IPRATROPIUM 0.5 INH SOL 3 ML VIAL.NEB. NEB SCH ×4 (08:13→20:42)
[2020-07-08] MEDS: DULoxetine HCL 30 MG CAPSULE.DR PO SCH ×2 (09:18→21:30)
[2020-07-08] MEDS: metoPROLOL SUCCINATE 25 MG TAB.SR.24H (FP) PO SCH (09:18)
[2020-07-08] MEDS: LOSARTAN POTASSIUM 50 MG TABLET PO SCH (09:18)
[2020-07-08] MEDS: ASPIRIN COATED 81 MG TABLET.EC PO SCH (09:18)
[2020-07-08] MEDS: amLODIPine BESYLATE 10 MG TABLET (FP) PO SCH (09:18)
[2020-07-08] MEDS: EZETIMIBE 10 MG TABLET (FP) PO SCH (09:19)
[2020-07-08] MEDS: BUDESONIDE/FORMETEROL FUMARATE 160/4.5 mcg INHALER IH SCH ×2 (09:23→21:30)
[2020-07-08] MEDS ORDERED: FUROSEMIDE 40 MG/4 ML INJECTABLE VIAL IVPUSH SCH (10:00)
[2020-07-08 10:32] LABS: ANISOCYTOSIS 0; HELMET CELLS 0; HOWELL-JOLLY BODIES 0; MACROCYTOSIS 0; OVALOCYTE 0; PLATELET ESTIMATE NORMAL; ROULEAU 0; SICKELED CELLS 0; TARGET CELLS 0; TEAR DROP CELLS 0; TOXIC GRANULATION 0
[2020-07-08] MEDS: FUROSEMIDE 40 MG TABLET (FP) PO SCH (12:20)
[2020-07-08] MEDS: ROSUVASTATIN CA 5 MG TABLET (FP) PO SCH (21:30)
[2020-07-09] MEDS: methylPREDNISolone NA SUCC 40 MG/1 ML VIAL IVPUSH SCH ×4 (02:30→21:09)
[2020-07-09] MEDS ORDERED: METHADONE HCL 40 MG DISPERSABLE TABLET ONE (05:22)
[2020-07-09] MEDS ORDERED: METHADONE HCL 10 MG TABLET ONE (05:22)
[2020-07-09] MEDS: METHADONE 40 MG, METHADONE 20 MG PO SCH (05:27)
[2020-07-09] MEDS: sitaGLIPtin PHOSPHATE 50 MG TABLET PO SCH (06:24)
[2020-07-09] MEDS: INSULIN SLIDING SCALE (NOVOLOG) 1 VIAL SQ SCH ×3 (06:25→16:39)
[2020-07-09] MEDS: ALBUTEROL SO4 2.5/IPRATROPIUM 0.5 INH SOL 3 ML VIAL.NEB. NEB SCH ×4 (07:35→20:46)
[2020-07-09 07:52] LABS: BASO % 0.2 % (0-2.0); HEMATOCRIT 39.3 % (35.4-49); HEMOGLOBIN 12.8 GM/dL (11.7-16.9); LYMPH % 3.6 % (8-40); MCH 30.6 pg (25.7-33.7); MCHC 32.6 g/dl (32.0-35.9); MEAN PLT VOLUME 10.1 fl (7.5-11.1); MONO % 3.7 % (3.8-10.2); NEUT % 92.5 % (42.8-82.8); PLATELET COUNT 179 K/MM3 (134-434); RBC 4.18 M/mm3 (4.00-5.60); RDW 14.9 % (11.9-15.9); WHITE BLOOD COUNT 14.5 K/mm3 (4.0-10.0)
[2020-07-09 08:01] LABS: ALBUMIN 3.4 g/dl (3.4-5.0); CALCIUM 8.6 mg/dL (8.5-10.1)
[2020-07-09 08:04] LABS: CREATININE 3.2 mg/dL (0.55-1.3)
[2020-07-09 08:06] LABS: BILIRUBIN,TOTAL 0.3 mg/dL (0.2-1); TOT PROT 6.9 g/dl (6.4-8.2)
[2020-07-09 08:10] LABS: BLOOD UREA NITROGEN 73.8 mg/dL (7-18)
[2020-07-09] MEDS: ASPIRIN COATED 81 MG TABLET.EC PO SCH (10:51)
[2020-07-09] MEDS: EZETIMIBE 10 MG TABLET (FP) PO SCH (10:51)
[2020-07-09] MEDS: BUDESONIDE/FORMETEROL FUMARATE 160/4.5 mcg INHALER IH SCH ×2 (10:52→21:11)
[2020-07-09] MEDS: DULoxetine HCL 30 MG CAPSULE.DR PO SCH ×2 (10:52→21:09)
[2020-07-09] MEDS: FUROSEMIDE 40 MG TABLET (FP) PO SCH (10:53)
[2020-07-09] MEDS: LOSARTAN POTASSIUM 50 MG TABLET PO SCH (10:53)
[2020-07-09] MEDS: amLODIPine BESYLATE 10 MG TABLET (FP) PO SCH (10:53)
[2020-07-09] MEDS: metoPROLOL SUCCINATE 25 MG TAB.SR.24H (FP) PO SCH (10:53)
[2020-07-09] MEDS ORDERED: SODIUM CHLORIDE 1,000 ML IV SCH ×3 (11:30→23:30)
[2020-07-09 11:35] LABS: ANISOCYTOSIS 0; HELMET CELLS 0; HOWELL-JOLLY BODIES 0; MACROCYTOSIS 0; OVALOCYTE 0; PLATELET ESTIMATE NORMAL; ROULEAU 0; SICKELED CELLS 0; TARGET CELLS 0; TEAR DROP CELLS 0; TOXIC GRANULATION 0
[2020-07-09] MEDS ORDERED: SODIUM ZIRCONIUM CYCLOSILICATE (LOKELMA) 5 GM PACKET PO ONE (12:00)
[2020-07-09 15:31] LABS: EPI CELLS 5 /uL (0-25.1); HYALINE CASTS 7 /uL (0-3.1); URINE APPEARANCE CLOUDY; URINE BACTERIA 3 /uL (0-1359); URINE BILIRUBIN NEGATIVE (NEGATIVE); URINE COLOR DK YELLOW; URINE GLUCOSE (UA) NEGATIVE (NEGATIVE); URINE KETONE TRACE (NEGATIVE); URINE LEUK ESTERASE NEGATIVE (NEGATIVE); URINE NITRITE NEGATIVE (NEGATIVE); URINE PROTEIN NEGATIVE (NEGATIVE); URINE RBC 358 /uL (0-23.9); URINE UROBILINOGEN 0.2 mg/dL (0.2-1.0); URINE WBC 9 /uL (0-25.8)
[2020-07-09] MEDS ORDERED: INSULIN (NOVOLOG) ASPART 100 UNITS/ML 10ML VIAL ONE (16:11)
[2020-07-09 18:50] LABS: URINE CRYSTALS CALCIUM OXALATE /hpf
[2020-07-09] MEDS: ROSUVASTATIN CA 5 MG TABLET (FP) PO SCH (21:09)
[2020-07-10] MEDS: methylPREDNISolone NA SUCC 40 MG/1 ML VIAL IVPUSH SCH ×3 (03:31→21:16)
[2020-07-10] MEDS ORDERED: METHADONE HCL 10 MG TABLET ONE (05:29)
[2020-07-10] MEDS ORDERED: METHADONE HCL 40 MG DISPERSABLE TABLET ONE (05:29)
[2020-07-10] MEDS: METHADONE 40 MG, METHADONE 20 MG PO SCH (05:41)
[2020-07-10] MEDS: INSULIN SLIDING SCALE (NOVOLOG) 1 VIAL SQ SCH ×3 (06:16→17:22)
[2020-07-10] MEDS: sitaGLIPtin PHOSPHATE 50 MG TABLET PO SCH (06:16)
[2020-07-10] MEDS: ALBUTEROL SO4 2.5/IPRATROPIUM 0.5 INH SOL 3 ML VIAL.NEB. NEB SCH ×4 (07:30→20:54)
[2020-07-10 08:15] LABS: BASO % 0.1 % (0-2.0); HEMATOCRIT 38.5 % (35.4-49); HEMOGLOBIN 12.6 GM/dL (11.7-16.9); LYMPH % 3.8 % (8-40); MCH 30.8 pg (25.7-33.7); MCHC 32.8 g/dl (32.0-35.9); MEAN PLT VOLUME 9.6 fl (7.5-11.1); MONO % 2.4 % (3.8-10.2); NEUT % 93.7 % (42.8-82.8); PLATELET COUNT 185 K/MM3 (134-434); RDW 14.2 % (11.9-15.9); WHITE BLOOD COUNT 11.3 K/mm3 (4.0-10.0)
[2020-07-10 08:26] LABS: CHLORIDE 100 mmol/L (98-107); SODIUM 135 mmol/L (136-145)
[2020-07-10 08:33] LABS: CALCIUM 7.6 mg/dL (8.5-10.1)
[2020-07-10 08:34] LABS: ALBUMIN 3.2 g/dl (3.4-5.0); ANION GAP 10 MMOL/L (8-16); CO2 25 mmol/L (21-32); GLUCOSE,RANDOM 171 mg/dL (74-106)
[2020-07-10 08:37] LABS: CREATININE 4.6 mg/dL (0.55-1.3); PHOSPHOROUS 8.8 mg/dL (2.5-4.9); SGOT/AST 15 U/L (15-37); SGPT/ALT 22 U/L (13-61)
[2020-07-10 08:38] LABS: BILIRUBIN,TOTAL 0.4 mg/dL (0.2-1); TOT PROT 6.6 g/dl (6.4-8.2)
[2020-07-10 08:39] LABS: ALK PHOS 77 U/L (45-117)
[2020-07-10 08:41] LABS: BLOOD UREA NITROGEN 104.6 mg/dL (7-18); URIC ACID 13.3 mg/dL (2.6-7.2)
[2020-07-10] MEDS: BUDESONIDE/FORMETEROL FUMARATE 160/4.5 mcg INHALER IH SCH ×2 (09:02→21:20)
[2020-07-10] MEDS: DULoxetine HCL 30 MG CAPSULE.DR PO SCH ×2 (09:02→21:16)
[2020-07-10] MEDS: ASPIRIN COATED 81 MG TABLET.EC PO SCH (09:02)
[2020-07-10] MEDS: metoPROLOL SUCCINATE 25 MG TAB.SR.24H (FP) PO SCH (09:02)
[2020-07-10] MEDS: EZETIMIBE 10 MG TABLET (FP) PO SCH (09:03)
[2020-07-10] MEDS ORDERED: SODIUM CHLORIDE 1,000 ML IV SCH (10:33)
[2020-07-10] MEDS ORDERED: SODIUM ZIRCONIUM CYCLOSILICATE (LOKELMA) 5 GM PACKET PO ONE (10:45)
[2020-07-10 11:55] LABS: ANISOCYTOSIS 1+; MACROCYTOSIS 0; OVALOCYTE 1+; PLATELET ESTIMATE NORMAL; TEAR DROP CELLS 1+
[2020-07-10 17:49] LABS: CHLORIDE 98 mmol/L (98-107); SODIUM 133 mmol/L (136-145)
[2020-07-10 17:50] LABS: CALCIUM 7.7 mg/dL (8.5-10.1)
[2020-07-10 17:51] LABS: ANION GAP 9 MMOL/L (8-16); CO2 26 mmol/L (21-32); GLUCOSE,RANDOM 218 mg/dL (74-106)
[2020-07-10 17:54] LABS: CREATININE 4.9 mg/dL (0.55-1.3)
[2020-07-10 17:57] LABS: BLOOD UREA NITROGEN 112.1 mg/dL (7-18)
[2020-07-10] MEDS: ROSUVASTATIN CA 5 MG TABLET (FP) PO SCH (21:16)
[2020-07-11] MEDS ORDERED: METHADONE HCL 40 MG DISPERSABLE TABLET ONE (06:04)
[2020-07-11] MEDS ORDERED: METHADONE HCL 10 MG TABLET ONE (06:05)
[2020-07-11] MEDS: METHADONE 40 MG, METHADONE 20 MG PO SCH (06:13)
[2020-07-11] MEDS: sitaGLIPtin PHOSPHATE 50 MG TABLET PO SCH (06:13)
[2020-07-11] MEDS: INSULIN SLIDING SCALE (NOVOLOG) 1 VIAL SQ SCH ×3 (06:13→16:59)
[2020-07-11 08:27] LABS: CHLORIDE 100 mmol/L (98-107); SODIUM 136 mmol/L (136-145)
[2020-07-11] MEDS: ALBUTEROL SO4 2.5/IPRATROPIUM 0.5 INH SOL 3 ML VIAL.NEB. NEB SCH ×4 (08:30→19:43)
[2020-07-11 08:36] LABS: CALCIUM 7.7 mg/dL (8.5-10.1)
[2020-07-11 08:37] LABS: ALBUMIN 3.3 g/dl (3.4-5.0); ANION GAP 9 MMOL/L (8-16); CO2 27 mmol/L (21-32); GLUCOSE,RANDOM 144 mg/dL (74-106)
[2020-07-11 08:39] LABS: SGOT/AST 13 U/L (15-37); SGPT/ALT 26 U/L (13-61)
[2020-07-11 08:40] LABS: BILIRUBIN,TOTAL 0.5 mg/dL (0.2-1); CREATININE 5.1 mg/dL (0.55-1.3)
[2020-07-11 08:41] LABS: ALK PHOS 72 U/L (45-117); BLOOD UREA NITROGEN 121.7 mg/dL (7-18); TOT PROT 6.7 g/dl (6.4-8.2)
[2020-07-11] MEDS: methylPREDNISolone NA SUCC 40 MG/1 ML VIAL IVPUSH SCH ×2 (09:06→21:28)
[2020-07-11] MEDS: BUDESONIDE/FORMETEROL FUMARATE 160/4.5 mcg INHALER IH SCH ×2 (09:08→21:29)
[2020-07-11] MEDS: ASPIRIN COATED 81 MG TABLET.EC PO SCH (09:08)
[2020-07-11] MEDS: metoPROLOL SUCCINATE 25 MG TAB.SR.24H (FP) PO SCH (09:08)
[2020-07-11] MEDS: EZETIMIBE 10 MG TABLET (FP) PO SCH (09:08)
[2020-07-11] MEDS: DULoxetine HCL 30 MG CAPSULE.DR PO SCH ×2 (09:08→21:28)
[2020-07-11] MEDS ORDERED: SODIUM ZIRCONIUM CYCLOSILICATE (LOKELMA) 5 GM PACKET PO ONE ×2 (10:00→11:00)
[2020-07-11] MEDS: SODIUM CHLORIDE 1,000 ML IV SCH (13:53)
[2020-07-11] MEDS: ROSUVASTATIN CA 5 MG TABLET (FP) PO SCH (21:28)
[2020-07-12] MEDS ORDERED: METHADONE HCL 40 MG DISPERSABLE TABLET ONE (05:15)
[2020-07-12] MEDS ORDERED: METHADONE HCL 10 MG TABLET ONE (05:16)
[2020-07-12] MEDS: ROSUVASTATIN CA 5 MG TABLET (FP) PO SCH (05:38)
[2020-07-12] MEDS: METHADONE 40 MG, METHADONE 20 MG PO SCH (06:39)
[2020-07-12] MEDS: sitaGLIPtin PHOSPHATE 50 MG TABLET PO SCH (06:40)
[2020-07-12 08:21] LABS: CHLORIDE 103 mmol/L (98-107); SODIUM 136 mmol/L (136-145)
[2020-07-12 08:28] LABS: ALBUMIN 3.3 g/dl (3.4-5.0); ANION GAP 11 MMOL/L (8-16); CALCIUM 7.5 mg/dL (8.5-10.1); CO2 22 mmol/L (21-32); GLUCOSE,RANDOM 135 mg/dL (74-106)
[2020-07-12 08:31] LABS: CREATININE 4.7 mg/dL (0.55-1.3); SGOT/AST 21 U/L (15-37); SGPT/ALT 26 U/L (13-61)
[2020-07-12 08:33] LABS: BILIRUBIN,TOTAL 0.6 mg/dL (0.2-1); TOT PROT 6.6 g/dl (6.4-8.2)
[2020-07-12 08:34] LABS: ALK PHOS 69 U/L (45-117)
[2020-07-12 08:42] LABS: BLOOD UREA NITROGEN 133.6 mg/dL (7-18)
[2020-07-12] MEDS: ALBUTEROL SO4 2.5/IPRATROPIUM 0.5 INH SOL 3 ML VIAL.NEB. NEB SCH ×4 (08:45→20:16)
[2020-07-12] MEDS: INSULIN SLIDING SCALE (NOVOLOG) 1 VIAL SQ SCH ×2 (11:44→18:08)
[2020-07-12] MEDS: DULoxetine HCL 30 MG CAPSULE.DR PO SCH ×2 (11:44→22:00)
[2020-07-12] MEDS: ASPIRIN COATED 81 MG TABLET.EC PO SCH (11:44)
[2020-07-12] MEDS: EZETIMIBE 10 MG TABLET (FP) PO SCH (11:45)
[2020-07-12] MEDS: BUDESONIDE/FORMETEROL FUMARATE 160/4.5 mcg INHALER IH SCH (11:45)
[2020-07-12] MEDS: methylPREDNISolone NA SUCC 40 MG/1 ML VIAL IVPUSH SCH (11:45)
[2020-07-12] MEDS: metoPROLOL SUCCINATE 25 MG TAB.SR.24H (FP) PO SCH (11:45)
[2020-07-12] MEDS: SODIUM CHLORIDE 1,000 ML IV SCH (18:08)
[2020-07-13] MEDS ORDERED: SODIUM CHLORIDE 1,000 ML IV SCH (04:45)
[2020-07-13] MEDS ORDERED: METHADONE HCL 40 MG DISPERSABLE TABLET ONE (05:02)
[2020-07-13] MEDS ORDERED: METHADONE HCL 10 MG TABLET ONE (05:02)
[2020-07-13] MEDS: METHADONE 40 MG, METHADONE 20 MG PO SCH (05:35)
[2020-07-13] MEDS: BUDESONIDE/FORMETEROL FUMARATE 160/4.5 mcg INHALER IH SCH ×3 (05:37→21:08)
[2020-07-13] MEDS: INSULIN SLIDING SCALE (NOVOLOG) 1 VIAL SQ SCH ×4 (07:13→19:38)
[2020-07-13] MEDS: sitaGLIPtin PHOSPHATE 50 MG TABLET PO SCH (07:14)
[2020-07-13 07:36] LABS: CHLORIDE 108 mmol/L (98-107); SODIUM 140 mmol/L (136-145)
[2020-07-13 07:44] LABS: ALBUMIN 3.3 g/dl (3.4-5.0); ANION GAP 6 MMOL/L (8-16); CALCIUM 7.8 mg/dL (8.5-10.1); CO2 27 mmol/L (21-32)
[2020-07-13 07:45] LABS: GLUCOSE,RANDOM 95 mg/dL (74-106)
[2020-07-13 07:47] LABS: SGPT/ALT 32 U/L (13-61)
[2020-07-13 07:48] LABS: CREATININE 4.2 mg/dL (0.55-1.3); SGOT/AST 28 U/L (15-37)
[2020-07-13 07:49] LABS: TOT PROT 6.6 g/dl (6.4-8.2)
[2020-07-13 07:50] LABS: ALK PHOS 70 U/L (45-117); BILIRUBIN,TOTAL 0.7 mg/dL (0.2-1)
[2020-07-13 07:51] LABS: BLOOD UREA NITROGEN 121.8 mg/dL (7-18)
[2020-07-13] MEDS: ALBUTEROL SO4 2.5/IPRATROPIUM 0.5 INH SOL 3 ML VIAL.NEB. NEB SCH ×4 (08:16→21:05)
[2020-07-13] MEDS: ASPIRIN COATED 81 MG TABLET.EC PO SCH (10:17)
[2020-07-13] MEDS: DULoxetine HCL 30 MG CAPSULE.DR PO SCH ×2 (10:17→21:07)
[2020-07-13] MEDS: metoPROLOL SUCCINATE 25 MG TAB.SR.24H (FP) PO SCH (10:18)
[2020-07-13] MEDS: methylPREDNISolone NA SUCC 40 MG/1 ML VIAL IVPUSH SCH (10:18)
[2020-07-13] MEDS: EZETIMIBE 10 MG TABLET (FP) PO SCH (11:00)
[2020-07-13] MEDS: SODIUM ZIRCONIUM CYCLOSILICATE (LOKELMA) 5 GM PACKET PO SCH (13:16)
[2020-07-13] MEDS: SODIUM CHLORIDE 1,000 ML IV SCH ×2 (13:17→19:03)
[2020-07-13] MEDS: ROSUVASTATIN CA 5 MG TABLET (FP) PO SCH (21:07)
[2020-07-14] MEDS ORDERED: ONDANSETRON 4 MG/2 ML VIAL IVPUSH ONE (03:52)
[2020-07-14] MEDS ORDERED: METHADONE HCL 10 MG TABLET ONE (05:44)
[2020-07-14] MEDS ORDERED: METHADONE HCL 40 MG DISPERSABLE TABLET ONE (05:44)
[2020-07-14] MEDS: METHADONE 40 MG, METHADONE 20 MG PO SCH (05:51)
[2020-07-14] MEDS: INSULIN SLIDING SCALE (NOVOLOG) 1 VIAL SQ SCH ×3 (06:07→16:07)
[2020-07-14] MEDS: ALBUTEROL SO4 2.5/IPRATROPIUM 0.5 INH SOL 3 ML VIAL.NEB. NEB SCH ×4 (07:38→19:36)
[2020-07-14 08:21] LABS: CHLORIDE 109 mmol/L (98-107); SODIUM 140 mmol/L (136-145)
[2020-07-14 08:25] LABS: ALBUMIN 3.3 g/dl (3.4-5.0); ANION GAP 8 MMOL/L (8-16); CALCIUM 8.3 mg/dL (8.5-10.1); CO2 23 mmol/L (21-32); GLUCOSE,RANDOM 96 mg/dL (74-106)
[2020-07-14 08:28] LABS: CREATININE 3.4 mg/dL (0.55-1.3); SGPT/ALT 31 U/L (13-61)
[2020-07-14 08:29] LABS: SGOT/AST 21 U/L (15-37)
[2020-07-14 08:30] LABS: BILIRUBIN,TOTAL 0.9 mg/dL (0.2-1); TOT PROT 6.3 g/dl (6.4-8.2)
[2020-07-14 08:31] LABS: ALK PHOS 72 U/L (45-117)
[2020-07-14 08:34] LABS: BLOOD UREA NITROGEN 104.2 mg/dL (7-18)
[2020-07-14] MEDS: EZETIMIBE 10 MG TABLET (FP) PO SCH (09:33)
[2020-07-14] MEDS: DULoxetine HCL 30 MG CAPSULE.DR PO SCH ×2 (09:33→22:53)
[2020-07-14] MEDS: SODIUM ZIRCONIUM CYCLOSILICATE (LOKELMA) 5 GM PACKET PO SCH (09:33)
[2020-07-14] MEDS: ASPIRIN COATED 81 MG TABLET.EC PO SCH (09:33)
[2020-07-14] MEDS: BUDESONIDE/FORMETEROL FUMARATE 160/4.5 mcg INHALER IH SCH ×2 (09:34→22:53)
[2020-07-14] MEDS: methylPREDNISolone NA SUCC 40 MG/1 ML VIAL IVPUSH SCH (09:34)
[2020-07-14] MEDS: metoPROLOL SUCCINATE 25 MG TAB.SR.24H (FP) PO SCH (09:34)
[2020-07-14] MEDS: SODIUM CHLORIDE 1,000 ML IV SCH ×2 (14:20→23:01)
[2020-07-14] MEDS: sitaGLIPtin PHOSPHATE 50 MG TABLET PO SCH (19:25)
[2020-07-14] MEDS: ROSUVASTATIN CA 5 MG TABLET (FP) PO SCH (22:53)
[2020-07-15] MEDS ORDERED: METHADONE HCL 40 MG DISPERSABLE TABLET ONE (05:25)
[2020-07-15] MEDS ORDERED: METHADONE HCL 10 MG TABLET ONE (05:26)
[2020-07-15] MEDS: INSULIN SLIDING SCALE (NOVOLOG) 1 VIAL SQ SCH ×3 (06:05→17:41)
[2020-07-15] MEDS: sitaGLIPtin PHOSPHATE 50 MG TABLET PO SCH (06:08)
[2020-07-15] MEDS: METHADONE 40 MG, METHADONE 20 MG PO SCH (06:11)
[2020-07-15] MEDS: ALBUTEROL SO4 2.5/IPRATROPIUM 0.5 INH SOL 3 ML VIAL.NEB. NEB SCH ×4 (08:47→20:50)
[2020-07-15] MEDS ORDERED: PT OWN MED DRAWER 7, Y5N ONE (09:48)
[2020-07-15 09:52] LABS: HEMATOCRIT 45.9 % (35.4-49); MCH 30.6 pg (25.7-33.7); MCHC 32.7 g/dl (32.0-35.9); MEAN CELL VOLUME 93.7 fl (80-96); MEAN PLT VOLUME 9.7 fl (7.5-11.1); PLATELET COUNT 141 K/MM3 (134-434); RBC 4.89 M/mm3 (4.00-5.60); WHITE BLOOD COUNT 16.8 K/mm3 (4.0-10.0)
[2020-07-15 10:16] LABS: CALCIUM 8.7 mg/dL (8.5-10.1)
[2020-07-15 10:17] LABS: ALBUMIN 3.3 g/dl (3.4-5.0); BLOOD UREA NITROGEN 95.3 mg/dL (7-18)
[2020-07-15 10:20] LABS: CREATININE 3.1 mg/dL (0.55-1.3)
[2020-07-15 10:21] LABS: TOT PROT 6.4 g/dl (6.4-8.2)
[2020-07-15] MEDS: DULoxetine HCL 30 MG CAPSULE.DR PO SCH ×2 (10:36→22:01)
[2020-07-15] MEDS: methylPREDNISolone NA SUCC 40 MG/1 ML VIAL IVPUSH SCH (10:36)
[2020-07-15] MEDS: ASPIRIN COATED 81 MG TABLET.EC PO SCH (10:36)
[2020-07-15] MEDS: BUDESONIDE/FORMETEROL FUMARATE 160/4.5 mcg INHALER IH SCH ×2 (10:36→22:01)
[2020-07-15] MEDS: EZETIMIBE 10 MG TABLET (FP) PO SCH (10:37)
[2020-07-15] MEDS: metoPROLOL SUCCINATE 25 MG TAB.SR.24H (FP) PO SCH (10:37)
[2020-07-15] MEDS: SODIUM ZIRCONIUM CYCLOSILICATE (LOKELMA) 5 GM PACKET PO SCH (12:22)
[2020-07-15] MEDS: TAMSULOSIN HCL 0.4 MG CAP PO SCH (12:23)
[2020-07-15] MEDS: HEPARIN NA (PORCINE) 5,000 UNITS/ML 1ML VIAL SQ SCH ×2 (12:23→22:01)
[2020-07-15] MEDS: PANTOPRAZOLE 40 MG TABLET PO SCH (12:23)
[2020-07-15] MEDS: ROSUVASTATIN CA 5 MG TABLET (FP) PO SCH (22:00)
[2020-07-16] MEDS ORDERED: METHADONE HCL 40 MG DISPERSABLE TABLET ONE (05:06)
[2020-07-16] MEDS ORDERED: METHADONE HCL 10 MG TABLET ONE (05:06)
[2020-07-16] MEDS: INSULIN SLIDING SCALE (NOVOLOG) 1 VIAL SQ SCH ×3 (06:03→15:37)
[2020-07-16] MEDS: METHADONE 40 MG, METHADONE 20 MG PO SCH (06:04)
[2020-07-16] MEDS: TAMSULOSIN HCL 0.4 MG CAP PO SCH (07:35)
[2020-07-16] MEDS: sitaGLIPtin PHOSPHATE 50 MG TABLET PO SCH (08:13)
[2020-07-16] MEDS: ALBUTEROL SO4 2.5/IPRATROPIUM 0.5 INH SOL 3 ML VIAL.NEB. NEB SCH ×4 (08:13→20:18)
[2020-07-16 08:22] LABS: ALBUMIN 2.8 g/dl (3.4-5.0); BLOOD UREA NITROGEN 83.6 mg/dL (7-18)
[2020-07-16 08:25] LABS: CREATININE 2.7 mg/dL (0.55-1.3)
[2020-07-16 08:26] LABS: BILIRUBIN,TOTAL 1.1 mg/dL (0.2-1)
[2020-07-16 08:27] LABS: TOT PROT 5.2 g/dl (6.4-8.2)
[2020-07-16] MEDS: SODIUM ZIRCONIUM CYCLOSILICATE (LOKELMA) 5 GM PACKET PO SCH (09:03)
[2020-07-16] MEDS: PANTOPRAZOLE 40 MG TABLET PO SCH (09:05)
[2020-07-16] MEDS: ASPIRIN COATED 81 MG TABLET.EC PO SCH (09:05)
[2020-07-16] MEDS: EZETIMIBE 10 MG TABLET (FP) PO SCH (09:05)
[2020-07-16] MEDS: metoPROLOL SUCCINATE 25 MG TAB.SR.24H (FP) PO SCH (09:05)
[2020-07-16] MEDS: DULoxetine HCL 30 MG CAPSULE.DR PO SCH ×2 (09:05→21:34)
[2020-07-16] MEDS: HEPARIN NA (PORCINE) 5,000 UNITS/ML 1ML VIAL SQ SCH ×2 (09:05→21:34)
[2020-07-16] MEDS: BUDESONIDE/FORMETEROL FUMARATE 160/4.5 mcg INHALER IH SCH ×2 (09:06→21:40)
[2020-07-16] MEDS: methylPREDNISolone NA SUCC 40 MG/1 ML VIAL IVPUSH SCH (09:06)
[2020-07-16] MEDS ORDERED: TAMSULOSIN HCL 0.4 MG CAP PO SCH (16:56)
[2020-07-16 21:11] VITALS: BMI 30.2
[2020-07-16] MEDS: ROSUVASTATIN CA 5 MG TABLET (FP) PO SCH (21:34)
[2020-07-17] MEDS ORDERED: METHADONE HCL 10 MG TABLET ONE (06:02)
[2020-07-17] MEDS ORDERED: METHADONE HCL 40 MG DISPERSABLE TABLET ONE (06:02)
[2020-07-17] MEDS: METHADONE 40 MG, METHADONE 20 MG PO SCH (06:09)
[2020-07-17] MEDS: INSULIN SLIDING SCALE (NOVOLOG) 1 VIAL SQ SCH ×3 (06:09→18:13)
[2020-07-17] MEDS: ALBUTEROL SO4 2.5/IPRATROPIUM 0.5 INH SOL 3 ML VIAL.NEB. NEB SCH ×3 (08:08→15:44)
[2020-07-17] MEDS: EZETIMIBE 10 MG TABLET (FP) PO SCH (09:58)
[2020-07-17] MEDS: DULoxetine HCL 30 MG CAPSULE.DR PO SCH (09:58)
[2020-07-17] MEDS: metoPROLOL SUCCINATE 25 MG TAB.SR.24H (FP) PO SCH (09:58)
[2020-07-17] MEDS: ASPIRIN COATED 81 MG TABLET.EC PO SCH (09:58)
[2020-07-17] MEDS: SODIUM ZIRCONIUM CYCLOSILICATE (LOKELMA) 5 GM PACKET PO SCH (09:59)
[2020-07-17] MEDS: HEPARIN NA (PORCINE) 5,000 UNITS/ML 1ML VIAL SQ SCH (09:59)
[2020-07-17] MEDS: PANTOPRAZOLE 40 MG TABLET PO SCH (09:59)
[2020-07-17] MEDS ORDERED: FUROSEMIDE 40 MG TABLET (FP) PO SCH (10:00)
[2020-07-17] MEDS ORDERED: predniSONE 20 MG TABLET (UD) PO SCH (10:00)
[2020-07-17] MEDS: BUDESONIDE/FORMETEROL FUMARATE 160/4.5 mcg INHALER IH SCH (10:01)
[2020-07-17 19:10] VITALS: BP 132/76; PULSE 83; TEMP 98.4
== END 2020-07-17 19:32 | disposition home health service (06) | DRG 133 ==
LOC: JER 23:58 → JERBED 07-07 05:27 → J7W 07-07 15:12 → J4W 07-07 18:50
PROVIDERS: ADMIT Family Medicine; ATTEND Family Medicine
DX: J96.01 Acute respiratory failure with hypoxia (principal); J96.02 Acute respiratory failure with hypercapnia; I10 Essential (primary) hypertension; E78.5 Hyperlipidemia, unspecified; J44.9 Chronic obstructive pulmonary disease, unspecified; E11.9 Type 2 diabetes mellitus without complications; F17.210 Nicotine dependence, cigarettes, uncomplicated; J44.1 Chronic obstructive pulmonary disease with (acute) exacerbation; E87.5 Hyperkalemia; N17.9 Acute kidney failure, unspecified; K59.09 Other constipation; R33.9 Retention of urine, unspecified; N14.1 Nephropathy induced by other drugs, medicaments and biological substances; T50.8X5A Adverse effect of diagnostic agents, initial encounter; I34.0 Nonrheumatic mitral (valve) insufficiency; B18.2 Chronic viral hepatitis C; R41.82 Altered mental status, unspecified; R60.9 Edema, unspecified; Z95.2 Presence of prosthetic heart valve
CPT/HCPCS: 36415; 71045-TC-FY; 71275-TC; 74019-TC-FY; 74176-TC; 76775-TC; 76856-TC; 80048; 80053; 80061; 81003; 82248; 82550; 82570; 82728; 82803; 82962; 83036; 83605; 83615; 83690; 83721; 83880; 84100; 84156; 84300; 84484; 84550; 85025; 85027; 85379; 85610; 85730; 86140; 87086; 87205; 87804; 87899; 93005; 93010; 93306-TC; 94640; 94761; 99285-25; C9803; J0131; J1100; J1644; Q9967; U0003; U0005

== ENCOUNTER 2020-08-10 21:11 | Inpatient (IN) | payer OTHER ==
[2020-08-10 21:51] VITALS: BMI 26.8
[2020-08-10] MEDS ORDERED: ALBUTEROL SO4 2.5/IPRATROPIUM 0.5 INH SOL 3 ML VIAL.NEB. NEB ONE (22:39)
[2020-08-10] MEDS: ALBUTEROL SO4 2.5/IPRATROPIUM 0.5 INH SOL 3 ML VIAL.NEB. NEB SCH ×4 (22:46→23:45)
[2020-08-10 22:50] LABS: BASO % 0.3 % (0-2.0); EOS % 0.5 % (0-4.5); HEMATOCRIT 36.3 % (35.4-49); HEMOGLOBIN 11.9 GM/dL (11.7-16.9); LYMPH % 14.5 % (8-40); MCH 29.9 pg (25.7-33.7); MCHC 32.8 g/dl (32.0-35.9); MEAN CELL VOLUME 91.1 fl (80-96); MEAN PLT VOLUME 8.6 fl (7.5-11.1); NEUT % 74.7 % (42.8-82.8); PLATELET COUNT 204 K/MM3 (134-434); RBC 3.99 M/mm3 (4.00-5.60); RDW 13.3 % (11.9-15.9); WHITE BLOOD COUNT 8.9 K/mm3 (4.0-10.0)
[2020-08-10 22:59] LABS: VENOUS BASE EXCESS 9.5 mmol/L (-2-2); VENOUS O2 SATURATION 22.9 % (70-80); VENOUS PCO2 54.6 mmHg (38-52); VENOUS PH 7.43 (7.310-7.410)
[2020-08-11] MEDS ORDERED: POTASSIUM CHLORIDE TABS 20 MEQ TABLET.ER (FP) PO ONE ×2 (01:06→01:44)
[2020-08-11 01:07] LABS: ALBUMIN 2.8 g/dl (3.4-5.0); BLOOD UREA NITROGEN 17.3 mg/dL (7-18); CALCIUM 8.8 mg/dL (8.5-10.1)
[2020-08-11 01:10] LABS: CREATININE 1.5 mg/dL (0.55-1.3)
[2020-08-11] MEDS ORDERED: MAGNESIUM SULF 50% (8.12 MEQ/2 ML-1 GM VIAL) IVPB ONE (01:10)
[2020-08-11 01:12] LABS: BILIRUBIN,TOTAL 0.4 mg/dL (0.2-1); TOT PROT 6.2 g/dl (6.4-8.2)
[2020-08-11 01:13] LABS: N-TERMINAL BNP 1038.1 pg/ml (5-125)
[2020-08-11] MEDS ORDERED: MAGNESIUM SULFATE IN WATER 2 GM/50 ML IVPB IVPB ONE (01:45)
[2020-08-11 01:59] LABS: MAGNESIUM 1.4 mg/dL (1.8-2.4)
[2020-08-11 05:49] LABS: BASO % 0.4 % (0-2.0); EOS % 0.3 % (0-4.5); HEMATOCRIT 32.7 % (35.4-49); HEMOGLOBIN 10.8 GM/dL (11.7-16.9); MCH 29.9 pg (25.7-33.7); MEAN CELL VOLUME 90.5 fl (80-96); MEAN PLT VOLUME 8.6 fl (7.5-11.1); MONO % 12.6 % (3.8-10.2); NEUT % 67.7 % (42.8-82.8); PLATELET COUNT 224 K/MM3 (134-434); RBC 3.62 M/mm3 (4.00-5.60); RDW 13.1 % (11.9-15.9); WHITE BLOOD COUNT 8.8 K/mm3 (4.0-10.0)
[2020-08-11 06:11] LABS: ALBUMIN 2.5 g/dl (3.4-5.0); BLOOD UREA NITROGEN 17.2 mg/dL (7-18); CALCIUM 8.6 mg/dL (8.5-10.1)
[2020-08-11 06:15] LABS: CREATININE 1.4 mg/dL (0.55-1.3)
[2020-08-11 06:16] LABS: BILIRUBIN,TOTAL 0.4 mg/dL (0.2-1); TOT PROT 5.6 g/dl (6.4-8.2)
[2020-08-11] MEDS ORDERED: ACETAMINOPHEN 325 MG TABLET (FP) PO PRN (09:50)
[2020-08-11] MEDS ORDERED: ALBUTEROL SO4 0.083% IH SOL 2.5 MG/3 ML VIAL.NEB. NEB PRN (09:50)
[2020-08-11] MEDS ORDERED: SODIUM ZIRCONIUM CYCLOSILICATE (LOKELMA) 5 GM PACKET PO SCH (10:00)
[2020-08-11] MEDS: methylPREDNISolone NA SUCC 40 MG/1 ML VIAL IVPUSH SCH ×2 (10:29→17:52)
[2020-08-11] MEDS: amLODIPine BESYLATE 10 MG TABLET (FP) PO SCH (11:07)
[2020-08-11] MEDS: FUROSEMIDE 40 MG TABLET (FP) PO SCH (11:08)
[2020-08-11] MEDS: PANTOPRAZOLE 40 MG TABLET PO SCH (11:08)
[2020-08-11] MEDS: DULoxetine HCL 30 MG CAPSULE.DR PO SCH ×2 (11:08→21:11)
[2020-08-11] MEDS: EZETIMIBE 10 MG TABLET (FP) PO SCH (11:08)
[2020-08-11] MEDS: metoPROLOL SUCCINATE 25 MG TAB.SR.24H (FP) PO SCH (11:08)
[2020-08-11] MEDS: ASPIRIN COATED 81 MG TABLET.EC PO SCH (11:08)
[2020-08-11] MEDS: BUDESONIDE/FORMETEROL FUMARATE 160/4.5 mcg INHALER IH SCH ×2 (11:29→21:11)
[2020-08-11] MEDS ORDERED: METHADONE 40 MG, METHADONE 20 MG PO ONE (11:30)
[2020-08-11] MEDS ORDERED: METHADONE HCL 40 MG DISPERSABLE TABLET ONE (11:32)
[2020-08-11] MEDS ORDERED: METHADONE HCL 10 MG TABLET ONE (11:33)
[2020-08-11] MEDS: INSULIN SLIDING SCALE (NOVOLOG) 1 VIAL SQ SCH ×2 (11:50→17:09)
[2020-08-11] MEDS ORDERED: ROSUVASTATIN CA 5 MG TABLET (FP) PO SCH (22:00)
[2020-08-12] MEDS: methylPREDNISolone NA SUCC 40 MG/1 ML VIAL IVPUSH SCH (01:20)
[2020-08-12] MEDS ORDERED: METHADONE HCL 40 MG DISPERSABLE TABLET ONE (05:59)
[2020-08-12] MEDS ORDERED: METHADONE 40 MG, METHADONE 20 MG PO SCH (06:00)
[2020-08-12] MEDS ORDERED: METHADONE HCL 10 MG TABLET PO SCH (06:00)
[2020-08-12] MEDS ORDERED: METHADONE HCL 10 MG TABLET ONE (06:00)
[2020-08-12] MEDS: INSULIN SLIDING SCALE (NOVOLOG) 1 VIAL SQ SCH ×3 (06:01→16:34)
[2020-08-12 07:36] LABS: BLOOD UREA NITROGEN 26.3 mg/dL (7-18)
[2020-08-12 07:40] LABS: CREATININE 1.3 mg/dL (0.55-1.3)
[2020-08-12] MEDS ORDERED: TAMSULOSIN HCL 0.4 MG CAP PO SCH (08:30)
[2020-08-12] MEDS: ASPIRIN COATED 81 MG TABLET.EC PO SCH (09:54)
[2020-08-12] MEDS: DULoxetine HCL 30 MG CAPSULE.DR PO SCH (09:54)
[2020-08-12] MEDS: metoPROLOL SUCCINATE 25 MG TAB.SR.24H (FP) PO SCH (09:54)
[2020-08-12] MEDS: amLODIPine BESYLATE 10 MG TABLET (FP) PO SCH (09:54)
[2020-08-12] MEDS: EZETIMIBE 10 MG TABLET (FP) PO SCH (09:55)
[2020-08-12] MEDS: PANTOPRAZOLE 40 MG TABLET PO SCH (09:55)
[2020-08-12] MEDS: FUROSEMIDE 40 MG TABLET (FP) PO SCH (09:55)
[2020-08-12] MEDS: BUDESONIDE/FORMETEROL FUMARATE 160/4.5 mcg INHALER IH SCH (09:57)
[2020-08-12] MEDS ORDERED: predniSONE 20 MG TABLET (UD) PO SCH (10:00)
[2020-08-12 15:32] VITALS: BP 112/78; PULSE 68; TEMP 98
== END 2020-08-12 17:50 | disposition home or self-care (01) | DRG 191 ==
LOC: JER 21:11 → JERBED 08-11 01:30 → J4W 08-11 08:09
PROVIDERS: ADMIT Internal Medicine; ATTEND Family Medicine
DX: J44.1 Chronic obstructive pulmonary disease with (acute) exacerbation (principal); F11.20 Opioid dependence, uncomplicated; I13.0 Hypertensive heart and chronic kidney disease with heart failure and stage 1 through stage 4 chronic kidney disease, or unspecified chronic kidney disease; I50.22 Chronic systolic (congestive) heart failure; E78.5 Hyperlipidemia, unspecified; B19.20 Unspecified viral hepatitis C without hepatic coma; I45.10 Unspecified right bundle-branch block; I34.0 Nonrheumatic mitral (valve) insufficiency; E11.22 Type 2 diabetes mellitus with diabetic chronic kidney disease; N18.9 Chronic kidney disease, unspecified; R91.8 Other nonspecific abnormal finding of lung field; E87.6 Hypokalemia; Z99.81 Dependence on supplemental oxygen; Z88.0 Allergy status to penicillin; Z95.2 Presence of prosthetic heart valve
CPT/HCPCS: 36415; 71046-TC-FY; 80048; 80053; 82550; 82803; 82962; 83735; 83880; 84484; 85025; 93005; 93010; 99285-25; C9803; U0003; U0005

== ENCOUNTER 2020-11-08 04:46 | Emergency (ER) | payer OTHER ==
[2020-11-08 05:11] VITALS: BP 129/84; PULSE 91; BMI 26.4
[2020-11-08] MEDS ORDERED: ACETAMINOPHEN 1000 MG/100 ML VIAL (NON FORMULARY) IVPB ONE (05:21)
[2020-11-08] MEDS ORDERED: ACETAMINOPHEN INJECTION 100 ML IVPB ONE (05:25)
[2020-11-08 06:01] LABS: BASO % 0.3 % (0-2.0); EOS % 0.5 % (0-4.5); HEMATOCRIT 37.7 % (35.4-49); HEMOGLOBIN 12.6 GM/dL (11.7-16.9); LYMPH % 7.9 % (8-40); MCH 30.6 pg (25.7-33.7); MCHC 33.3 g/dl (32.0-35.9); MEAN CELL VOLUME 91.8 fl (80-96); MEAN PLT VOLUME 9.1 fl (7.5-11.1); MONO % 10.4 % (3.8-10.2); NEUT % 80.9 % (42.8-82.8); PLATELET COUNT 250 10^3/uL (134-434); RDW 13.3 % (11.9-15.9); WHITE BLOOD COUNT 17.1 K/mm3 (4.0-10.0)
[2020-11-08 06:08] LABS: INR 1.04 (0.83-1.09); PROTHROMBIN TIME (PATIENT) 12.6 SEC (9.7-13.0)
[2020-11-08 06:11] LABS: ACTIVATED PTT 25.8 SECONDS (25.2-36.5)
[2020-11-08 06:25] LABS: CHLORIDE 104 mmol/L (98-107); SODIUM 140 mmol/L (136-145)
[2020-11-08 06:27] LABS: CALCIUM 8.9 mg/dL (8.5-10.1)
[2020-11-08 06:28] LABS: ALBUMIN 3.2 g/dl (3.4-5.0); ANION GAP 7 MMOL/L (8-16); BLOOD UREA NITROGEN 27.8 mg/dL (7-18); CO2 29 mmol/L (21-32); GLUCOSE,RANDOM 109 mg/dL (74-106); LIPASE 88 U/L (73-393)
[2020-11-08 06:31] LABS: CREATININE 1.2 mg/dL (0.55-1.3); SGOT/AST 23 U/L (15-37); SGPT/ALT 28 U/L (13-61)
[2020-11-08 06:32] LABS: BILIRUBIN,TOTAL 0.4 mg/dL (0.2-1); TOT PROT 7.2 g/dl (6.4-8.2)
[2020-11-08 06:33] LABS: ALK PHOS 191 U/L (45-117)
[2020-11-08] MEDS ORDERED: SODIUM CHLORIDE 0.9% 500 ML INFUS.BAG IV ONE (07:19)
[2020-11-08] MEDS ORDERED: MEROPENEM 1 GM in DEXTROSE 5%-WATER 100 ML IVPB ONE (08:11)
[2020-11-08] MEDS ORDERED: MEROPENEM 1 GM VIAL (RESTRICTED TO ID) IVPB ONE (09:10)
[2020-11-08 09:25] LABS: EPI CELLS 2 /uL (0-25.1); HYALINE CASTS 0 /uL (0-3.1); URINE APPEARANCE CLEAR; URINE BACTERIA 1 /uL (0-1359); URINE BILIRUBIN NEGATIVE (NEGATIVE); URINE COLOR YELLOW; URINE GLUCOSE (UA) 3+ (NEGATIVE); URINE KETONE NEGATIVE (NEGATIVE); URINE LEUK ESTERASE NEGATIVE (NEGATIVE); URINE NITRITE NEGATIVE (NEGATIVE); URINE PROTEIN TRACE (NEGATIVE); URINE RBC 6 /uL (0-23.9); URINE UROBILINOGEN 0.2 mg/dL (0.2-1.0); URINE WBC 1 /uL (0-25.8)
[2020-11-08 11:10] VITALS: TEMP 98.2
== END 2020-11-08 10:30 | disposition home or self-care (01) ==
LOC: JER 04:46
PROC: 3E0333Z Introduction of Anti-inflammatory into Peripheral Vein, Percutaneous Approach (ICD-10-PCS; principal; 2020-11-08)
PROC: 3E03329 Introduction of Other Anti-infective into Peripheral Vein, Percutaneous Approach (ICD-10-PCS; 2020-11-08)
DX: R11.2 Nausea with vomiting, unspecified (principal); R10.9 Unspecified abdominal pain
CPT/HCPCS: 36415; 71045-TC-FY; 74176-TC; 80053; 81003; 82550; 83690; 84484; 85025; 85610; 85730; 87086; 93005; 93010; 99285-25; J0131

== ENCOUNTER 2020-12-19 01:33 | Emergency (ER) | payer OTHER ==
[2020-12-19 02:18] VITALS: BMI 25.8
[2020-12-19] MEDS ORDERED: ACETAMINOPHEN 1000 MG/100 ML VIAL IVPB ONE (02:51)
[2020-12-19] MEDS ORDERED: SODIUM CHLORIDE 0.9% 500 ML INFUS.BAG IV ONE (02:51)
[2020-12-19] MEDS ORDERED: MAG HYDROX/AL HYDROX/SIMETH 30 ML UNIT-DOSE CUP PO ONE (02:51)
[2020-12-19] MEDS ORDERED: FAMOTIDINE 20 MG/50 ML IVPB 20 MG/50 ML MG IVPB ONE ×2 (02:51→03:08)
[2020-12-19] MEDS ORDERED: ACETAMINOPHEN INJECTION 100 ML IVPB ONE (03:08)
[2020-12-19] MEDS ORDERED: MAG HYDROX/AL HYDROX/SIMETH 30 ML UNIT-DOSE CUP ONE (03:08)
[2020-12-19 03:52] LABS: BASO % 0.4 % (0-2.0); EOS % 0.8 % (0-4.5); LYMPH % 6.4 % (8-40); MCH 29.3 pg (25.7-33.7); MCHC 32.6 g/dl (32.0-35.9); MEAN PLT VOLUME 9.1 fl (7.5-11.1); NEUT % 80.4 % (42.8-82.8); PLATELET COUNT 202 10^3/uL (134-434); RBC 4.44 M/mm3 (4.00-5.60); RDW 13.3 % (11.9-15.9); WHITE BLOOD COUNT 16.3 K/mm3 (4.0-10.0)
[2020-12-19 04:05] LABS: CHLORIDE 106 mmol/L (98-107); SODIUM 137 mmol/L (136-145)
[2020-12-19 04:09] LABS: CALCIUM 8.4 mg/dL (8.5-10.1); GLUCOSE,RANDOM 91 mg/dL (74-106); LIPASE 32 U/L (73-393)
[2020-12-19 04:10] LABS: BLOOD UREA NITROGEN 26.6 mg/dL (7-18); CO2 28 mmol/L (21-32); MAGNESIUM 2.3 mg/dL (1.8-2.4)
[2020-12-19 04:12] LABS: CREATININE 1.3 mg/dL (0.55-1.3); SGOT/AST 72 U/L (15-37); SGPT/ALT 24 U/L (13-61)
[2020-12-19 04:13] LABS: BILIRUBIN,TOTAL 0.5 mg/dL (0.2-1); TOT PROT 7.3 g/dl (6.4-8.2)
[2020-12-19 04:14] LABS: ALK PHOS 147 U/L (45-117)
[2020-12-19 04:51] LABS: ANION GAP 3 MMOL/L (8-16)
[2020-12-19 07:26] VITALS: BP 116/75; PULSE 76; TEMP 98.2
== END 2020-12-19 07:26 | disposition left against medical advice (07) ==
LOC: JER 01:33
PROC: 3E033GC Introduction of Other Therapeutic Substance into Peripheral Vein, Percutaneous Approach (ICD-10-PCS; principal; 2020-12-19)
DX: R11.2 Nausea with vomiting, unspecified (principal)
CPT/HCPCS: 36415; 71045-TC-FY; 74176-TC; 80053; 82550; 82553; 83605; 83690; 83735; 84132; 84484; 85025; 93005; 93010; 99285-25; C9803; J0131; U0003; U0005

== ENCOUNTER 2021-01-11 06:21 | Emergency (ER) | payer OTHER ==
[2021-01-11 06:54] VITALS: BP 148/82; PULSE 99; TEMP 97.5; BMI 30.7
== END 2021-01-11 08:45 | disposition home or self-care (01) ==
LOC: JER 06:21
DX: R10.9 Unspecified abdominal pain (principal)
CPT/HCPCS: 99281-25

== ENCOUNTER 2021-03-06 14:19 | Inpatient (IN) | payer OTHER ==
[2021-03-06] MEDS ORDERED: DEXAMETHASONE SOD PHOSPHATE 4 MG/1 ML VIAL IVPUSH ONE (14:47)
[2021-03-06] MEDS ORDERED: DEXAMETHASONE SOD PHOSPHATE 4 MG/1 ML VIAL ONE (15:08)
[2021-03-06 15:21] LABS: BASO % 0.4 % (0-2.0); HEMATOCRIT 43.2 % (35.4-49); HEMOGLOBIN 13.9 GM/dL (11.7-16.9); MCH 28.4 pg (25.7-33.7); MCHC 32.2 g/dl (32.0-35.9); MEAN CELL VOLUME 88.1 fl (80-96); MONO % 15.2 % (3.8-10.2); NEUT % 70.4 % (42.8-82.8); PLATELET COUNT 113 10^3/uL (134-434); RDW 14.1 % (11.9-15.9); WHITE BLOOD COUNT 4.2 K/mm3 (4.0-10.0)
[2021-03-06 15:29] LABS: INR 1.08 (0.83-1.09); PROTHROMBIN TIME (PATIENT) 12.1 SEC (9.7-13.0)
[2021-03-06 15:31] LABS: ACTIVATED PTT 31.2 SECONDS (25.2-36.5)
[2021-03-06 15:44] LABS: ALBUMIN 2.9 g/dl (3.4-5.0); CALCIUM 8.4 mg/dL (8.5-10.1)
[2021-03-06 15:46] LABS: CREATININE 1.1 mg/dL (0.55-1.3)
[2021-03-06 15:49] LABS: BILIRUBIN,TOTAL 0.6 mg/dL (0.2-1); TOT PROT 7.2 g/dl (6.4-8.2)
[2021-03-06 15:56] LABS: ERYTHROCYTE SEDIMENTATION RATE 58 mm/hr (0-20)
[2021-03-06] MEDS ORDERED: DOXYCYCLINE HYCLATE 100 MG VIAL ONE (17:20)
[2021-03-06] MEDS: DOXYCYCLINE INJECTION 100 MG in DEXTROSE 5%-WATER 100 ML IVPB SCH (17:37)
[2021-03-06] MEDS ORDERED: SODIUM CHLORIDE 1,000 ML IV SCH (18:30)
[2021-03-06] MEDS ORDERED: CEFTRIAXONE 1 GM in DEXTROSE 5%-WATER - 50 ML IVPB SCH (19:30)
[2021-03-06] MEDS ORDERED: DEXTROSE 5%-WATER - 50 ML IVPB ONE (20:58)
[2021-03-06] MEDS ORDERED: cefTRIAXone SODIUM 1 GM VIAL ONE (20:58)
[2021-03-06] MEDS: BUDESONIDE/FORMETEROL FUMARATE 160/4.5 mcg INHALER IH SCH (21:00)
[2021-03-06] MEDS: CEFTRIAXONE 1 GM in DEXTROSE 5%-WATER - 50 ML IVPB SCH (21:15)
[2021-03-06] MEDS: ACETAMINOPHEN 325 MG TABLET (FP) PO PRN (21:16)
[2021-03-07 00:49] VITALS: BMI 26.5
[2021-03-07] MEDS ORDERED: DOXYCYCLINE HYCLATE 100 MG VIAL ONE ×2 (05:16→16:55)
[2021-03-07] MEDS ORDERED: DEXTROSE 5%-WATER 100 ML IVPB ONE ×2 (05:16→16:55)
[2021-03-07] MEDS: DOXYCYCLINE INJECTION 100 MG in DEXTROSE 5%-WATER 100 ML IVPB SCH ×2 (05:20→17:03)
[2021-03-07] MEDS ORDERED: DEXAMETHASONE SOD PHOSPHATE 10 MG/1 ML VIAL IVPUSH SCH (10:00)
[2021-03-07] MEDS ORDERED: methaDONE HCL 40 MG DISPERSABLE TABLET ONE (10:37)
[2021-03-07] MEDS ORDERED: methaDONE HCL 10 MG TABLET ONE (10:37)
[2021-03-07] MEDS ORDERED: cefTRIAXone SODIUM 1 GM VIAL ONE (10:37)
[2021-03-07] MEDS ORDERED: DEXTROSE 5%-WATER - 50 ML IVPB ONE (10:37)
[2021-03-07] MEDS: CEFTRIAXONE 1 GM in DEXTROSE 5%-WATER - 50 ML IVPB SCH (10:41)
[2021-03-07] MEDS: methaDONE 40 MG, methaDONE 20 MG PO SCH (10:41)
[2021-03-07] MEDS: ENOXAPARIN NA (PORCINE) 40 MG/0.4 ML DISP.SYRIN SQ SCH ×2 (10:41→11:11)
[2021-03-07] MEDS: DEXAMETHASONE SOD PHOSPHATE 4 MG/1 ML VIAL IVPUSH SCH (10:49)
[2021-03-07] MEDS: BUDESONIDE/FORMETEROL FUMARATE 160/4.5 mcg INHALER IH SCH ×2 (10:51→21:31)
[2021-03-07] MEDS ORDERED: REMDESIVIR 200 MG in SODIUM CHLORIDE 250 ML IVPB ONE (15:00)
[2021-03-07] MEDS: guaiFENesin 200 MG/10 ML 10 ML UNIT-DOSE CUPS PO PRN (19:53)
[2021-03-08] MEDS ORDERED: DEXTROSE 5%-WATER 100 ML IVPB ONE ×2 (04:51→17:54)
[2021-03-08] MEDS ORDERED: DOXYCYCLINE HYCLATE 100 MG VIAL ONE ×2 (04:51→17:53)
[2021-03-08] MEDS: DOXYCYCLINE INJECTION 100 MG in DEXTROSE 5%-WATER 100 ML IVPB SCH ×2 (05:26→18:55)
[2021-03-08] MEDS ORDERED: PT OWN MED DRAWER 7, Y5N ONE (06:20)
[2021-03-08] MEDS ORDERED: methaDONE HCL 40 MG DISPERSABLE TABLET ONE (06:20)
[2021-03-08] MEDS ORDERED: methaDONE HCL 10 MG TABLET ONE (06:20)
[2021-03-08] MEDS: methaDONE 40 MG, methaDONE 20 MG PO SCH (06:42)
[2021-03-08] MEDS: guaiFENesin 200 MG/10 ML 10 ML UNIT-DOSE CUPS PO PRN ×2 (08:21→18:56)
[2021-03-08] MEDS ORDERED: cefTRIAXone SODIUM 1 GM VIAL ONE (09:52)
[2021-03-08] MEDS ORDERED: DEXTROSE 5%-WATER - 50 ML IVPB ONE (09:52)
[2021-03-08] MEDS: CEFTRIAXONE 1 GM in DEXTROSE 5%-WATER - 50 ML IVPB SCH (10:07)
[2021-03-08] MEDS: BUDESONIDE/FORMETEROL FUMARATE 160/4.5 mcg INHALER IH SCH ×2 (10:08→22:02)
[2021-03-08] MEDS: DEXAMETHASONE SOD PHOSPHATE 4 MG/1 ML VIAL IVPUSH SCH (10:08)
[2021-03-08] MEDS: ACETAMINOPHEN 325 MG TABLET (FP) PO PRN (13:58)
[2021-03-08] MEDS: POLYETHYLENE GLYCOL (HEALTHYLAX) 3350 17 GM PACKET PO SCH (16:40)
[2021-03-08] MEDS: REMDESIVIR 100 MG in SODIUM CHLORIDE 250 ML IVPB SCH (16:40)
[2021-03-08] MEDS: ENOXAPARIN NA (PORCINE) 40 MG/0.4 ML DISP.SYRIN SQ SCH (19:05)
[2021-03-09] MEDS ORDERED: LIDOCAINE 5% TOPICAL PATCH TP ONE (00:01)
[2021-03-09] MEDS ORDERED: DEXTROSE 5%-WATER 100 ML IVPB ONE ×2 (04:58→17:26)
[2021-03-09] MEDS ORDERED: DOXYCYCLINE HYCLATE 100 MG VIAL ONE ×2 (04:58→17:25)
[2021-03-09] MEDS: DOXYCYCLINE INJECTION 100 MG in DEXTROSE 5%-WATER 100 ML IVPB SCH ×2 (05:37→17:36)
[2021-03-09] MEDS: methaDONE 40 MG, methaDONE 20 MG PO SCH (06:05)
[2021-03-09] MEDS ORDERED: methaDONE HCL 40 MG DISPERSABLE TABLET ONE (06:05)
[2021-03-09] MEDS ORDERED: methaDONE HCL 10 MG TABLET ONE (06:05)
[2021-03-09] MEDS ORDERED: TAMSULOSIN HCL 0.4 MG CAP PO SCH (08:30)
[2021-03-09] MEDS ORDERED: DEXTROSE 5%-WATER - 50 ML IVPB ONE (09:04)
[2021-03-09] MEDS ORDERED: cefTRIAXone SODIUM 1 GM VIAL ONE (09:04)
[2021-03-09] MEDS ORDERED: PT OWN MED DRAWER 7, Y5N ONE ×3 (09:04→17:26)
[2021-03-09] MEDS: metoPROLOL SUCCINATE 25 MG TAB.SR.24H (FP) PO SCH (09:18)
[2021-03-09] MEDS: PANTOPRAZOLE 40 MG TABLET PO SCH (09:18)
[2021-03-09] MEDS: FUROSEMIDE 40 MG TABLET (FP) PO SCH (09:18)
[2021-03-09] MEDS: ENOXAPARIN NA (PORCINE) 40 MG/0.4 ML DISP.SYRIN SQ SCH (09:18)
[2021-03-09] MEDS: ASPIRIN COATED 81 MG TABLET.EC PO SCH (09:18)
[2021-03-09] MEDS: amLODIPine BESYLATE 5 MG TABLET (FP) PO SCH (09:18)
[2021-03-09] MEDS: POLYETHYLENE GLYCOL (HEALTHYLAX) 3350 17 GM PACKET PO SCH (09:19)
[2021-03-09] MEDS: CEFTRIAXONE 1 GM in DEXTROSE 5%-WATER - 50 ML IVPB SCH (09:19)
[2021-03-09] MEDS: DEXAMETHASONE SOD PHOSPHATE 4 MG/1 ML VIAL IVPUSH SCH (09:20)
[2021-03-09] MEDS: BUDESONIDE/FORMETEROL FUMARATE 160/4.5 mcg INHALER IH SCH ×2 (09:55→22:41)
[2021-03-09] MEDS ORDERED: LIDOCAINE PATCH REMOVAL MC ONE (12:00)
[2021-03-09] MEDS: LIPASE/PROTEASE/AMYLASE 36,000 UNIT CAPSULE PO SCH ×2 (12:25→17:36)
[2021-03-09 13:22] LABS: CALCIUM 8.6 mg/dL (8.5-10.1)
[2021-03-09 13:23] LABS: ALBUMIN 2.6 g/dl (3.4-5.0); BASO % 0.1 % (0-2.0); BLOOD UREA NITROGEN 28.3 mg/dL (7-18); HEMATOCRIT 42.8 % (35.4-49); HEMOGLOBIN 13.6 GM/dL (11.7-16.9); LYMPH % 6.2 % (8-40); MCH 28.5 pg (25.7-33.7); MCHC 31.8 g/dl (32.0-35.9); MEAN CELL VOLUME 89.8 fl (80-96); MEAN PLT VOLUME 9.1 fl (7.5-11.1); NEUT % 86.7 % (42.8-82.8); PLATELET COUNT 144 10^3/uL (134-434); RBC 4.76 M/mm3 (4.00-5.60); RDW 14.5 % (11.9-15.9); WHITE BLOOD COUNT 8.9 K/mm3 (4.0-10.0)
[2021-03-09 13:27] LABS: BILIRUBIN,TOTAL 0.4 mg/dL (0.2-1); TOT PROT 6.7 g/dl (6.4-8.2)
[2021-03-09] MEDS: REMDESIVIR 100 MG in SODIUM CHLORIDE 250 ML IVPB SCH (15:20)
[2021-03-09] MEDS: ROSUVASTATIN CA 5 MG TABLET PO SCH (22:41)
[2021-03-10] MEDS ORDERED: DEXTROSE 5%-WATER 100 ML IVPB ONE (05:48)
[2021-03-10] MEDS ORDERED: methaDONE HCL 10 MG TABLET ONE (05:48)
[2021-03-10] MEDS ORDERED: methaDONE HCL 40 MG DISPERSABLE TABLET ONE (05:48)
[2021-03-10] MEDS ORDERED: DOXYCYCLINE HYCLATE 100 MG VIAL ONE (05:48)
[2021-03-10] MEDS: methaDONE 40 MG, methaDONE 20 MG PO SCH (05:49)
[2021-03-10] MEDS: DOXYCYCLINE INJECTION 100 MG in DEXTROSE 5%-WATER 100 ML IVPB SCH (05:50)
[2021-03-10] MEDS: LIPASE/PROTEASE/AMYLASE 36,000 UNIT CAPSULE PO SCH ×3 (09:52→17:59)
[2021-03-10] MEDS: amLODIPine BESYLATE 5 MG TABLET (FP) PO SCH (09:53)
[2021-03-10] MEDS: ENOXAPARIN NA (PORCINE) 40 MG/0.4 ML DISP.SYRIN SQ SCH (09:53)
[2021-03-10] MEDS: ASPIRIN COATED 81 MG TABLET.EC PO SCH (09:53)
[2021-03-10] MEDS: DEXAMETHASONE SOD PHOSPHATE 4 MG/1 ML VIAL IVPUSH SCH (09:53)
[2021-03-10] MEDS: FUROSEMIDE 40 MG TABLET (FP) PO SCH (09:53)
[2021-03-10] MEDS: TAMSULOSIN HCL 0.4 MG CAP PO SCH (09:53)
[2021-03-10] MEDS: metoPROLOL SUCCINATE 25 MG TAB.SR.24H (FP) PO SCH (09:53)
[2021-03-10] MEDS: PANTOPRAZOLE 40 MG TABLET PO SCH (09:53)
[2021-03-10] MEDS: BUDESONIDE/FORMETEROL FUMARATE 160/4.5 mcg INHALER IH SCH ×2 (09:54→22:02)
[2021-03-10] MEDS: POLYETHYLENE GLYCOL (HEALTHYLAX) 3350 17 GM PACKET PO SCH (09:54)
[2021-03-10 13:18] LABS: HEMATOCRIT 41.2 % (35.4-49); HEMOGLOBIN 13.5 GM/dL (11.7-16.9); MCH 29.1 pg (25.7-33.7); MCHC 32.8 g/dl (32.0-35.9); MEAN CELL VOLUME 88.5 fl (80-96); MEAN PLT VOLUME 9.1 fl (7.5-11.1); PLATELET COUNT 154 10^3/uL (134-434); RBC 4.65 M/mm3 (4.00-5.60); RDW 14.3 % (11.9-15.9)
[2021-03-10 13:39] LABS: CALCIUM 8.5 mg/dL (8.5-10.1)
[2021-03-10 13:40] LABS: ALBUMIN 2.5 g/dl (3.4-5.0); BLOOD UREA NITROGEN 32.7 mg/dL (7-18)
[2021-03-10 13:44] LABS: BILIRUBIN,TOTAL 0.6 mg/dL (0.2-1); TOT PROT 6.3 g/dl (6.4-8.2)
[2021-03-10] MEDS: REMDESIVIR 100 MG in SODIUM CHLORIDE 250 ML IVPB SCH (13:59)
[2021-03-10] MEDS ORDERED: LACTULOSE 20 GM/30 ML UDC (FOR ORAL USE ONLY) PO ONE (17:29)
[2021-03-10] MEDS: ROSUVASTATIN CA 5 MG TABLET PO SCH (22:01)
[2021-03-11] MEDS ORDERED: methaDONE HCL 40 MG DISPERSABLE TABLET ONE (05:44)
[2021-03-11] MEDS ORDERED: methaDONE HCL 10 MG TABLET ONE (05:44)
[2021-03-11] MEDS: methaDONE 40 MG, methaDONE 20 MG PO SCH (05:52)
[2021-03-11] MEDS ORDERED: PT OWN MED DRAWER 7, Y5N ONE ×3 (08:15→12:46)
[2021-03-11] MEDS: LIPASE/PROTEASE/AMYLASE 36,000 UNIT CAPSULE PO SCH ×2 (08:27→13:03)
[2021-03-11] MEDS: TAMSULOSIN HCL 0.4 MG CAP PO SCH (08:27)
[2021-03-11] MEDS: ENOXAPARIN NA (PORCINE) 40 MG/0.4 ML DISP.SYRIN SQ SCH (10:47)
[2021-03-11] MEDS: amLODIPine BESYLATE 5 MG TABLET (FP) PO SCH (10:48)
[2021-03-11] MEDS: FUROSEMIDE 40 MG TABLET (FP) PO SCH (10:48)
[2021-03-11] MEDS: ASPIRIN COATED 81 MG TABLET.EC PO SCH (10:48)
[2021-03-11] MEDS: PANTOPRAZOLE 40 MG TABLET PO SCH (10:48)
[2021-03-11] MEDS: DEXAMETHASONE SOD PHOSPHATE 4 MG/1 ML VIAL IVPUSH SCH (10:48)
[2021-03-11] MEDS: metoPROLOL SUCCINATE 25 MG TAB.SR.24H (FP) PO SCH (10:48)
[2021-03-11] MEDS: POLYETHYLENE GLYCOL (HEALTHYLAX) 3350 17 GM PACKET PO SCH (11:02)
[2021-03-11] MEDS: BUDESONIDE/FORMETEROL FUMARATE 160/4.5 mcg INHALER IH SCH (11:04)
[2021-03-11] MEDS: REMDESIVIR 100 MG in SODIUM CHLORIDE 250 ML IVPB SCH (14:31)
[2021-03-11 16:32] VITALS: BP 107/76; PULSE 67; TEMP 98.3
== END 2021-03-11 16:50 | disposition home or self-care (01) | DRG 177 ==
LOC: JER 14:19 → JERBED 16:20 → J6S 20:15 → J5S 03-07 09:27
PROVIDERS: ADMIT Internal Medicine; ATTEND Internal Medicine
PROC: 3E0333Z Introduction of Anti-inflammatory into Peripheral Vein, Percutaneous Approach (ICD-10-PCS; principal; 2021-03-07)
PROC: XW033E5 Introduction of Remdesivir Anti-infective into Peripheral Vein, Percutaneous Approach, New Technology Group 5 (ICD-10-PCS; 2021-03-07)
DX: U07.1 COVID-19 (principal); J12.82 Pneumonia due to coronavirus disease 2019; I13.0 Hypertensive heart and chronic kidney disease with heart failure and stage 1 through stage 4 chronic kidney disease, or unspecified chronic kidney disease; E11.9 Type 2 diabetes mellitus without complications; E78.5 Hyperlipidemia, unspecified; J44.9 Chronic obstructive pulmonary disease, unspecified; F11.90 Opioid use, unspecified, uncomplicated; R74.01 Elevation of levels of liver transaminase levels; B19.20 Unspecified viral hepatitis C without hepatic coma; E88.81 Metabolic syndrome and other insulin resistance; N40.0 Benign prostatic hyperplasia without lower urinary tract symptoms; R09.02 Hypoxemia; E11.22 Type 2 diabetes mellitus with diabetic chronic kidney disease; N18.9 Chronic kidney disease, unspecified; I50.9 Heart failure, unspecified; Z99.81 Dependence on supplemental oxygen
CPT/HCPCS: 36415; 71045-TC-FY; 80053; 82728; 83615; 84443; 84484; 85025; 85027; 85379; 85610; 85651; 85730; 86140; 87804; 87807; 87899; 93005; 93010; 99285-25; C9399; C9803; U0003; U0005

== ENCOUNTER 2021-03-23 06:19 | Emergency (ER) | payer OTHER ==
[2021-03-23 06:38] VITALS: BP 98/60; PULSE 85; TEMP 98.1; BMI 25.8
[2021-03-23] MEDS ORDERED: ACETAMINOPHEN 1000 MG/100 ML BAG IVPB ONE (08:33)
[2021-03-23] MEDS ORDERED: ACETAMINOPHEN INJECTION 100 ML IVPB ONE (08:51)
[2021-03-23 09:17] LABS: BASO % 0.2 % (0-2.0); EOS % 0.4 % (0-4.5); HEMATOCRIT 41.1 % (35.4-49); HEMOGLOBIN 13.2 GM/dL (11.7-16.9); LYMPH % 12.5 % (8-40); MCH 28.6 pg (25.7-33.7); MEAN CELL VOLUME 89.4 fl (80-96); MONO % 9.4 % (3.8-10.2); NEUT % 77.5 % (42.8-82.8); PLATELET COUNT 150 10^3/uL (134-434); RDW 14.4 % (11.9-15.9); WHITE BLOOD COUNT 11.9 K/mm3 (4.0-10.0)
[2021-03-23 09:51] LABS: CALCIUM 8.9 mg/dL (8.5-10.1)
[2021-03-23 09:52] LABS: ALBUMIN 2.9 g/dl (3.4-5.0); BLOOD UREA NITROGEN 27.3 mg/dL (7-18)
[2021-03-23 09:55] LABS: CREATININE 1.2 mg/dL (0.55-1.3)
[2021-03-23 09:57] LABS: BILIRUBIN,TOTAL 0.7 mg/dL (0.2-1); TOT PROT 5.9 g/dl (6.4-8.2)
== END 2021-03-23 12:25 | disposition home or self-care (01) ==
LOC: JER 06:19
PROC: 3E0333Z Introduction of Anti-inflammatory into Peripheral Vein, Percutaneous Approach (ICD-10-PCS; principal; 2021-03-23)
DX: G57.83 Other specified mononeuropathies of bilateral lower limbs (principal)
CPT/HCPCS: 36415; 80053; 85025; 93970-TC; 99284-25; J0131